=== PATIENT | female | born 1935 | race Caucasian/White ===

== ENCOUNTER 2017-12-06 14:34 | Inpatient (IN) | payer MEDICARE ==
[2017-12-06] VITALS (12 sets, daily range): BP systolic 152–198; BP diastolic 80–112; PULSE 76–117; RESP 18–28; TEMP 97.7–98.4; O2SAT 92–98
[~2017-12-06] VITALS: Ht 160 cm; Wt 66.0 kg
[2017-12-06] MEDS ORDERED: VALS1TAB70 PO (15:11)
[2017-12-06] MEDS ORDERED: METO-489 PO (15:11)
[2017-12-06] MEDS ORDERED: ESTR.3 PO (15:11)
[2017-12-06] MEDS ORDERED: WARF-18 PO (15:11)
[2017-12-06] MEDS ORDERED: OMEP20TA93 PO (15:11)
[2017-12-06] MEDS ORDERED: CART120C PO (15:11)
[2017-12-06] MEDS ORDERED: SODIUM CHLORIDE 0.9% FLUSH 10 ML FLUSH IVF PRN (15:15)
--- NOTE | 2017-12-06 15:46 | PD ---
HPI Chief Complaint: Syncope/Near-Syncope Time Seen by Provider: 15:12 Travel History International Travel<30 days: No Contact w/Intl Traveler<30days: No Traveled to known affect area: No History of Present Illness HPI 82-year-old female patient with history of hypertension, A. fib currently on Coumadin, presents to the ER today because she has had about a 3 day history of dyspnea on exertion, lightheadedness, general weakness according to her . She denies any fevers, chest pains, coughing, or any other symptoms. Modifying Factors: None Associated Signs & Symptoms: Dyspnea on exertion, lightheadedness, general weakness Risk Factors: None PFSH Past Medical History Hx Anticoagulant Therapy: Yes (warfarin) Atrial Fibrillation: Yes Hypertension: Yes Past Surgical History Hysterectomy: Yes Social History Alcohol Use: Yes (daily couple glasses ) Tobacco Use: No Substance Use: No Allergies-Medications (Allergen,Severity, Reaction): Coded Allergies: Penicillins (Verified Allergy, Severe, vomiting, 12/06/17) Sulfa (Sulfonamide Antibiotics) (Verified Allergy, Severe, vomiting, ) ciprofloxacin (Verified Allergy, Severe, vomiting, 12/06/17) Reported Meds & Prescriptions Reported Meds & Active Scripts Active Reported Warfarin 2.5 Mg Tab 2.5 Mg PO DAILY Valsartan 320 Mg Tab 320 Mg PO DAILY Premarin (Estrogens Conjugated) 0.3 Mg Tab 0.3 Mg PO DAILY Omeprazole 20 Mg Tab 20 Mg PO DAILY Metoprolol Succinate/HCTZ 100-12.5 ER 100 Mg-12.5 Mg Tab 1 Tab PO DAILY Cartia Xt (Diltiazem ER 24 HR) 120 Mg Caper 120 Mg PO DAILY Review of Systems Except as stated in HPI: all other systems reviewed are Neg Physical Exam Narrative GENERAL: Well-developed elderly female patient currently in mild distress. Awake and oriented 3. SKIN: Focused skin assessment warm/dry. HEAD: Atraumatic. Normocephalic. EYES: Pupils equal and round. No scleral icterus. No injection or drainage. ENT: No nasal bleeding or discharge. Mucous membranes pink and moist. NECK: Trachea midline. No JVD. CARDIOVASCULAR: Irregularly irregular. RESPIRATORY: No accessory muscle use. Clear to auscultation. Breath sounds equal bilaterally. GASTROINTESTINAL: Abdomen soft, non-tender, nondistended. Hepatic and splenic margins not palpable. RECTAL EXAM: No masses or tenderness, stool is brown. MUSCULOSKELETAL: No obvious deformities. No clubbing. No cyanosis. No edema. NEUROLOGICAL: Awake and alert. No obvious cranial nerve deficits. Motor grossly within normal limits. Normal speech. PSYCHIATRIC: Appropriate mood and affect; insight and judgment normal. Data Data Last Documented VS Vital Signs Date Time Temp Pulse Resp B/P (MAP) Pulse Ox O2 Delivery O2 Flow Rate FiO2 12/06/17 15:39 (126) 97 Nasal Cannula 2.00 12/06/17 15:03 101 28 12/06/17 14:49 98.2 Orders Orders Electrocardiogram (12/06/17 15:12) Complete Blood Count With Diff (12/06/17 15:12) Comprehensive Metabolic Panel (12/06/17 15:12) Magnesium (Mg) (12/06/17 15:12) Troponin I (12/06/17 15:12) Chest, Single Ap (12/06/17 15:12) Ct Brain W/O Iv Contrast(Rout) (12/06/17 15:12) Ecg Monitoring (12/06/17 15:12) Iv Access Insert/Monitor (12/06/17 15:12) Oximetry (12/06/17 15:12) Sodium Chloride 0.9% Flush (Ns Flush) (12/06/17 15:15) Prothrombin Time / Inr (Pt) (12/06/17 15:19) Act Partial Throm Time (Ptt) (12/06/17 15:19) D-Dimer (12/06/17 15:19) Type And Screen (12/06/17 16:52) Red Blood Cells (Rbc) (12/06/17 16:52) Blood Product Administration (12/06/17 16:52) Sodium Chlor 0.9% 250 Ml Inj (Ns 250 Ml (12/06/17 17:00) Sodium Chlorid 0.9% 500 Ml Inj (Ns 500 M (12/06/17 17:00) Ct Pulmonary Angiogram (12/06/17 17:02) Resp Oxygen Nasal Cannula (12/06/17 ) Electrocardiogram (12/06/17 17:05) Electrocardiogram (12/06/17 20:05) Sodium Chloride 0.9% Flush (Ns Flush) (12/06/17 17:15) Sodium Chloride 0.9% Flush (Ns Flush) (12/06/17 21:00) Nitroglycerin 2% Oint (Nitroglycerin 2% (12/06/17 18:00) Aspirin (Aspirin) (12/07/17 09:00) Labs Laboratory Tests Test 12/06/17 15:15 White Blood Count 19.1 TH/MM3 Red Blood Count 2.41 MIL/MM3 Hemoglobin 7.9 GM/DL Hematocrit 24.2 % Mean Corpuscular Volume 100.2 FL Mean Corpuscular Hemoglobin 32.7 PG Mean Corpuscular Hemoglobin Concent 32.7 % Red Cell Distribution Width 18.0 % Platelet Count 201 TH/MM3 Mean Platelet Volume 10.1 FL Neutrophils (%) (Auto) 65.1 % Lymphocytes (%) (Auto) 12.2 % Monocytes (%) (Auto) 20.0 % Eosinophils (%) (Auto) 1.1 % Basophils (%) (Auto) 1.6 % Neutrophils # (Auto) 12.5 TH/MM3 Lymphocytes # (Auto) 2.3 TH/MM3 Monocytes # (Auto) 3.8 TH/MM3 Eosinophils # (Auto) 0.2 TH/MM3 Basophils # (Auto) 0.3 TH/MM3 CBC Comment AUTO DIFF Differential Total Cells Counted 100 Neutrophils % (Manual) 59 % Band Neutrophils % 12 % Lymphocytes % 14 % Monocytes % 13 % Neutrophils # (Manual) 13.9 TH/MM3 Myelocytes 2 % Differential Comment FINAL DIFF MANUAL Toxic Granulation 1+ Platelet Estimate NORMAL Platelet Morphology Comment NORMAL Prothrombin Time 25.1 SEC Prothromb Time International Ratio 2.5 RATIO Activated Partial Thromboplast Time 36.9 SEC D-Dimer Quantitative (PE/DVT) 0.80 MG/L FEU Blood Urea Nitrogen 19 MG/DL Creatinine 0.70 MG/DL Random Glucose 165 MG/DL Total Protein 7.8 GM/DL Albumin 3.1 GM/DL Calcium Level 8.7 MG/DL Magnesium Level 1.7 MG/DL Alkaline Phosphatase 213 U/L Aspartate Amino Transf (AST/SGOT) 455 U/L Alanine Aminotransferase (ALT/SGPT) 378 U/L Total Bilirubin 2.7 MG/DL Sodium Level 137 MEQ/L Potassium Level 3.9 MEQ/L Chloride Level 105 MEQ/L Carbon Dioxide Level 21.2 MEQ/L Anion Gap 11 MEQ/L Estimat Glomerular Filtration Rate 80 ML/MIN Troponin I LESS THAN 0.02 NG/ML MDM Medical Decision Making Medical Screen Exam Complete: Yes Emergency Medical Condition: Yes Medical Record Reviewed: Yes Interpretation(s) EKG shows A. fib at a rate of 89 bpm. No signs of acute ST elevations or depressions. Laboratory Tests Test 12/06/17 15:15 White Blood Count 19.1 TH/MM3 (4.0-11.0) Red Blood Count 2.41 MIL/MM3 (4.00-5.30) Hemoglobin 7.9 GM/DL (11.6-15.3) Hematocrit 24.2 % (35.0-46.0) Mean Corpuscular Volume 100.2 FL (80.0-100.0) Red Cell Distribution Width 18.0 % (11.6-17.2) Monocytes (%) (Auto) 20.0 % (0.0-8.0) Neutrophils # (Auto) 12.5 TH/MM3 (1.8-7.7) Monocytes # (Auto) 3.8 TH/MM3 (0-0.9) Basophils # (Auto) 0.3 TH/MM3 (0-0.2) Band Neutrophils % 12 % (0-6) Monocytes % 13 % (0-8) Neutrophils # (Manual) 13.9 TH/MM3 (1.8-7.7) Myelocytes 2 % (0-0) Toxic Granulation 1+ (NORMAL) Prothrombin Time 25.1 SEC (9.8-11.6) Activated Partial Thromboplast Time 36.9 SEC (24.3-30.1) D-Dimer Quantitative (PE/DVT) 0.80 MG/L FEU (0.00-0.50) Blood Urea Nitrogen 19 MG/DL (7-18) Random Glucose 165 MG/DL (74-106) Albumin 3.1 GM/DL (3.4-5.0) Alkaline Phosphatase 213 U/L (45-117) Aspartate Amino Transf (AST/SGOT) 455 U/L (15-37) Alanine Aminotransferase (ALT/SGPT) 378 U/L (10-53) Total Bilirubin 2.7 MG/DL (0.2-1.0) Estimat Glomerular Filtration Rate 80 ML/MIN (>89) Troponin I LESS THAN 0.02 NG/ML Last [address] 12/06/17 1512 Signed Impressions: Service Date/Time: November 15:46 - CONCLUSION: 1. Mild periventricular white matter small vessel ischemic changes bilaterally. 2. Mild cerebral atrophy. 3. 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 4. No acute infarct, acute hemorrhage , midline shift or extra-axial fluid collections. Storm Garrett MD Chest X-Ray 12/06/17 1512 Signed Impressions: Service Date/Time: November 15:31 - CONCLUSION: Bibasilar patchiness consistent with atelectasis and/or infiltrates. Storm Garrett MD Differential Diagnosis Dyspnea on exertion, dizziness: Dehydration versus dysrhythmias versus CHF versus pneumonia Narrative Course Lab work shows no signs of lab work shows significant anemia. IV fluids and blood was given in the ER. Hemoccult is negative. Blood cell count is elevated as well it is uncertain whether this is a pneumonia or not. She does have elevated d-dimer and CTA was ordered for further evaluation. Her liver enzymes are fairly elevated as well and CT abdomen was also ordered for further evaluation as well. CT the brain was negative for any signs of acute intracranial processes. Patient has several issues going on at this point and will need to be evaluated further. Case is discussed with Dr. Layne for admission for further evaluation and treatment. HemaPrompt Point of Care Internal Pos. & Neg. Controls: Passed Fecal Specimen Occult Blood: Negative Diagnosis Primary Impression: Symptomatic anemia Additional Impressions: Near syncope Elevated liver enzymes Leukocytosis Admitting Information Admitting Physician Requests: Admit Dea Robbins MD Dec 06, 2017 15:46
[2017-12-06 15:55] LABS: AUTOMATED NEUTROPHIL # 12.5 TH/MM3 (1.8-7.7); BASOPHIL # 0.3 TH/MM3 (0-0.2); BASOPHIL % 1.6 % (0.0-2.0); EOSINOPHIL # 0.2 TH/MM3 (0-0.4); EOSINOPHIL % 1.1 % (0.0-4.0); HEMATOCRIT 24.2 % (35.0-46.0); HEMOGLOBIN 7.9 GM/DL (11.6-15.3); LYMPH % 12.2 % (9.0-44.0); LYMPHOCYTE # 2.3 TH/MM3 (1.0-4.8); MEAN CELL VOLUME 100.2 FL (80.0-100.0); MEAN CORPUSCULAR HEMOGLOBIN 32.7 PG (27.0-34.0); MEAN CORPUSCULAR HGB CONC 32.7 % (32.0-36.0); MEAN PLATELET VOLUME 10.1 FL (7.0-11.0); MONOCYTE # 3.8 TH/MM3 (0-0.9); NEUT % 65.1 % (16.0-70.0); PLATELET COUNT 201 TH/MM3 (150-450); RED BLOOD COUNT 2.41 MIL/MM3 (4.00-5.30); WHITE BLOOD COUNT 19.1 TH/MM3 (4.0-11.0)
--- NOTE | 2017-12-06 16:02 | RADRPT ---
EXAM DATE/TIME: 12/06/2017 15:46 [facility] COMPARISON: No previous studies available for comparison. INDICATIONS : Patient complains of dizziness. RADIATION DOSE: 33.50 CTDIvol (mGy) MEDICAL HISTORY : Hypertension. A fib SURGICAL HISTORY : Hysterectomy. ENCOUNTER: Initial ACUITY: 3 days PAIN SCALE: 0/10 LOCATION: cranial TECHNIQUE: Multiple contiguous axial images were obtained of the head. Using automated exposure control and adj ustment of the mA and/or kV according to patient size, radiation dose was kept as low as reasonably a chievable to obtain optimal diagnostic quality images. DICOM format image data is available electro nically for review and comparison. FINDINGS: CEREBRUM: Mild cerebral atrophy is noted. Scattered old tiny lacunar infarcts are noted involving the left basa l ganglia and the right cerebellar hemisphere. Mild periventricular white matter small vessel ischemi c changes are noted bilaterally. No evidence of midline shift, mass lesion, hemorrhage or acute infar ction. No extra-axial fluid collections are seen. POSTERIOR FOSSA: The cerebellum and brainstem are intact. The 4th ventricle is midline. The cerebellopontine angle i s unremarkable. EXTRACRANIAL: The visualized portion of the orbits is intact. SKULL: The calvaria is intact. No evidence of skull fracture. CONCLUSION: 1. Mild periventricular white matter small vessel ischemic changes bilaterally. 2. Mild cerebral atrophy. 3. 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 4. No acute infarct, acute hemorrhage, midline shift or extra-axial fluid collections. Storm Garrett MD on December 06, 2017 at 15:57 Board Certified Radiologist. This report was verified electronically.
--- NOTE | 2017-12-06 16:11 | RADRPT ---
EXAM DATE/TIME: 12/06/2017 15:31 [facility] COMPARISON: No previous studies available for comparison. INDICATIONS : Shortness of breath- Flu like symptoms. MEDICAL HISTORY : Hypertension. AFIB. SURGICAL HISTORY : Hysterectomy. ENCOUNTER: Initial ACUITY: 1 day PAIN SCORE: 0/10 LOCATION: Bilateral chest FINDINGS: Bibasilar patchiness is noted consistent with atelectasis and/or infiltrates. The heart is normal. Th e pulmonary vascular pattern is normal. CONCLUSION: Bibasilar patchiness consistent with atelectasis and/or infiltrates. Storm Garrett MD on December 06, 2017 at 16:09 Board Certified Radiologist. This report was verified electronically.
[2017-12-06 16:25] LABS: ALBUMIN 3.1 GM/DL (3.4-5.0); AST (GOT) 455 U/L (15-37); BICARBONATE 21.2 MEQ/L (21.0-32.0); BLOOD UREA NITROGEN 19 MG/DL (7-18); CALCIUM 8.7 MG/DL (8.5-10.1); CHLORIDE 105 MEQ/L (98-107); GLOMERULAR FILTRATION RATE 80 ML/MIN (>89); GLUCOSE,RANDOM 165 MG/DL (74-106); MAGNESIUM 1.7 MG/DL (1.5-2.5); SODIUM (NA) 137 MEQ/L (136-145)
[2017-12-06 16:26] LABS: ALT (GPT) 378 U/L (10-53)
[2017-12-06 16:28] LABS: BANDS 12 % (0-6); INTERNATIONAL NORMALIZED RATIO 2.5 RATIO; LYMPHOCYTES 14 % (9-44); MONOCYTES 13 % (0-8); MYELOCYTES 2 % (0-0); NEUTROPHIL # MANUAL DIFF 13.9 TH/MM3 (1.8-7.7); POLYS (SEG NEUTROPHILS) 59 % (16-70); PROTHROMBIN TIME - PATIENT 25.1 SEC (9.8-11.6)
[2017-12-06 16:29] LABS: D-DIMER 0.8 MG/L FEU (0.00-0.50); TOXIC GRANULATION 1+ (NORMAL)
[2017-12-06 16:30] LABS: ALKALINE PHOSPHATASE 213 U/L (45-117); TOTAL BILIRUBIN ADULT 2.7 MG/DL (0.2-1.0); TOTAL PROTEIN 7.8 GM/DL (6.4-8.2); TROPONIN I LESS THAN 0.02 NG/ML (0.02-0.05)
[2017-12-06] MEDS ORDERED: SODIUM CHLORID 0.9% 500 ML INJ 500 ML IV ONE (17:00)
[2017-12-06] MEDS ORDERED: SODIUM CHLOR 0.9% 250 ML INJ 250 ML IV ONE (17:00)
[2017-12-06] MEDS ORDERED: SODIUM CHLORIDE 0.9% FLUSH 10 ML FLUSH IV FLUSH PRN ×2 (17:15→17:30)
[2017-12-06] MEDS ORDERED: ACETAMINOPHEN 325 MG TAB PO PRN (17:30)
[2017-12-06] MEDS ORDERED: NALOXONE HCL 0.4 MG/ML AMP IV PUSH PRN (17:30)
[2017-12-06] MEDS ORDERED: MAGNESIUM HYDROXIDE SUSP 30 ML CUP PO PRN (17:30)
[2017-12-06] MEDS ORDERED: SENNOSIDES 8.6 MG TAB PO PRN (17:30)
[2017-12-06] MEDS ORDERED: LACTULOSE SYRUP 20 GM/30 ML CUP PO PRN (17:30)
--- NOTE | 2017-12-06 17:31 | HHI.HP ---
[facility] No Primary Care Physician Admission Diagnosis Symptomatic anemia/ syncope /leukocytosis Diagnoses: Chief Complaint: Exertional dyspnea Travel History International Travel<30 Days: No Contact w/Intl Traveler <30 Da: No Traveled to Known Affected Are: No History of Present Illness This is an 82-year-old female with past medical history of hypertension, atrial fibrillation, hemochromatosis, on chronic Coumadin who presented with exertional dyspnea. Patient stated that about 3 weeks ago she had a virus in which she had GI symptoms such as nausea vomiting. She stated that resolved she started feeling better but a few days ago symptoms recur. She denies any abdominal pain. Denies any urinary symptoms. Patient then stated that she felt very fatigued and with exertion she felt very short of breath. Patient stated that she never had these symptoms before. She denies any chest pain, palpitation, lightheadedness dizziness. Patient stated that symptoms were significant enough for her to come to emergency department. She denies any GI bleed. [place] Denies any fevers or chills. Denies any cough. All other review of system reviewed and negative. During my interview with patient heart rate was above 100 during the majority of the interview and went up to 150. Patient stated that she took her morning medication today. Past Family Social History Past Medical History Hypertension Hemochromatosis Atrial fibrillation On chronic Coumadin Past Surgical History 2 hip replacement Total hysterectomy secondary to fibroids Lower extremity vein stripping Reported Medications Warfarin 2.5 Mg Tab 2.5 Mg PO DAILY Valsartan 320 Mg Tab 320 Mg PO DAILY Premarin (Estrogens Conjugated) 0.3 Mg Tab 0.3 Mg PO DAILY Omeprazole 20 Mg Tab 20 Mg PO DAILY Metoprolol Succinate/HCTZ 100-12.5 ER 100 Mg-12.5 Mg Tab 1 Tab PO DAILY Cartia Xt (Diltiazem ER 24 HR) 120 Mg Caper 120 Mg PO DAILY Allergies: Coded Allergies: Penicillins (Verified Allergy, Severe, vomiting, 12/06/17) Sulfa (Sulfonamide Antibiotics) (Verified Allergy, Severe, vomiting, ) ciprofloxacin (Verified Allergy, Severe, vomiting, 12/06/17) Active Ordered Medications Current Medications Sodium Chloride (NS Flush) 2 ml UNSCH PRN IVF FLUSH AFTER USING IV ACCESS; Start 12/06/17 at 15:15 Sodium Chloride 250 ml @ 15 mls/hr ONCE ONCE IV ; Start 12/06/17 at 17:00; Stop 12/07/17 at 09:39 Sodium Chloride 500 ml @ 500 mls/hr BOLUS ONCE IV Last administered on at 17:02; Start 12/06/17 at 17:00; Stop 12/06/17 at 17:59 Sodium Chloride (NS Flush) 2 ml UNSCH PRN IV FLUSH FLUSH AFTER USING IV ACCESS ; Start 12/06/17 at 17:15; Stop 12/06/17 at 17:15; Status DC Sodium Chloride (NS Flush) 2 ml BID IV FLUSH ; Start 12/06/17 at 21:00; Stop at 21:00; Status DC Nitroglycerin (Nitroglycerin 2% Oint) 1 inch Q6HR TOP ; Start 12/06/17 at 18:00 ; Stop 12/06/17 at 18:00; Status DC Aspirin (Aspirin) 325 mg DAILY PO ; Start 12/07/17 at 09:00; Stop 12/07/17 at 09 :00; Status DC Sodium Chloride (NS Flush) 2 ml UNSCH PRN IV FLUSH FLUSH AFTER USING IV ACCESS ; Start 12/06/17 at 17:30; Status UNV Sodium Chloride (NS Flush) 2 ml BID IV FLUSH ; Start 12/06/17 at 21:00; Status UNV Acetaminophen (Tylenol) 650 mg Q4H PRN PO TEMP > 100.4; Start 12/06/17 at 17:30 ; Status UNV Naloxone HCl (Narcan Inj) 0.4 mg UNSCH PRN IV PUSH SEE LABEL COMMENTS; Start at 17:30; Status UNV Magnesium Hydroxide (Milk Of Magnesia Liq) 30 ml Q12H PRN PO Mild constipation ; Start 12/06/17 at 17:30; Status UNV Sennosides (Senokot) 17.2 mg Q12H PRN PO Moderate constipation; Start 12/06/17 at 17:30; Status UNV Lactulose (Lactulose Liq) 30 ml DAILY PRN PO SEVERE CONSITIPATION; Start at 17:30; Status UNV Family History Brother had a history of leukemia at the age of 40 Mother has a history of lymphoma Physical Exam Vital Signs Vital Signs Date Time Temp Pulse Resp B/P (MAP) Pulse Ox O2 Delivery O2 Flow Rate FiO2 12/06/17 17:09 98 18 176/100 (125) 97 Nasal Cannula 2.00 12/06/17 15:39 (126) 97 Nasal Cannula 2.00 12/06/17 15:03 101 28 198/91 (126) 94 Room Air 12/06/17 14:59 72 27 92 Room Air 12/06/17 14:49 98.2 76 22 172/89 (116) 96 Physical Exam GENERAL: This is a well-nourished, well-developed patient, in no apparent distress. SKIN: No rashes, ecchymoses or lesions. Cool and dry. HEAD: Atraumatic. Normocephalic. No temporal or scalp tenderness. EYES: Pupils equal round and reactive. Extraocular motions intact. No scleral icterus. No injection or drainage. ENT: Nose without bleeding, purulent drainage or septal hematoma. Throat without erythema, tonsillar hypertrophy or exudate. Uvula midline. Airway patent. NECK: Trachea midline. No JVD or lymphadenopathy. Supple, nontender, no meningeal signs. CARDIOVASCULAR: Regular rate and rhythm without murmurs, gallops, or rubs. RESPIRATORY: Clear to auscultation. Breath sounds equal bilaterally. No wheezes , rales, or rhonchi. GASTROINTESTINAL: Abdomen soft, non-tender, nondistended. No hepato-splenomegaly , or palpable masses. No guarding. MUSCULOSKELETAL: Extremities without clubbing, cyanosis, or edema. No joint tenderness, effusion, or edema noted. No calf tenderness. Negative Homans sign bilaterally. NEUROLOGICAL: Awake and alert. Cranial nerves II through XII intact. Motor and sensory grossly within normal limits. Five out of 5 muscle strength in all muscle groups. Normal speech. Laboratory Laboratory Tests Test 12/06/17 15:15 White Blood Count 19.1 Red Blood Count 2.41 Hemoglobin 7.9 Hematocrit 24.2 Mean Corpuscular Volume 100.2 Mean Corpuscular Hemoglobin 32.7 Mean Corpuscular Hemoglobin Concent 32.7 Red Cell Distribution Width 18.0 Platelet Count 201 Mean Platelet Volume 10.1 Neutrophils (%) (Auto) 65.1 Lymphocytes (%) (Auto) 12.2 Monocytes (%) (Auto) 20.0 Eosinophils (%) (Auto) 1.1 Basophils (%) (Auto) 1.6 Neutrophils # (Auto) 12.5 Lymphocytes # (Auto) 2.3 Monocytes # (Auto) 3.8 Eosinophils # (Auto) 0.2 Basophils # (Auto) 0.3 CBC Comment AUTO DIFF Differential Total Cells Counted 100 Neutrophils % (Manual) 59 Band Neutrophils % 12 Lymphocytes % 14 Monocytes % 13 Neutrophils # (Manual) 13.9 Myelocytes 2 Differential Comment FINAL DIFF MANUAL Toxic Granulation 1+ Platelet Estimate NORMAL Platelet Morphology Comment NORMAL Prothrombin Time 25.1 Prothromb Time International Ratio 2.5 Activated Partial Thromboplast Time 36.9 D-Dimer Quantitative (PE/DVT) 0.80 Blood Urea Nitrogen 19 Creatinine 0.70 Random Glucose 165 Total Protein 7.8 Albumin 3.1 Calcium Level 8.7 Magnesium Level 1.7 Alkaline Phosphatase 213 Aspartate Amino Transf (AST/SGOT) 455 Alanine Aminotransferase (ALT/SGPT) 378 Total Bilirubin 2.7 Sodium Level 137 Potassium Level 3.9 Chloride Level 105 Carbon Dioxide Level 21.2 Anion Gap 11 Estimat Glomerular Filtration Rate 80 Troponin I LESS THAN 0.02 Result Diagram: 12/06/17 1515 12/06/17 1515 Imaging Last Impressions Head CT 12/06/17 151 Signed Impressions: Service Date/Time: November 15:46 - CONCLUSION: 1. Mild periventricular white matter small vessel ischemic changes bilaterally. 2. Mild cerebral atrophy. 3. 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 4. No acute infarct, acute hemorrhage , midline shift or extra-axial fluid collections. Storm Garrett MD Chest X-Ray 12/06/17 151 Signed Impressions: Service Date/Time: November 15:31 - CONCLUSION: Bibasilar patchiness consistent with atelectasis and/or infiltrates. Storm Garrett MD Caprini VTE Risk Assessment Caprini VTE Risk Assessment: Mod/High Risk (score >= 2) Caprini Risk Assessment Model Point Value = 1 Point Value = 2 Point Value = 3 Point Value = 5 Age 41-60 Minor surgery BMI > 25 kg/m2 Swollen legs Varicose veins or History of unexplained or recurrent spontaneous Oral contraceptives or hormone replacement Sepsis (< 1 month) Serious lung disease, including pneumonia (< 1 month) Abnormal pulmonary function Acute myocardial infarction Congestive heart failure (< 1 month) History of inflammatory bowel disease Medical patient at bed rest Age 61-74 Arthroscopic surgery Major open surgery (> 45 min) Laparoscopic surgery (> 45 min) Malignancy Confined to bed (> 72 hours) Immobilizing plaster cast Central venous access Age >= 75 History of VTE Family history of VTE Factor V Leiden Prothrombin [id number] Lupus anticoagulant Anticardiolipin antibodies Elevated serum homocysteine Heparin-induced thrombocytopenia Other congenital or acquired thrombophilia Stroke (< 1 month) Elective arthroplasty Hip, pelvis, or leg fracture Acute spinal cord injury (< 1 month) Prophylaxis Regimen Total Risk Factor Score Risk Level Prophylaxis Regimen 0-1 Low Early ambulation 2 Moderate Order ONE of the following: *Sequential Compression Device (SCD) *Heparin 5000 units SQ BID 3-4 Higher Order ONE of the following medications: *Heparin 5000 units SQ TID *Enoxaparin/Lovenox 40 mg SQ daily (WT < 150 kg, CrCl > 30 mL/min) *Enoxaparin/Lovenox 30 mg SQ daily (WT < 150 kg, CrCl > 10-29 mL/min) *Enoxaparin/Lovenox 30 mg SQ BID (WT < 150 kg, CrCl > 30 mL/min) AND/OR *Sequential Compression Device (SCD) 5 or more Highest Order ONE of the following medications: *Heparin 5000 units SQ TID (Preferred with Epidurals) *Enoxaparin/Lovenox 40 mg SQ daily (WT < 150 kg, CrCl > 30 mL/min) *Enoxaparin/Lovenox 30 mg SQ daily (WT < 150 kg, CrCl > 10-29 mL/min) *Enoxaparin/Lovenox 30 mg SQ BID (WT < 150 kg, CrCl > 30 mL/min) AND *Sequential Compression Device (SCD) Assessment and Plan Assessment and Plan This is an 82-year-old female past medical history of atrial fibrillation who presented with exertional dyspnea Exertional dyspnea -May be secondary to atrial fibrillation with RVR since noted during her examination patient heart rate went above 100 multiple times versus symptomatic anemia versus questionable pneumonia. -Blood transfusion already order by ED provider. Will get a posttransfusion hemoglobin. Patient has no active bleeding. Will get a 2D echo and trend troponin. ? Monitor over telemetry. Symptomatic anemia -Patient does have a history of anemia but she stated last hemoglobin down was 11. -Blood transfusion ordered by ED provider. Will get a posttransfusion hemoglobin. -We will check for Hemoccult stool. Patient is on Coumadin to prevent CVA. There is no active bleeding noted. Will monitor and trend. -Continue to trend hemoglobin for stabilization. Atrial fibrillation with RVR -Patient heart rate varies from 80-150. Her heart rate in the ED mostly in the lower 100s-110s. -We will restart her home medication. May improve after blood transfusion. Will give Cardizem 30 mg as needed for heart rate greater than 100. -Continue with Coumadin. Chronic anticoagulation -INR 2.5. Continuing Coumadin. Will have pharmacy dose. Leukocytosis -WBC 19,000. Chest x-ray showed Chest x-ray shows bilateral basilar infiltrate. This may represent pneumonia versus atelectasis. Pending UA. -Questionable community acquired pneumonia -Patient did recently have a viral illness. Most likely atelectasis but patient does have a significant white count. -We will treat empirically with antibiotics until infectious etiology ruled out. We will start aztreonam since patient is allergic to penicillin, sulfa drugs, and Cipro. -Continue to trend leukocytosis. Elevated LFTs -Patient does have a history of hemochromatosis. -We will get liver ultrasound and hepatitis panel. Trend LFTs. DVT prophylaxis -Currently on Coumadin. Continue with Coumadin. Code Status full Discussed Condition With Patient and her . Physician Certification 2 Midnight Certification Type: Admission for Inpatient Services Order for Inpatient Services The services are ordered in accordance with Medicare regulations or non- Medicare payer requirements, as applicable. In the case of services not specified as inpatient-only, they are appropriately provided as inpatient services in accordance with the 2-midnight benchmark. Estimated LOS (days): 3 3 days is the estimated time the patient will need to remain in the hospital, assuming treatment plan goals are met and no additional complications. Post-Hospital Plan: Juliann Eller MD Dec 06, 2017 17:31
[2017-12-06] MEDS ORDERED: NITROGLYCERIN 2% OINT 1 GM PACKET TOP SCH (18:00)
[2017-12-06] MEDS ORDERED: DILTIAZEM HCL 30 MG TAB PO PRN (18:00)
[2017-12-06] MEDS ORDERED: IOHEXOL 350 MG/ML 10 ML VIAL (for RAD DIAG) IVCONTRAST ONE (18:26)
--- NOTE | 2017-12-06 18:34 | RADRPT ---
EXAM DATE/TIME: 12/06/2017 18:09 CORRECTION Corrected on: December 06, 2017; [facility] COMPARISON: No previous studies available for comparison. INDICATIONS : Syncope,shorness of breath. IV CONTRAST: 80 cc Omnipaque 350 (iohexol) IV ; Cumulative dose for multiple exams. RADIATION DOSE: 8.52 CTDIvol (mGy) MEDICAL HISTORY : Hypertension. A-fib SURGICAL HISTORY : Hysterectomy. ENCOUNTER: Initial ACUITY: 3 days PAIN SCALE: 0/10 LOCATION: chest TECHNIQUE: Volumetric scanning of the chest was performed using a pulmonary embolism protocol MIP images were re constructed. Using automated exposure control and adjustment of the mA and/or kV according to patien t size, radiation dose was kept as low as reasonably achievable to obtain optimal diagnostic quality images. DICOM format image data is available electronically for review and comparison. Follow-up recommendations for detected pulmonary nodules are based at a minimum on nodule size and pa tient risk factors according to Fleischner Society Guidelines. FINDINGS: No pulmonary embolus. Mild cardiac enlargement, mostly the right and left atria. Coronary artery calcification noted. Small to moderate bilateral pleural effusions are present and there is associated mild dependent/comp ressive atelectasis of the bases. There are mildly enlarged mediastinal lymph nodes for example pretracheal 17 x 22 mm and subcarinal 2 1 x 30 mm. Shotty bilateral axillary lymph nodes. CONCLUSION: 1. No pulmonary embolus. 2. Small to moderate bilateral pleural effusions. 3. Mild dependent/compressive atelectasis of both bases. 4. Mild biatrial enlargement of the heart. 5. Coronary artery calcification. 6. Nonspecific mediastinal lymphadenopathy. Evan Jimenez MD on December 06, 2017 at 18:30 Board Certified Radiologist. This report was verified electronically. Evan Jimenez MD on December 06, 2017 at 18:40 Board Certified Radiologist. This report was verified electronically.
--- NOTE | 2017-12-06 18:41 | RADRPT ---
EXAM DATE/TIME: 12/06/2017 18:09 [facility] COMPARISON: No previous studies available for comparison. INDICATIONS : Nausea,vomiting,diarrhea IV CONTRAST: 80 cc Omnipaque 350 (iohexol) IV ; Cumulative dose for multiple exams. ORAL CONTRAST: No oral contrast ingested. RADIATION DOSE: 16.50 CTDIvol (mGy) MEDICAL HISTORY : Hypertension. A-fib SURGICAL HISTORY : Hysterectomy. ENCOUNTER: Initial ACUITY: 3 weeks PAIN SCALE: 0/10 LOCATION: Abdomen TECHNIQUE: Volumetric scanning of the abdomen and pelvis was performed. Using automated exposure control and ad justment of the mA and/or kV according to patient size, radiation dose was kept as low as reasonably achievable to obtain optimal diagnostic quality images. DICOM format image data is available electro nically for review and comparison. FINDINGS: There is air in the lumen of the urinary bladder and also some air within the right wall of the urina ry bladder. Etiology of this is uncertain. There is adjacent sigmoid colon diverticulosis but no high -grade inflammatory changes are seen. No abscess or perforation. The pelvic cavity structures are con siderably obscured due to to metallic streak artifact from the patient's eye lateral hip arthroplasti es. There is small free fluid. Apparent previous hysterectomy. Mildly heterogeneous liver suggesting vascular congestion. No focal hepatic lesions seen. The spleen, pancreas and adrenal glands and kidneys are within normal limits. Shotty retroperitoneal and mesenteric lymph nodes. Nothing pathologic by size criteria. There is a minimally displaced fracture of the left inferior pubic ramus without definite healing. De generative changes are seen of the spine. CONCLUSION: 1. Air in the urinary bladder including some in the right wall of the bladder. This is nonspecific bu t the differential would include emphysematous cystitis but this is considered somewhat unlikely as I don't see significant wall thickening or high-grade inflammatory changes. A colovesical fistula woul d also be in the differential. Diverticulosis without definite diverticulitis seen of the adjacent si gmoid colon. Finally, as there is age indeterminate but potentially acute left inferior pubic ramus f racture, the air in the bladder could be posttraumatic. If so, only a small amount of urine has rad d. 2. Suspected venous congestion of the liver. Otherwise, solid organs are within normal limits. Evan Jimenez MD on December 06, 2017 at 18:35 Board Certified Radiologist. This report was verified electronically.
[2017-12-06] MEDS: AZTREONAM INJ 1,000 MG in SODIUM CHLORIDE 0.9% INJ 100 ML IV SCH (20:45)
[2017-12-06] MEDS: SODIUM CHLORIDE 0.9% FLUSH 10 ML FLUSH IV FLUSH SCH (20:47)
[2017-12-06] MEDS ORDERED: SODIUM CHLORIDE 0.9% FLUSH 10 ML FLUSH IV FLUSH SCH (21:00)
[2017-12-07] VITALS (20 sets, daily range): BP systolic 145–178; BP diastolic 82–112; PULSE 20–110; RESP 18–22; TEMP 97.8–98.5; O2SAT 94–100
[2017-12-07] MEDS ORDERED: cloNIDine HCL 0.1 MG TAB PO ONE (00:30)
[2017-12-07] MEDS: AZTREONAM INJ 1,000 MG in SODIUM CHLORIDE 0.9% INJ 100 ML IV SCH ×3 (04:25→20:00)
[2017-12-07] MEDS ORDERED: ENALAPRILAT 2.5 MG/2 ML VIAL IV PUSH ONE (05:00)
[2017-12-07 08:54] LABS: HEMATOCRIT 29.7 % (35.0-46.0); HEMOGLOBIN 10.2 GM/DL (11.6-15.3); MEAN CELL VOLUME 95.4 FL (80.0-100.0); MEAN CORPUSCULAR HEMOGLOBIN 32.7 PG (27.0-34.0); MEAN CORPUSCULAR HGB CONC 34.3 % (32.0-36.0); MEAN PLATELET VOLUME 10.4 FL (7.0-11.0); PLATELET COUNT 186 TH/MM3 (150-450); RED BLOOD COUNT 3.12 MIL/MM3 (4.00-5.30); RED CELL DISTRIBUTION WIDTH 18.2 % (11.6-17.2)
[2017-12-07] MEDS ORDERED: ASPIRIN 325 MG TAB PO SCH (09:00)
[2017-12-07] MEDS: SODIUM CHLORIDE 0.9% FLUSH 10 ML FLUSH IV FLUSH SCH ×2 (09:00→20:59)
[2017-12-07] MEDS ORDERED: ESTROGENS CONJUGATED 0.3 MG TAB PO SCH (09:00)
[2017-12-07] MEDS ORDERED: NON-FORMULARY DRUG (Metoprolol Succinate/HCTZ 100-12.5 ER 1 TAB) PO SCH (09:00)
[2017-12-07] MEDS ORDERED: NON-FORMULARY DRUG (Omeprazole 20 MG) PO SCH (09:00)
[2017-12-07] MEDS: METOPROLOL SUCCINATE 50 MG EXTENDED RELEASE TAB PO SCH (09:01)
[2017-12-07 09:02] LABS: INTERNATIONAL NORMALIZED RATIO 2.2 RATIO; PROTHROMBIN TIME - PATIENT 22.1 SEC (9.8-11.6)
[2017-12-07] MEDS: HYDROCHLOROTHIAZIDE 12.5 MG CAP PO SCH (09:02)
[2017-12-07] MEDS: DILTIAZEM-CD 120 MG CAP ER PO SCH (09:02)
[2017-12-07] MEDS: PANTOPRAZOLE SOD 20 MG DELAYED RELEASE TAB PO SCH (09:02)
[2017-12-07] MEDS: VALSARTAN 160 MG TAB PO SCH (09:03)
--- NOTE | 2017-12-07 09:21 | HHI.PR ---
Subjective Remarks This is a pleasant 82 y/o Female wit Hypertension, Atrial Fibrillation, hemochromatosis, chronic Coumadin intake, Exertional dyspnea Patient stated that about 3 weeks ago she had a virus in which she had GI symptoms such as nausea vomiting. She stated that resolved she started feeling better but a few days ago symptoms recur. She denies any abdominal pain. Denies any urinary symptoms. Patient then stated that she felt very fatigued and with exertion she felt very short of breath. She denies any chest pain, palpitation, lightheadedness or dizziness. 12/07: Stable in her bedroom no complaint, states she had dyspnea related to activity, her by her side, had echocardiogram EF 50%, normal left ventricular size, wall thickness is normal, moderate mitral valve regurgitation, moderate to severe tricuspid regurgitation, estimated systolic pulmonary pressure is 75mm Hg. severe Pulmonary hypertension, consulted senior care specialist. Objective Vital Signs Date Time Temp Pulse Resp B/P (MAP) Pulse Ox O2 Delivery O2 Flow Rate FiO2 12/07/17 06:39 98 12/07/17 05:30 98 12/07/17 04:38 84 12/07/17 03:13 83 12/07/17 03:00 98.4 98 175/92 (119) 98 12/07/17 02:51 98.3 106 147/93 100 12/07/17 02:33 98.3 89 145/82 100 12/07/17 02:00 84 12/07/17 01:00 94 12/07/17 00:00 96 12/06/17 23:00 98.4 98 175/92 (119) 98 12/06/17 23:00 114 12/06/17 22:35 98 Nasal Cannula 2.00 12/06/17 22:01 98.4 111 152/80 97 12/06/17 22:00 104 12/06/17 21:39 98.4 117 173/84 97 12/06/17 21:00 104 12/06/17 20:00 102 12/06/17 20:00 97.7 111 180/112 (134) 92 12/06/17 19:00 105 12/06/17 17:09 98 18 176/100 (125) 97 Nasal Cannula 2.00 12/06/17 15:39 (126) 97 Nasal Cannula 2.00 12/06/17 15:03 101 28 198/91 (126) 94 Room Air 12/06/17 14:59 72 27 92 Room Air 12/06/17 14:49 98.2 76 22 172/89 (116) 96 I/O 12/06/17 12/06/17 12/06/17 12/07/17 12/07/17 12/07/17 07:00 15:00 23:00 07:00 15:00 23:00 Intake Total 550 ml 1150 ml Output Total 300 ml Balance 550 ml 850 ml Intake Oral 240 ml IV Total 500 ml Packed Cells 800 ml Blood Product IV Normal Saline Flush 50 ml 110 ml Output Urine Total 300 ml Result Diagram: 12/07/17 0835 12/06/17 1515 Imaging Last Impressions Abdomen/Pelvis CT 12/06/17 1712 Signed Impressions: Service Date/Time: November 18:09 - CONCLUSION: 1. Air in the urinary bladder including some in the right wall of the bladder. This is nonspecific but the differential would include emphysematous cystitis but this is considered somewhat unlikely as I don't see significant wall thickening or high-grade inflammatory changes. A colovesical fistula would also be in the differential. Diverticulosis without definite diverticulitis seen of the adjacent sigmoid colon. Finally, as there is age indeterminate but potentially acute left inferior pubic ramus fracture, the air in the bladder could be posttraumatic. If so, only a small amount of urine has leaked. 2. Suspected venous congestion of the liver. Otherwise, solid organs are within normal limits. Evan Jimenez MD CT Angiography 12/06/17 1702 Signed Impressions: Service Date/Time: November 18:09 - CONCLUSION: 1. No pulmonary embolus. 2. Small to moderate bilateral pleural effusions. 3. Mild dependent/compressive atelectasis of both bases. 4. Mild biatrial enlargement of the heart. 5. Coronary artery calcification. 6. Nonspecific mediastinal lymphadenopathy. Evan Jimenez MD Head CT 12/06/17 1512 Signed Impressions: Service Date/Time: November 15:46 - CONCLUSION: 1. Mild periventricular white matter small vessel ischemic changes bilaterally. 2. Mild cerebral atrophy. 3. 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 4. No acute infarct, acute hemorrhage , midline shift or extra-axial fluid collections. Storm Garrett MD Chest X-Ray 12/06/17 1512 Signed Impressions: Service Date/Time: November 15:31 - CONCLUSION: Bibasilar patchiness consistent with atelectasis and/or infiltrates. Storm Garrett MD Procedures None Other Results Laboratory Tests Test 12/06/17 15:15 12/06/17 20:24 12/07/17 08:35 Neutrophils (%) (Auto) 65.1 % Lymphocytes (%) (Auto) 12.2 % Monocytes (%) (Auto) 20.0 % Eosinophils (%) (Auto) 1.1 % Basophils (%) (Auto) 1.6 % Neutrophils # (Auto) 12.5 TH/MM3 Lymphocytes # (Auto) 2.3 TH/MM3 Monocytes # (Auto) 3.8 TH/MM3 Eosinophils # (Auto) 0.2 TH/MM3 Basophils # (Auto) 0.3 TH/MM3 CBC Comment AUTO DIFF Differential Total Cells Counted 100 Neutrophils % (Manual) 59 % Band Neutrophils % 12 % Lymphocytes % 14 % Monocytes % 13 % Neutrophils # (Manual) 13.9 TH/MM3 Myelocytes 2 % Differential Comment FINAL DIFF MANUAL Toxic Granulation 1+ Platelet Estimate NORMAL Platelet Morphology Comment NORMAL Activated Partial Thromboplast Time 36.9 SEC D-Dimer Quantitative (PE/DVT) 0.80 MG/L FEU Estimat Glomerular Filtration Rate 80 ML/MIN Blood Urea Nitrogen 19 MG/DL Creatinine 0.70 MG/DL Random Glucose 165 MG/DL Total Protein 7.8 GM/DL Albumin 3.1 GM/DL Calcium Level 8.7 MG/DL Magnesium Level 1.7 MG/DL Alkaline Phosphatase 213 U/L Aspartate Amino Transf (AST/SGOT) 455 U/L Alanine Aminotransferase (ALT/SGPT) 378 U/L Total Bilirubin 2.7 MG/DL Sodium Level 137 MEQ/L Potassium Level 3.9 MEQ/L Chloride Level 105 MEQ/L Carbon Dioxide Level 21.2 MEQ/L B-Type Natriuretic Peptide 698 PG/ML Hepatitis A IgM Antibody NONREACTIVE Hepatitis B Surface Antigen NONREACTIVE Hepatitis B Core IgM Antibody NONREACTIVE Hepatitis C IgG Antibody NONREACTIVE White Blood Count 16.0 TH/MM3 Red Blood Count 3.12 MIL/MM3 Hemoglobin 10.2 GM/DL Hematocrit 29.7 % Mean Corpuscular Volume 95.4 FL Mean Corpuscular Hemoglobin 32.7 PG Mean Corpuscular Hemoglobin Concent 34.3 % Red Cell Distribution Width 18.2 % Platelet Count 186 TH/MM3 Mean Platelet Volume 10.4 FL Prothrombin Time 22.1 SEC Prothromb Time International Ratio 2.2 RATIO Objective Remarks GENERAL: This is a well-nourished, well-developed patient, in no apparent distress. SKIN: No rashes, ecchymoses or lesions. Cool and dry. HEAD: Atraumatic. Normocephalic. No temporal or scalp tenderness. EYES: Pupils equal round and reactive. Extraocular motions intact. No scleral icterus. No injection or drainage. ENT: Nose without bleeding, purulent drainage or septal hematoma. Throat without erythema, tonsillar hypertrophy or exudate. Uvula midline. Airway patent. NECK: Trachea midline. No JVD or lymphadenopathy. Supple, nontender, no meningeal signs. CARDIOVASCULAR: Regular rate and rhythm without murmurs, gallops, or rubs. RESPIRATORY: Clear to auscultation. Breath sounds equal bilaterally. No wheezes , rales, or rhonchi. GASTROINTESTINAL: Abdomen soft, non-tender, nondistended. No hepato-splenomegaly , or palpable masses. No guarding. MUSCULOSKELETAL: Extremities without clubbing, cyanosis, or edema. No joint tenderness, effusion, or edema noted. No calf tenderness. Negative Homans sign bilaterally. NEUROLOGICAL: Awake and alert. Cranial nerves II through XII intact. Motor and sensory grossly within normal limits. Five out of 5 muscle strength in all muscle groups. Normal speech. Medications and IVs Current Medications Medications (Trade) Dose Ordered Sig/Angeline Route Start Time Stop Time Status Last Admin Sodium Chloride 250 ml @ 15 mls/hr ONCE ONCE IV 12/06/17 17:00 12/07/17 09:39 12/06/17 17:00 (NS Flush) 2 ml UNSCH PRN IV FLUSH 12/06/17 17:30 (NS Flush) 2 ml BID IV FLUSH 12/06/17 21:00 12/07/17 09:00 (Tylenol) 650 mg Q4H PRN PO 12/06/17 17:30 (Narcan Inj) 0.4 mg UNSCH PRN IV PUSH 12/06/17 17:30 (Milk Of Magnesia Liq) 30 ml Q12H PRN PO 12/06/17 17:30 (Senokot) 17.2 mg Q12H PRN PO 12/06/17 17:30 (Lactulose Liq) 30 ml DAILY PRN PO 12/06/17 17:30 (Protonix) 20 mg DAILY PO 12/07/17 09:00 12/07/17 09:02 (Cardizem Cd) 120 mg DAILY PO 12/07/17 09:00 12/07/17 09:02 (Premarin) 0.3 mg DAILY PO 12/07/17 09:00 12/07/17 09:00 (Diovan) 320 mg DAILY PO 12/07/17 09:00 12/07/17 09:03 (Coumadin) 2.5 mg DAILY@1600 PO 12/07/17 16:00 Pharmacy Profile Note 0 ml @ 0 mls/hr UNSCH OTHER 12/06/17 17:45 Aztreonam 1000 mg/ Sodium Chloride 100 ml @ 200 mls/hr Q8H IV 12/06/17 20:00 12/07/17 04:25 (Cardizem) 30 mg Q6HR PRN PO 12/06/17 18:00 12/06/17 20:45 (Toprol Xl) 100 mg DAILY PO 12/07/17 09:00 12/07/17 09:01 (Microzide) 12.5 mg DAILY PO 12/07/17 09:00 12/07/17 09:02 A/P Assessment and Plan This is an 82-year-old female past medical history of atrial fibrillation who presented with exertional dyspnea 1. Exertional dyspnea multifactorial continue oxygen. 2. Atrial Fibrillation with RVR to continue Cardizem, Echocardiogram performed : EF 50%, normal left ventricular size, wall thickness is normal, moderate mitral valve regurgitation, moderate to severe tricuspid regurgitation, estimated systolic pulmonary pressure is 75mm Hg. severe Pulmonary hypertension, consulted senior care specialist. Cardiology consult laboratory complete TSH, Free T4, Lipid panel, hemoglobin A1C, Thiamine, Vitamin B 12, Folate. CHADS2-VASC score 4 Age, Hypertension, Sex Female Needs anticoagulation is on Warfarin INR therapeutic, has Mediastinal Lymphadenopathy asked for senior care specialist consult 3. Symptomatic anemia, Hemoglobin 7.9 improved to 10.2 asked for iron, TIBC, Ferritin, Hemoccult, improving dyspnea but continue 4. Leukocytosis CXR showed bilateral infiltrates, probable pneumonia, allergic to Penicillin on Aztreonam. improving to 16 from 19.1 5. elevated LFTs probable ischemic improving, hepatitis panel negative. 6. hemochromatosis by history asked for Ferritin levels. 7. electrolyte derangement Potassium 3.5, magnesium 1.8 and Phosphorus 1.7 replaced. DVT prophylaxis -Currently on Coumadin. Continue with Coumadin. INR 2.2 today Pharmacy following Warfarin dosages. Code Status full Discussed Condition With patient and her in the room. Dilip Correa MD Dec 07, 2017 09:21
[2017-12-07 09:23] LABS: ALBUMIN 2.8 GM/DL (3.4-5.0); ALT (GPT) 261 U/L (10-53); AST (GOT) 237 U/L (15-37); BLOOD UREA NITROGEN 16 MG/DL (7-18); CALCIUM 8.1 MG/DL (8.5-10.1); CHLORIDE 107 MEQ/L (98-107); CREATININE 0.53 MG/DL (0.50-1.00); GLOMERULAR FILTRATION RATE 111 ML/MIN (>89); GLUCOSE,RANDOM 108 MG/DL (74-106); SODIUM (NA) 138 MEQ/L (136-145)
[2017-12-07 09:29] LABS: ALKALINE PHOSPHATASE 188 U/L (45-117); TOTAL BILIRUBIN ADULT 3.1 MG/DL (0.2-1.0); TOTAL PROTEIN 7.1 GM/DL (6.4-8.2); TROPONIN I LESS THAN 0.02 NG/ML (0.02-0.05)
[2017-12-07] MEDS ORDERED: POTASSIUM CHLORIDE 20 MEQ CONTROLLED RELEASE TAB PO ONE (09:30)
[2017-12-07 09:47] LABS: MAGNESIUM 1.8 MG/DL (1.5-2.5); PHOSPHORUS 1.7 MG/DL (2.5-4.9)
[2017-12-07 10:01] LABS: TROPONIN I LESS THAN 0.02 NG/ML (0.02-0.05)
--- NOTE | 2017-12-07 11:13 | EKG ---
Date Performed: 12/06/2017 Time Performed: 18:30:44 PTAGE: 82 years EKG: ATRIAL FIBRILLATION WITH RAPID VENTRICULAR RESPONSE NONSPECIFIC T-WAVE ABNORMALITY ABNORMAL RHYTHM ECG PREVIOUS TRACING : 12/06/2017 15.39 Since the previous tracing, no significant change noted DOCTOR: Ajay Parra Interpretating Date/Time 12/07/2017 11:10:14
--- NOTE | 2017-12-07 11:37 | RADRPT ---
EXAM DATE/TIME: 12/07/2017 09:51 [facility] COMPARISON: No previous studies available for comparison. INDICATIONS : Increased lab values. MEDICAL HISTORY : Hypertension. A-fib SURGICAL HISTORY : Hysterectomy. ENCOUNTER: Subsequent ACUITY: 1 day PAIN SCORE: 0/10 LOCATION: Bilateral upper quadrant MEASUREMENTS: LIVER: 13.8 cm length COMMON DUCT: 4 mm RIGHT KIDNEY: 10.7 x 4.9 x 5.2 cm SPLEEN: 10.5 cm length FINDINGS: There is limited visualization of the pancreas. The liver, common bile duct, right kidney and spleen unremarkable. Multiple gallstones gallbladder sludge but no gallbladder wall thickening. Common bile duct normal caliber. Bilateral pleural effusions. Portal vein flowed normal direction. CONCLUSION: 1. Numerous gallstones with sludge but without biliary ductal dilatation or gallbladder wall thickeni ng. No free fluid. Jovanni Meeks MD on December 07, 2017 at 11:34 Board Certified Radiologist. This report was verified electronically.
[2017-12-07] MEDS ORDERED: POTASSIUM PHOSPHATE INJ 21 MMOL in SODIUM CHLORIDE 0.9% INJ 150 ML IV ONE (13:30)
--- NOTE | 2017-12-07 13:51 | EKG ---
Date Performed: 12/06/2017 Time Performed: 15:39:34 PTAGE: 82 years EKG: ATRIAL FIBRILLATION WITH ABERRANT CONDUCTION OR VENTRICULAR PREMATURE COMPLEXES NONSPECIFIC ST & T-WAVE ABNORMALITY ABNORMAL RHYTHM ECG NO PREVIOUS TRACING Cannot rule out ischemia. Clinical correlation recommended. DOCTOR: Ajay Parra Interpretating Date/Time 12/07/2017 13:50:22
[2017-12-07] MEDS: MAGNESIUM SULFATE 1 GM PREMIX 100 ML IV SCH ×2 (14:04→15:51)
--- NOTE | 2017-12-07 15:09 | ECHRPT ---
Indication: A FIB FLUTTER CONCLUSIONS Normal left ventricular size. Wall thickness is normal. The left ventricular systolic function is low normal with an estimated ejection fraction 50%. No de finite regional wall motion abnormality. The left atrial size is moderately dilated. The right atrial size is nzit-[id number] dilated. Moderate mitral annular calcification is present. Moderate mitral valve regurgitation. Trileaflet aortic valve. Mild leaflet calcification. No aortic valve stenosis or regurgitation. There is moderate to severe tricuspid regurgitation. The estimated systolic pulmonary pressure is 75 mm Hg. A small left sided pleural effusion is noted. BP: 175 / 92 HR: 98 Rhythm: MEASUREMENTS (Male / Female) Normal Values Technical Quality:Good 2D ECHO LV Diastolic Diameter PLAX 4.0 cm 4.2 - 5.9 / 3.9 - 5.3 cm LV Systolic Diameter PLAX 3.3 cm IVS Diastolic Thickness 1.6 cm 0.6 - 1.0 / 0.6 - 0.9 cm LVPW Diastolic Thickness 0.6 cm 0.6 - 1.0 / 0.6 - 0.9 cm LV Relative Wall Thickness 0.6 RV Internal Dim ED PLAX 2.2 cm LA Systolic Diameter LX 4.0 cm 3.0 - 4.0 / 2.7 - 3.8 cm M-MODE Aortic Root Diameter MM 2.9 cm AV Cusp Separation MM 1.7 cm DOPPLER Mitral E Point Velocity 114.0 cm/s TR Peak Velocity 430.0 cm/s TR Peak Gradient 74.0 mmHg Right Atrial Pressure 5.0 mmHg Pulmonary Artery Systolic Pressu 79.0 mmHg Right Ventricular Systolic Press 79.0 mmHg FINDINGS LEFT VENTRICLE Normal left ventricular size. Wall thickness is normal. The left ventricular systolic function is low normal with an estimated ejection fraction 50%. No de finite regional wall motion abnormality. RIGHT VENTRICLE Normal right ventricular size and systolic function. LEFT ATRIUM The left atrial size is moderately dilated. RIGHT ATRIUM The right atrial size is [id number] dilated. ATRIAL SEPTUM Normal atrial septal thickness without atrial level shunting by limited color doppler interrogation. AORTA The aortic root and proximal ascending aorta are normal in size on limited imaging. MITRAL VALVE Moderate mitral annular calcification is present. Moderate mitral valve regurgitation. AORTIC VALVE Trileaflet aortic valve. Mild leaflet calcification. No aortic valve stenosis or regurgitation. TRICUSPID VALVE There is moderate to severe tricuspid regurgitation. The estimated systolic pulmonary pressure is 75 mm Hg. PULMONARY VALVE No pulmonary valve regurgitation or stenosis. VESSELS The inferior vena cava is normal in size. PERICARDIUM A small left sided pleural effusion is noted. Nomi Lee MD (Electronically Signed) Final Date:07 December 2017 15:08
[2017-12-07] MEDS ORDERED: WARFARIN SOD 3 MG TAB PO ONE (16:00)
--- NOTE | 2017-12-07 19:03 | MB ---
cc: Nomi Lee MD DATE OF CONSULT: 12/07/2017 REASON FOR CONSULTATION: Atrial fibrillation, severe pulmonary hypertension. HISTORY OF PRESENT ILLNESS: The patient is an 82-year-old white female, who receives most of her medical care up in [place], with a history of chronic atrial fibrillation, and hypertension, who presented to the hospital with an approximately 4-day history of increasing shortness of breath. In the last 3-4 days, she has also felt mildly lightheaded without syncope or near syncope. She denies chest pain, palpitations, pedal edema, paroxysmal nocturnal dyspnea, orthopnea, and wheezing. She reports a mostly nonproductive cough without definite hemoptysis over the last few days. She also reports a possible viral gastroenteritis about 2 weeks ago, which has since resolved. The patient states in the last 3-4 days she has been barely able to walk 50 yards without considerable dyspnea. Here in the hospital, she was found to be anemic. The patient states she does feel better after transfusion of blood. Transthoracic echo also shows evidence for severe pulmonary hypertension with an estimated systolic pulmonary artery pressure of 70-75 mmHg, with low normal left ventricular systolic function, ejection fraction 50%. PAST MEDICAL HISTORY: 1. Hypertension. 2. Chronic atrial fibrillation. CARDIAC MEDICATIONS AT HOME: 1. Warfarin 2.5 mg daily. 2. Valsartan 320 mg daily. 3. Metoprolol succinate/HCT 100/12.5 one daily. 4. Cartia 120 mg daily. ALLERGIES: PENICILLIN, SULFA, CIPRO. FAMILY HISTORY: Noncontributory. SOCIAL HISTORY: The patient denies any history of alcohol or tobacco abuse. REVIEW OF SYSTEMS: As in the history of present illness, otherwise negative or noncontributory. She also denies headache, abdominal pain, melena, and bright red blood per rectum. PHYSICAL EXAMINATION: VITAL SIGNS: Blood pressure 167/89 with a pulse of 90, respirations 18. GENERAL: She is a well-developed, well-nourished white female, in no acute distress. NECK: Jugular venous pressure is 8 cm of water. Carotid pulses are 2+ bilaterally and without bruits. LUNGS: Examination of the chest reveals diminished breath sounds at the bases, left greater than right. HEART: On cardiac examination, she has an irregularly irregular rhythm without S3 or murmur. ABDOMEN: She has a soft, nontender abdomen, bowel sounds are present. There is no definite hepatosplenomegaly. EXTREMITIES: Reveals no clubbing, cyanosis or edema. DIAGNOSTIC STUDIES: EKG from 12/06/2017 at 3:39 p.m. shows atrial fibrillation, nonspecific ST and T-wave abnormalities. Laboratory data includes potassium 3.5, BUN 16, creatinine 0.53, AST 237, ALT 261. CK 20. Troponin less than 0.02. Brain natriuretic peptide level 698. INR 2.2. WBC 16.0, hemoglobin 10.2 (7.9 on admission), platelets 186. Chest x-ray shows bibasilar infiltrates and/or atelectasis. IMPRESSION: An 82-year-old white female with a history of chronic atrial fibrillation, hypertension, admitted with increasing shortness of breath and lightheadedness. The etiology of her symptoms is probably multifactorial including anemia, probable severe pulmonary hypertension, possibly congestive heart failure. She has felt symptomatically improved with blood transfusion. Her echocardiogram has been reviewed. The tricuspid regurgitation signal is good, so the measurement of her systolic pulmonary artery pressure of 70-75 mmHg is probably accurate. The etiology of her pulmonary hypertension does not appear to be cardiac in origin. Her left ventricular function is within normal limits, although at the lower end of normal. Her mitral regurgitation does not appear to be severe. CT angiogram of the chest reportedly shows no evidence for pulmonary embolus. There are small to moderate bilateral pleural effusions noted and her brain natriuretic peptide level is elevated, suggesting congestive heart failure. Her congestive heart failure may have been precipitated by anemia. There is no evidence for acute coronary syndrome. Cardiac enzymes are negative for a myocardial infarction. EKG shows nonspecific ST and T-wave abnormalities. RECOMMENDATIONS: 1. Mild diuresis. 2. Await pulmonary consultation. Consider changing her diltiazem to Procardia and/or using sildenafil for her pulmonary hypertension. 3. Continue oral anticoagulation therapy for her chronic atrial fibrillation and severe pulmonary hypertension. 4. Continued workup for her anemia. 5. Will follow up periodically. MD RANDALL Gomez/FARHAT , 06:36 PM , 07:01 PM VINAYAK
[2017-12-07 19:46] LABS: CHOLESTEROL 97 MG/DL (120-200); IRON (FE) 232 MCG/DL (50-170); TRIGLYCERIDES 109 MG/DL (42-150)
[2017-12-07 20:11] LABS: CHOLESTEROL/ HDL RATIO 4.66 RATIO; FERRITIN 977 NG/ML (8-252); FOLATE 4.3 NG/ML (3.1-17.5); FREE T4 1.18 NG/DL (0.76-1.46); HDL CHOLESTEROL 20.8 MG/DL (40.0-60.0); LDL CHOLESTEROL 54 MG/DL (0-99); TOTAL IRON BINDING CAPACITY 230 MCG/DL (250-450)
[2017-12-07] MEDS: FUROSEMIDE 20 MG/2 ML VIAL IV PUSH SCH (20:59)
[2017-12-07 21:18] LABS: % SATURATION IRON PROFILE GREATER THAN 50.0 % (20-50)
[2017-12-08] VITALS (9 sets, daily range): BP systolic 102–175; BP diastolic 53–162; PULSE 81–114; RESP 20–24; TEMP 92–98.3; O2SAT 94–98
[2017-12-08] MEDS: AZTREONAM INJ 1,000 MG in SODIUM CHLORIDE 0.9% INJ 100 ML IV SCH ×3 (03:16→21:42)
[2017-12-08 06:47] LABS: INTERNATIONAL NORMALIZED RATIO 2.5 RATIO; PROTHROMBIN TIME - PATIENT 25.6 SEC (9.8-11.6)
[2017-12-08] MEDS: DILTIAZEM-CD 120 MG CAP ER PO SCH (09:12)
[2017-12-08] MEDS: FUROSEMIDE 20 MG/2 ML VIAL IV PUSH SCH ×2 (09:12→21:42)
[2017-12-08] MEDS: PANTOPRAZOLE SOD 20 MG DELAYED RELEASE TAB PO SCH (09:12)
[2017-12-08] MEDS: METOPROLOL SUCCINATE 50 MG EXTENDED RELEASE TAB PO SCH (09:12)
[2017-12-08] MEDS: SODIUM CHLORIDE 0.9% FLUSH 10 ML FLUSH IV FLUSH SCH ×2 (09:12→21:43)
[2017-12-08] MEDS: VALSARTAN 160 MG TAB PO SCH (09:12)
[2017-12-08] MEDS: HYDROCHLOROTHIAZIDE 12.5 MG CAP PO SCH (09:12)
--- NOTE | 2017-12-08 11:01 | HHI.PR ---
Subjective Remarks The patient states that her respiratory status is improving. Patient still feels shortness of breath upon exertion however these has improved greatly after the point that she was able to get out of the bed without assistance and go to the bathroom. The patient denies fevers or chills. The patient states she still coughing. Patient is afebrile. Objective Vitals Vital Signs Date Time Temp Pulse Resp B/P (MAP) Pulse Ox O2 Delivery O2 Flow Rate FiO2 12/08/17 08:00 92.0 110 22 175/86 (115) 94 12/08/17 04:00 97.7 91 20 /162 98 12/08/17 04:00 110 12/08/17 00:00 98.1 81 24 174/86 (115) 95 12/08/17 00:00 95 12/08/17 00:00 Nasal Cannula 2.00 12/07/17 20:00 110 12/07/17 20:00 98.3 99 20 160/85 (110) 96 12/07/17 20:00 Nasal Cannula 2.00 12/07/17 16:00 97.9 20 18 167/89 (115) 96 12/07/17 15:00 96 12/07/17 15:00 94 Nasal Cannula 2.50 12/07/17 13:00 100 12/07/17 12:00 108 12/07/17 11:00 94 Nasal Cannula 2.50 12/07/17 11:00 98.5 108 22 152/92 (112) 94 12/07/17 11:00 97 12/07/17 10:45 94 Nasal Cannula 2.00 I/O 12/07/17 12/07/17 12/07/17 12/08/17 12/08/17 12/08/17 07:00 15:00 23:00 07:00 15:00 23:00 Intake Total 1150 ml 410 ml 707 ml Output Total 300 ml Balance 850 ml 410 ml 707 ml Intake Oral 240 ml 310 ml 550 ml IV Total 100 ml 157 ml Packed Cells 800 ml Blood Product IV Normal Saline Flush 110 ml Output Urine Total 300 ml # Voids 1 1 # Bowel Movements 0 1 Result Diagram: 12/07/17 0835 12/07/17 0835 Imaging Last Impressions Liver Ultrasound 12/07/17 0000 Signed Impressions: Service Date/Time: Thursday, December 07, 2017 09:51 - CONCLUSION: 1. Numerous gallstones with sludge but without biliary ductal dilatation or gallbladder wall thickening. No free fluid. Jovanni Meeks MD Abdomen/Pelvis CT 12/06/171711 Signed Impressions: Service Date/Time: November 18:09 - CONCLUSION: 1. Air in the urinary bladder including some in the right wall of the bladder. This is nonspecific but the differential would include emphysematous cystitis but this is considered somewhat unlikely as I don't see significant wall thickening or high-grade inflammatory changes. A colovesical fistula would also be in the differential. Diverticulosis without definite diverticulitis seen of the adjacent sigmoid colon. Finally, as there is age indeterminate but potentially acute left inferior pubic ramus fracture, the air in the bladder could be posttraumatic. If so, only a small amount of urine has leaked. 2. Suspected venous congestion of the liver. Otherwise, solid organs are within normal limits. Evan Jimenez MD CT Angiography 12/06/171701 Signed Impressions: Service Date/Time: November 18:09 - CONCLUSION: 1. No pulmonary embolus. 2. Small to moderate bilateral pleural effusions. 3. Mild dependent/compressive atelectasis of both bases. 4. Mild biatrial enlargement of the heart. 5. Coronary artery calcification. 6. Nonspecific mediastinal lymphadenopathy. Evan Jimenez MD Head CT 12/06/172 Signed Impressions: Service Date/Time: November 15:46 - CONCLUSION: 1. Mild periventricular white matter small vessel ischemic changes bilaterally. 2. Mild cerebral atrophy. 3. 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 4. No acute infarct, acute hemorrhage , midline shift or extra-axial fluid collections. Storm Garrett MD Chest X-Ray 12/06/17 1512 Signed Impressions: Service Date/Time: November 15:31 - CONCLUSION: Bibasilar patchiness consistent with atelectasis and/or infiltrates. Storm Garrett MD Objective Remarks Awake and alert and oriented 3. Acute distress. Breathing is nonlabored. S1-S2 Irregular rate or rythm Abdomen is soft, nt, nd no edema in lower extremities Medications and IVs Current Medications Medications (Trade) Dose Ordered Sig/Angeline Route Start Time Stop Time Status Last Admin (NS Flush) 2 ml UNSCH PRN IV FLUSH 12/06/17 17:30 (NS Flush) 2 ml BID IV FLUSH 12/06/17 21:00 12/08/17 09:12 (Tylenol) 650 mg Q4H PRN PO 12/06/17 17:30 (Narcan Inj) 0.4 mg UNSCH PRN IV PUSH 12/06/17 17:30 (Milk Of Magnesia Liq) 30 ml Q12H PRN PO 12/06/17 17:30 (Senokot) 17.2 mg Q12H PRN PO 12/06/17 17:30 (Lactulose Liq) 30 ml DAILY PRN PO 12/06/17 17:30 (Protonix) 20 mg DAILY PO 12/07/17 09:00 12/08/17 09:12 (Cardizem Cd) 120 mg DAILY PO 12/07/17 09:00 12/08/17 09:12 (Premarin) 0.3 mg DAILY PO 12/07/17 09:00 Future Hold 12/07/17 09:00 (Diovan) 320 mg DAILY PO 12/07/17 09:00 12/08/17 09:12 (Coumadin) 2.5 mg DAILY@1600 PO 12/08/17 16:00 Pharmacy Profile Note 0 ml @ 0 mls/hr UNSCH OTHER 12/06/17 17:45 Aztreonam 1000 mg/ Sodium Chloride 100 ml @ 200 mls/hr Q8H IV 12/06/17 20:00 12/08/17 03:16 (Cardizem) 30 mg Q6HR PRN PO 12/06/17 18:00 12/06/17 20:45 (Toprol Xl) 100 mg DAILY PO 12/07/17 09:00 12/08/17 09:12 (Microzide) 12.5 mg DAILY PO 12/07/17 09:00 12/08/17 09:12 (Lasix Inj) 20 mg BID IV PUSH 12/07/17 21:00 12/08/17 09:12 Urinary Catheter: No Vascular Central Line Catheter: No A/P Problem List: (1) Exertional dyspnea ICD Code: R06.09 - Other forms of dyspnea Plan: CTA negative for PE. Small to moderate bilateral pleural effusions. Mild dependent/compressive atelectasis at both bases. Mild biatrial enlargement of the heart. Likely multifactorial etiology from atrial fibrillation with RVR, symptomatic anemia and acute diastolic heart failure. Echocardiogram shows EF of 50%, no definite regional wall motion abnormality, left atrial size is moderately dilated, right atrial size is mild to moderately dilated, moderate mitral annular calcification present, moderate mitral valve regurgitation, trileaflet aortic valve but no stenosis or regurgitation. Moderate to severe tricuspid regurgitation. Pulmonary hypertension. Continue supplemental oxygen to keep oxygen saturation more than 92%. (2) Atrial fibrillation with RVR ICD Code: I48.91 - Unspecified atrial fibrillation Plan: Patient presented with heart rate between 80 and 150 bpm. Continue home medications. On Coumadin with therapeutic INR. (3) Symptomatic anemia ICD Code: D64.9 - Anemia, unspecified Status: Acute Plan: Patient has history of chronic anemia however as per patient report last hemoglobin was 11. Status post transfusion of 2 units of packed red blood cells with appropriate hemoglobin response from 7.9-10.2. Iron studies consistent with hemochromatosis with increased iron, low TIBC, increased percent saturation of iron, elevated ferritin. Check stool for Hemoccult blood. (4) Chronic anticoagulation ICD Code: Z79.01 - intermediate (current) use of anticoagulants Plan: INR therapeutic. Continue to monitor PT and INR daily. Continue Coumadin. (5) Transaminitis ICD Code: R74.0 - Nonspecific elevation of levels of transaminase and lactic acid dehydrogenase [LDH] Plan: Liver ultrasound shows numerous gallstones with sludge but without biliary ductal dilatation or gallbladder wall thickening. (6) Hypertension ICD Code: I10 - Essential (primary) hypertension Plan: Continue valsartan, metoprolol succinate, hydrochlorothiazide. Blood pressure elevated this am - as per Rn last reading with an sbp of 102 Will continue same dose of antihypertensive medications. (7) Leukocytosis ICD Code: D72.829 - Elevated white blood cell count, unspecified Status: Acute Plan: with bands of 12%. Check urinalysis. WBCs trending down, continue to monitor. Currently on IV Aztreonam - unclear what infections is being treated. (8) Abnormal CT scan, bladder ICD Code: R93.41 - Abnormal radiologic findings on diagnostic imaging of renal pelvis, ureter, or bladder Plan: CT of the abdomen and pelvis describes air in the urinary bladder. Differential diagnosis includes for similar cystitis or colovesicular fistula. Consult urology. (9) Pulmonary hypertension ICD Code: I27.20 - Pulmonary hypertension, unspecified Plan: As seen on echocardiogram described above. Etiology consulted. Continue diuresis. Await pulmonary consultation. (10) Acute diastolic heart failure ICD Code: I50.31 - Acute diastolic (congestive) heart failure Status: Acute Plan: BL pleural effusions on CTA Pulm htn echo w ef 50 % Continur furosemide Assessment and Plan DVT prophylaxis: on coumadin Discharge Planning pending urology consult and clinical improvement. Problem Qualifiers (1) Hypertension: Qualified Codes: I10 - Essential (primary) hypertension (2) Leukocytosis: Qualified Codes: D72.825 - Bandemia Darryl Gil MD Dec 08, 2017 11:01
[2017-12-08] MEDS ORDERED: cloNIDine HCL 0.1 MG TAB PO PRN (11:30)
--- NOTE | 2017-12-08 12:51 | PD.CONS ---
HPI Service Urology Consult Requested By Dr. Moi Dale Reason for Consult Air within urinary bladder Primary Care Physician No Primary Care Physician Diagnosis: (1) Exertional dyspnea ICD Code: R06.09 - Other forms of dyspnea (2) Atrial fibrillation with RVR ICD Code: I48.91 - Unspecified atrial fibrillation (3) Symptomatic anemia ICD Code: D64.9 - Anemia, unspecified (4) Chronic anticoagulation ICD Code: Z79.01 - terminal gauger (current) use of anticoagulants (5) Transaminitis ICD Code: R74.0 - Nonspecific elevation of levels of transaminase and lactic acid dehydrogenase [LDH] (6) Hypertension ICD Code: I10 - Essential (primary) hypertension (7) Leukocytosis ICD Code: D72.829 - Elevated white blood cell count, unspecified (8) Abnormal CT scan, bladder ICD Code: R93.41 - Abnormal radiologic findings on diagnostic imaging of renal pelvis, ureter, or bladder (9) Pulmonary hypertension ICD Code: I27.20 - Pulmonary hypertension, unspecified History of Present Illness 82-year-old female with history atrial fibrillation on anticoagulation therapy who was admitted for further workup and management of dyspnea. During the course of her present hospitalization a CT scan of the abdomen and pelvis was performed. Urologic findings included air within the urinary bladder as well as a small amount of air within the right bladder wall of indeterminate etiology. There was adjacent sigmoid diverticulosis noted. No inflammatory changes were appreciated. There was no pelvic lymphadenopathy. Upon further questioning, the patient denies any problems urinating. She denies dysuria or hematuria. She denies a history of recurrent urinary tract infections. She denies being recently catheterized. Review of Systems Constitutional: DENIES: Fever, Chills Respiratory: COMPLAINS OF: Shortness of breath Cardiovascular: DENIES: Chest pain Gastrointestinal: DENIES: Abdominal pain Genitourinary: DENIES: Urgency, Hematuria, Dysuria Except as stated in HPI: all other systems reviewed are Neg Past Family Social History Past Medical History Atrial fibrillation on chronic anticoagulation therapy Hypertension Hemochromatosis Past Surgical History Status post hip replacement surgery Status post hysterectomy secondary to fibroids Status post lower extremity vein stripping Reported Medications Refer to EMR Allergies: Coded Allergies: Penicillins (Verified Allergy, Severe, vomiting, 12/06/17) Sulfa (Sulfonamide Antibiotics) (Verified Allergy, Severe, vomiting, ) ciprofloxacin (Verified Allergy, Severe, vomiting, 12/06/17) Active Ordered Medications Refer to EMR Family History Brother with history leukemia Mother with history lymphoma Social History Consumes 2 alcoholic beverages daily Denies history of tobacco or intravenous drug abuse Physical Exam Vital Signs Date Time Temp Pulse Resp B/P (MAP) Pulse Ox O2 Delivery O2 Flow Rate FiO2 12/08/17 08:00 89 12/08/17 08:00 Nasal Cannula 2.00 12/08/17 08:00 92.0 110 22 175/86 (115) 94 12/08/17 04:00 97.7 91 20 /162 98 12/08/17 04:00 110 12/08/17 00:00 98.1 81 24 174/86 (115) 95 12/08/17 00:00 95 12/08/17 00:00 Nasal Cannula 2.00 12/07/17 20:00 110 12/07/17 20:00 98.3 99 20 160/85 (110) 96 12/07/17 20:00 Nasal Cannula 2.00 12/07/17 16:00 97.9 20 18 167/89 (115) 96 12/07/17 15:00 96 12/07/17 15:00 94 Nasal Cannula 2.50 12/07/17 13:00 100 Physical Exam GENERAL: This is a well-nourished, well-developed patient, in no apparent distress. SKIN: No rashes, ecchymoses or lesions. Cool and dry. HEAD: Atraumatic. Normocephalic. No temporal or scalp tenderness. EYES: Pupils equal round and reactive. Extraocular motions intact. No scleral icterus. No injection or drainage. ENT: Nose without bleeding, purulent drainage or septal hematoma. Throat without erythema, tonsillar hypertrophy or exudate. Uvula midline. Airway patent. NECK: Trachea midline. No JVD or lymphadenopathy. Supple, nontender, no meningeal signs. GASTROINTESTINAL: Abdomen soft, non-tender, nondistended. No hepato-splenomegaly , or palpable masses. No guarding. GENITOURINARY: Bladder not distended MUSCULOSKELETAL: Extremities without clubbing, cyanosis, or edema. No joint tenderness, effusion, or edema noted. No calf tenderness. Negative Homans sign bilaterally. NEUROLOGICAL: Awake and alert. Cranial nerves II through XII intact. Motor and sensory grossly within normal limits. Normal speech. Lab results reviewed: Yes Laboratory Tests Test 12/08/17 06:07 Prothrombin Time 25.6 Prothromb Time International Ratio 2.5 Result Diagram: 12/07/17 0835 12/07/17 0835 Personally reviewed images: Yes Imaging Last Impressions Liver Ultrasound 12/07/17 0000 Signed Impressions: Service Date/Time: Thursday, December 07, 2017 09:51 - CONCLUSION: 1. Numerous gallstones with sludge but without biliary ductal dilatation or gallbladder wall thickening. No free fluid. Jovanni Meeks MD Abdomen/Pelvis CT 12/06/17 1712 Signed Impressions: Service Date/Time: November 18:09 - CONCLUSION: 1. Air in the urinary bladder including some in the right wall of the bladder. This is nonspecific but the differential would include emphysematous cystitis but this is considered somewhat unlikely as I don't see significant wall thickening or high-grade inflammatory changes. A colovesical fistula would also be in the differential. Diverticulosis without definite diverticulitis seen of the adjacent sigmoid colon. Finally, as there is age indeterminate but potentially acute left inferior pubic ramus fracture, the air in the bladder could be posttraumatic. If so, only a small amount of urine has leaked. 2. Suspected venous congestion of the liver. Otherwise, solid organs are within normal limits. Evan Jimenez MD CT Angiography 12/06/17 1702 Signed Impressions: Service Date/Time: November 18:09 - CONCLUSION: 1. No pulmonary embolus. 2. Small to moderate bilateral pleural effusions. 3. Mild dependent/compressive atelectasis of both bases. 4. Mild biatrial enlargement of the heart. 5. Coronary artery calcification. 6. Nonspecific mediastinal lymphadenopathy. Evan Jimenez MD Head CT 12/06/17 1512 Signed Impressions: Service Date/Time: November 15:46 - CONCLUSION: 1. Mild periventricular white matter small vessel ischemic changes bilaterally. 2. Mild cerebral atrophy. 3. 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 4. No acute infarct, acute hemorrhage , midline shift or extra-axial fluid collections. Storm Garrett MD Chest X-Ray 12/06/17 1512 Signed Impressions: Service Date/Time: November 15:31 - CONCLUSION: Bibasilar patchiness consistent with atelectasis and/or infiltrates. Storm Garrett MD Assessment and Plan Assessment and Plan Urologic impression: Incidental finding of air within the urinary bladder of indeterminate etiology. May possibly be related to colovesical fistula formation. Recommendations: 1. Check a urinalysis 2. We will further workup as outpatient once overall medical condition stabilized 3. Patient advised to contact my office after hospital discharge to arrange follow-up Problem Qualifiers (1) Hypertension: Qualified Codes: I10 - Essential (primary) hypertension (2) Leukocytosis: Qualified Codes: D72.825 - Bandemia Luis Felipe Montemayor MD Dec 08, 2017 12:51
[2017-12-08] MEDS ORDERED: cloNIDine HCL 0.1 MG TAB PO ONE (13:00)
[2017-12-08 15:31] LABS: BILIRUBIN, URINE NEG (NEG); BLOOD, URINE NEG (NEG); GLUCOSE,URINE NEG (NEG); KETONE, URINE NEG (NEG); MUCUS URINE FEW /lpf (OCC); NITRITE,URINE NEG (NEG); SQUAMOUS EPITHELIAL CELL URINE <1 /hpf (0-5); URINE COLOR YELLOW (YELLW/STRAW); URINE LEUKOCYTE ESTERASE NEG (NEG)
[2017-12-08] MEDS: WARFARIN SOD 2.5 MG TAB PO SCH (17:37)
[2017-12-09] VITALS (9 sets, daily range): BP systolic 91–162; BP diastolic 50–94; PULSE 77–100; RESP 18–20; TEMP 97.8–99.1; O2SAT 93–98
[2017-12-09] MEDS: AZTREONAM INJ 1,000 MG in SODIUM CHLORIDE 0.9% INJ 100 ML IV SCH ×3 (04:37→21:03)
[2017-12-09] MEDS: FUROSEMIDE 20 MG/2 ML VIAL IV PUSH SCH (08:39)
[2017-12-09] MEDS: PANTOPRAZOLE SOD 20 MG DELAYED RELEASE TAB PO SCH (08:39)
[2017-12-09] MEDS: METOPROLOL SUCCINATE 50 MG EXTENDED RELEASE TAB PO SCH (08:39)
[2017-12-09] MEDS: VALSARTAN 160 MG TAB PO SCH (08:39)
[2017-12-09] MEDS: HYDROCHLOROTHIAZIDE 12.5 MG CAP PO SCH (08:40)
[2017-12-09] MEDS: SODIUM CHLORIDE 0.9% FLUSH 10 ML FLUSH IV FLUSH SCH ×2 (08:40→21:00)
[2017-12-09] MEDS ORDERED: DILTIAZEM-CD 180 MG CAP ER PO SCH (09:00)
[2017-12-09 10:42] LABS: HEMATOCRIT 30.4 % (35.0-46.0); HEMOGLOBIN 10.3 GM/DL (11.6-15.3); INTERNATIONAL NORMALIZED RATIO 2.1 RATIO; MEAN CELL VOLUME 95.1 FL (80.0-100.0); MEAN CORPUSCULAR HEMOGLOBIN 32.2 PG (27.0-34.0); MEAN CORPUSCULAR HGB CONC 33.9 % (32.0-36.0); MEAN PLATELET VOLUME 10.1 FL (7.0-11.0); PLATELET COUNT 150 TH/MM3 (150-450); PROTHROMBIN TIME - PATIENT 21.5 SEC (9.8-11.6); RED CELL DISTRIBUTION WIDTH 17.8 % (11.6-17.2); WHITE BLOOD COUNT 21.1 TH/MM3 (4.0-11.0)
[2017-12-09 11:14] LABS: ALBUMIN 2.7 GM/DL (3.4-5.0); ALKALINE PHOSPHATASE 172 U/L (45-117); ALT (GPT) 125 U/L (10-53); AST (GOT) 53 U/L (15-37); BICARBONATE 25.6 MEQ/L (21.0-32.0); BLOOD UREA NITROGEN 11 MG/DL (7-18); CALCIUM 8.1 MG/DL (8.5-10.1); CHLORIDE 101 MEQ/L (98-107); CREATININE 0.59 MG/DL (0.50-1.00); GLOMERULAR FILTRATION RATE 98 ML/MIN (>89); GLUCOSE,RANDOM 80 MG/DL (74-106); MAGNESIUM 1.6 MG/DL (1.5-2.5); PHOSPHORUS 1.7 MG/DL (2.5-4.9); SODIUM (NA) 137 MEQ/L (136-145); TOTAL PROTEIN 6.9 GM/DL (6.4-8.2)
--- NOTE | 2017-12-09 11:32 | PD.CARD.PN ---
Subjective Subjective Remarks Dyspnea much better. No dizziness, CP, palpitations, PND. Nonproductive cough also much better. Objective Medications Item Value Date Time Diltiazem HCl 180 mg 12/09/17 0900 (Cardizem Cd) DAILY/PO 12/09/17 0839 Warfarin Sodium 2.5 mg 12/08/17 1600 (Coumadin) DAILY@1600/PO 12/08/17 1737 Furosemide 20 mg 12/07/17 2100 (Lasix Inj) BID/IV PUSH 12/09/17 0839 Valsartan 320 mg 12/07/17 0900 (Diovan) DAILY/PO 12/09/17 0839 Metoprolol 100 mg 12/07/17 0900 Succinate DAILY/PO 12/09/17 0839 (Toprol Xl) Hydrochlorothiazide 12.5 mg 12/07/17 0900 (Microzide) DAILY/PO 12/09/17 0840 Current Medications Medications (Trade) Dose Ordered Sig/Angeline Route Start Time Stop Time Status Last Admin (NS Flush) 2 ml UNSCH PRN IV FLUSH 12/06/17 17:30 (NS Flush) 2 ml BID IV FLUSH 12/06/17 21:00 12/09/17 08:40 (Tylenol) 650 mg Q4H PRN PO 12/06/17 17:30 (Narcan Inj) 0.4 mg UNSCH PRN IV PUSH 12/06/17 17:30 (Milk Of Magnesia Liq) 30 ml Q12H PRN PO 12/06/17 17:30 (Senokot) 17.2 mg Q12H PRN PO 12/06/17 17:30 (Lactulose Liq) 30 ml DAILY PRN PO 12/06/17 17:30 (Protonix) 20 mg DAILY PO 12/07/17 09:00 12/09/17 08:39 (Premarin) 0.3 mg DAILY PO 12/07/17 09:00 Future Hold 12/07/17 09:00 (Diovan) 320 mg DAILY PO 12/07/17 09:00 12/09/17 08:39 (Coumadin) 2.5 mg DAILY@1600 PO 12/08/17 16:00 12/08/17 17:37 Pharmacy Profile Note 0 ml @ 0 mls/hr UNSCH OTHER 12/06/17 17:45 Aztreonam 1000 mg/ Sodium Chloride 100 ml @ 200 mls/hr Q8H IV 12/06/17 20:00 12/09/17 04:37 (Cardizem) 30 mg Q6HR PRN PO 12/06/17 18:00 12/06/17 20:45 (Toprol Xl) 100 mg DAILY PO 12/07/17 09:00 12/09/17 08:39 (Microzide) 12.5 mg DAILY PO 12/07/17 09:00 12/09/17 08:40 (Lasix Inj) 20 mg BID IV PUSH 12/07/17 21:00 12/09/17 08:39 (Cardizem Cd) 180 mg DAILY PO 12/09/17 09:00 12/09/17 08:39 (Catapres) 0.1 mg Q6H PRN PO 12/08/17 11:30 Vital Signs / I&O Vital Signs Date Time Temp Pulse Resp B/P (MAP) Pulse Ox O2 Delivery O2 Flow Rate FiO2 12/09/17 08:00 Nasal Cannula 2.00 12/09/17 08:00 100 12/09/17 08:00 98.6 77 20 91/50 (64) 98 12/09/17 04:00 97.8 94 19 152/85 (107) 98 12/09/17 03:56 99 12/09/17 00:12 98.9 92 18 162/94 (116) 93 12/08/17 23:52 98 12/08/17 21:50 Nasal Cannula 2.00 12/08/17 20:00 98.1 106 20 165/99 (121) 96 12/08/17 19:59 103 12/08/17 16:31 85 12/08/17 16:00 98.3 110 20 162/54 (90) 97 12/08/17 12:00 98.2 114 20 102/53 (69) 96 12/08/17 12:00 107 I/O 12/08/17 12/08/17 12/08/17 12/09/17 12/09/17 12/09/17 07:00 15:00 23:00 07:00 15:00 23:00 Intake Total 707 ml 480 ml 100 ml 700 ml Balance 707 ml 480 ml 100 ml 700 ml Intake Oral 550 ml 480 ml 600 ml IV Total 157 ml 100 ml 100 ml # Voids 1 4 2 5 # Bowel Movements 1 2 Physical Exam GENERAL: Well developed, well nourished. No acute distress. HEENT: Jugular venous pressure is 8 cm water. CHEST: Minimal right basilar crackles. CARDIAC: Irregular rate and rhythm without S3, S4. I-II/ systolic murmur lower left sternal border. ABDOMEN: Soft, nontender, no hepatosplenomegaly. Bowel sounds present. EXTREMITIES: No clubbing, cyanosis, or edema. Laboratory Laboratory Tests Test 12/08/17 14:55 12/09/17 07:36 Urine Color YELLOW Urine Turbidity CLEAR Urine pH 5.0 Urine Specific [place] 1.007 Urine Protein NEG mg/dL Urine Glucose (UA) NEG mg/dL Urine Ketones NEG mg/dL Urine Occult Blood NEG Urine Nitrite NEG Urine Bilirubin NEG Urine Urobilinogen LESS THAN 2.0 MG/DL Urine Leukocyte Esterase NEG Urine RBC 1 /hpf Urine WBC LESS THAN 1 /hpf Urine Squamous Epithelial Cells <1 /hpf Urine Mucus FEW /lpf Microscopic Urinalysis Comment CULT NOT INDICATED White Blood Count 21.1 TH/MM3 Red Blood Count 3.20 MIL/MM3 Hemoglobin 10.3 GM/DL Hematocrit 30.4 % Mean Corpuscular Volume 95.1 FL Mean Corpuscular Hemoglobin 32.2 PG Mean Corpuscular Hemoglobin Concent 33.9 % Red Cell Distribution Width 17.8 % Platelet Count 150 TH/MM3 Mean Platelet Volume 10.1 FL CBC Comment AUTO DIFF Prothrombin Time 21.5 SEC Prothromb Time International Ratio 2.1 RATIO Assessment and Plan Problem List: (1) Congestive heart failure (CHF) ICD Codes: I50.9 - Heart failure, unspecified Status: Acute Plan: Symptomatically much better though doesn't appear to have diuresed much. Weight unchanged. EF 50% by echo. CHF possibly in part precipitated by anemia. Rec continue beta cee, ARB, IV Lasix diuresis. Will f/u as needed. (2) Chronic atrial fibrillation ICD Codes: I48.2 - Chronic atrial fibrillation Status: Chronic Plan: Chronic stable atrial fibrillation. INR therapeutic. No HR control issues. (3) Pulmonary hypertension ICD Codes: I27.20 - Pulmonary hypertension, unspecified Status: Chronic Plan: Severely elevated systolic pulmonary pressure measurements on good quality echo. Rec pulmonary consultation, consider sildenafil. Code Status full code Discussed Condition With patient Problem Qualifiers (1) Congestive heart failure (CHF): Qualified Codes: I50.9 - Heart failure, unspecified Nomi Lee MD Dec 09, 2017 11:32
[2017-12-09 11:53] LABS: BANDS 6 % (0-6); LYMPHOCYTES 11 % (9-44); METAMYELOCYTES 3 % (0-1); MONOCYTES 19 % (0-8); MYELOCYTES 2 % (0-0); NEUTROPHIL # MANUAL DIFF 14.8 TH/MM3 (1.8-7.7); POLYS (SEG NEUTROPHILS) 59 % (16-70)
--- NOTE | 2017-12-09 12:40 | HHI.PR ---
Subjective Remarks Denies cp/sob Afebrile BP fluctuating low today in the 90's systolic. Objective Vitals Vital Signs Date Time Temp Pulse Resp B/P (MAP) Pulse Ox O2 Delivery O2 Flow Rate FiO2 12/09/17 08:00 Nasal Cannula 2.00 12/09/17 08:00 100 12/09/17 08:00 98.6 77 20 91/50 (64) 98 12/09/17 04:00 97.8 94 19 152/85 (107) 98 12/09/17 03:56 99 12/09/17 00:12 98.9 92 18 162/94 (116) 93 12/08/17 23:52 98 12/08/17 21:50 Nasal Cannula 2.00 12/08/17 20:00 98.1 106 20 165/99 (121) 96 12/08/17 19:59 103 12/08/17 16:31 85 12/08/17 16:00 98.3 110 20 162/54 (90) 97 I/O 12/08/17 12/08/17 12/08/17 12/09/17 12/09/17 12/09/17 06:59 14:59 22:59 06:59 14:59 22:59 Intake Total 707 ml 480 ml 100 ml 700 ml Balance 707 ml 480 ml 100 ml 700 ml Intake Oral 550 ml 480 ml 600 ml IV Total 157 ml 100 ml 100 ml # Voids 1 4 2 5 # Bowel Movements 1 2 Result Diagram: 12/09/17 0736 12/09/17 0736 Imaging Last Impressions Liver Ultrasound 12/07/17 0000 Signed Impressions: Service Date/Time: Thursday, December 07, 2017 09:51 - CONCLUSION: 1. Numerous gallstones with sludge but without biliary ductal dilatation or gallbladder wall thickening. No free fluid. Jovanni Meeks MD Abdomen/Pelvis CT 12/06/17 1712 Signed Impressions: Service Date/Time: November 18:09 - CONCLUSION: 1. Air in the urinary bladder including some in the right wall of the bladder. This is nonspecific but the differential would include emphysematous cystitis but this is considered somewhat unlikely as I don't see significant wall thickening or high-grade inflammatory changes. A colovesical fistula would also be in the differential. Diverticulosis without definite diverticulitis seen of the adjacent sigmoid colon. Finally, as there is age indeterminate but potentially acute left inferior pubic ramus fracture, the air in the bladder could be posttraumatic. If so, only a small amount of urine has leaked. 2. Suspected venous congestion of the liver. Otherwise, solid organs are within normal limits. Evan Jimenez MD CT Angiography 12/06/17 1702 Signed Impressions: Service Date/Time: November 18:09 - CONCLUSION: 1. No pulmonary embolus. 2. Small to moderate bilateral pleural effusions. 3. Mild dependent/compressive atelectasis of both bases. 4. Mild biatrial enlargement of the heart. 5. Coronary artery calcification. 6. Nonspecific mediastinal lymphadenopathy. Evan Jimenez MD Head CT 12/06/17 1512 Signed Impressions: Service Date/Time: November 15:46 - CONCLUSION: 1. Mild periventricular white matter small vessel ischemic changes bilaterally. 2. Mild cerebral atrophy. 3. 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 4. No acute infarct, acute hemorrhage , midline shift or extra-axial fluid collections. Storm Garrett MD Chest X-Ray 12/06/172 Signed Impressions: Service Date/Time: November 15:31 - CONCLUSION: Bibasilar patchiness consistent with atelectasis and/or infiltrates. Storm Garrett MD Objective Remarks Awake and alert and oriented 3. Acute distress. Breathing is nonlabored. S1-S2 Irregular rate or rythm Abdomen is soft, nt, nd no edema in lower extremities Procedures None Medications and IVs Current Medications Medications (Trade) Dose Ordered Sig/Angeline Route Start Time Stop Time Status Last Admin (NS Flush) 2 ml UNSCH PRN IV FLUSH 12/06/17 17:30 (NS Flush) 2 ml BID IV FLUSH 12/06/17 21:00 12/09/17 08:40 (Tylenol) 650 mg Q4H PRN PO 12/06/17 17:30 (Narcan Inj) 0.4 mg UNSCH PRN IV PUSH 12/06/17 17:30 (Milk Of Magnesia Liq) 30 ml Q12H PRN PO 12/06/17 17:30 (Senokot) 17.2 mg Q12H PRN PO 12/06/17 17:30 (Lactulose Liq) 30 ml DAILY PRN PO 12/06/17 17:30 (Protonix) 20 mg DAILY PO 12/07/17 09:00 12/09/17 08:39 (Premarin) 0.3 mg DAILY PO 12/07/17 09:00 Future Hold 12/07/17 09:00 (Diovan) 320 mg DAILY PO 12/07/17 09:00 12/09/17 08:39 (Coumadin) 2.5 mg DAILY@1600 PO 12/08/17 16:00 12/08/17 17:37 Pharmacy Profile Note 0 ml @ 0 mls/hr UNSCH OTHER 12/06/17 17:45 Aztreonam 1000 mg/ Sodium Chloride 100 ml @ 200 mls/hr Q8H IV 12/06/17 20:00 12/09/17 12:11 (Cardizem) 30 mg Q6HR PRN PO 12/06/17 18:00 12/06/17 20:45 (Toprol Xl) 100 mg DAILY PO 12/07/17 09:00 12/09/17 08:39 (Microzide) 12.5 mg DAILY PO 12/07/17 09:00 12/09/17 08:40 (Cardizem Cd) 180 mg DAILY PO 12/09/17 09:00 12/09/17 08:39 (Catapres) 0.1 mg Q6H PRN PO 12/08/17 11:30 (Lasix Inj) 40 mg BID@0900,1800 IV PUSH 12/09/17 18:00 A/P Problem List: (1) Exertional dyspnea ICD Code: R06.09 - Other forms of dyspnea Plan: CTA negative for PE. Small to moderate bilateral pleural effusions. Mild dependent/compressive atelectasis at both bases. Mild biatrial enlargement of the heart. Likely multifactorial etiology from atrial fibrillation with RVR, symptomatic anemia and acute diastolic heart failure. Echocardiogram shows EF of 50%, no definite regional wall motion abnormality, left atrial size is moderately dilated, right atrial size is mild to moderately dilated, moderate mitral annular calcification present, moderate mitral valve regurgitation, trileaflet aortic valve but no stenosis or regurgitation. Moderate to severe tricuspid regurgitation. Pulmonary hypertension. Continue supplemental oxygen to keep oxygen saturation more than 92%. (2) Atrial fibrillation with RVR ICD Code: I48.91 - Unspecified atrial fibrillation Plan: Patient presented with heart rate between 80 and 150 bpm. Continue home medications. On Coumadin with therapeutic INR. 3/18 Heart rate controlled. (3) Symptomatic anemia ICD Code: D64.9 - Anemia, unspecified Status: Acute Plan: Patient has history of chronic anemia however as per patient report last hemoglobin was 11. Status post transfusion of 2 units of packed red blood cells with appropriate hemoglobin response from 7.9-10.2. Iron studies consistent with hemochromatosis with increased iron, low TIBC, increased percent saturation of iron, elevated ferritin. Check stool for Hemoccult blood --> ordered and pending. 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 Continue to monitor PT and INR daily. Continue Coumadin. Dose as per Pharmacy recommendations (5) Transaminitis ICD Code: R74.0 - Nonspecific elevation of levels of transaminase and lactic acid dehydrogenase [LDH] Plan: Liver ultrasound shows numerous gallstones with sludge but without biliary ductal dilatation or gallbladder wall thickening. 3 AST and ALT are trending down. ALT on admission was 378, down to 125. AST is also trending down from 455 down to 53. Continue to monitor liver function tests. (6) Hypertension ICD Code: I10 - Essential (primary) hypertension Plan: Currently on Valsartan, HCTZ, Metoprolol Succinate and Diltiazem. 12/09 BP low today at 91/50, cut Valsartan dose to 160 mg po daily, DC HCTZ. Monitor vital signs. (7) Leukocytosis ICD Code: D72.829 - Elevated white blood cell count, unspecified Status: Acute Plan: with bands of 12%. Check urinalysis. WBCs trending down, continue to monitor. Currently on IV Aztreonam - unclear what infections is being treated. 3/ UA negative. WBC trended up to 21K. However, patient is a febrile and denies diarrhea or other signs of infection. Continue to monitor CBC with differential. (8) Abnormal CT scan, bladder ICD Code: R93.41 - Abnormal radiologic findings on diagnostic imaging of renal pelvis, ureter, or bladder Plan: CT of the abdomen and pelvis describes air in the urinary bladder. Differential diagnosis includes for similar cystitis or colovesicular fistula. 12/09 appreciate urology recommendations. Urinalysis negative. UTI ruled out. Continue to monitor CBC with differential. (9) Pulmonary hypertension ICD Code: I27.20 - Pulmonary hypertension, unspecified Status: Chronic Plan: As seen on echocardiogram described above. Cardiology consulted. Continue diuresis. Await pulmonary recommendations. Pulmonology consult ordered on 12/07. (10) Acute diastolic heart failure ICD Code: I50.31 - Acute diastolic (congestive) heart failure Status: Acute Plan: BL pleural effusions on CTA Pulm htn echo w ef 50 % Continur furosemide - Dose increased as oer cardiology to 40 mg IV BID (11) Hypokalemia ICD Code: E87.6 - Hypokalemia Status: Acute Plan: Likely due to potassium excretion with furosemide use. We will replace IV and orally, continue to monitor BMP and replace as needed. Assessment and Plan DVT prophylaxis: on coumadin Discharge Planning pending urology consult and clinical improvement. Problem Qualifiers (1) Hypertension: Qualified Codes: I10 - Essential (primary) hypertension (2) Leukocytosis: Qualified Codes: D72.825 - Bandemia Darryl Gil MD Dec 09, 2017 12:40
[2017-12-09] MEDS ORDERED: POTASSIUM CHLORIDE 10 MEQ CONTROLLED RELEASE TAB PO ONE (12:45)
[2017-12-09] MEDS: MAGNESIUM SULFATE 1 GM PREMIX 100 ML IV SCH ×2 (13:24→14:25)
[2017-12-09] MEDS: POTASSIUM PHOSPHATE/SODIUM PHOSPHATE 250 MG TAB PO SCH ×2 (14:24→21:03)
--- NOTE | 2017-12-09 15:01 | MB ---
cc: German Frye MD DATE OF CONSULT: REASON FOR CONSULTATION: Pulmonary hypertension. HISTORY OF PRESENT ILLNESS: The patient is an 82-year-old female who is known to have history of hypertension, atrial fibrillation, hemochromatosis on chronic anticoagulation, came with shortness of breath mainly with exertion. She was evaluated by cardiology and was found to have atrial fibrillation with RVR. The patient does have evidence of congestive heart failure. Her pulmonary pressure was 75. The patient reported she is not having any chest pain. She does not have lower extremity edema. She is not having any hemoptysis. PAST MEDICAL HISTORY: Reviewed in detail. Positive as mentioned in the HPI. PAST SURGICAL HISTORY: Reviewed. MEDICATIONS: Reviewed in detail. Of note, she is on warfarin and Premarin. She is also on metoprolol and Cartia. REVIEW OF SYSTEMS: Negative except for as mentioned in the HPI. PHYSICAL EXAMINATION: VITAL SIGNS: Shows temperature 98.5, pulse 92, respiration rate 20, blood pressure 156/82. She is sating 95% on 2 liters nasal cannula. HEENT: Head: Atraumatic, normocephalic. NECK: Trachea midline. LUNGS: Clear. HEART: S1, S2. ABDOMEN: Soft, nondistended. EXTREMITIES: No significant edema. NEUROLOGIC: Alert and oriented x 3, no focal deficits. DATA: I reviewed her echocardiogram that did show the pulmonary pressures of 75. Her is 50%. I reviewed her CT angiogram that did not show any pulmonary embolism. ASSESSMENT AND PLAN: 1. Pulmonary hypertension. At this point, I think it is mainly World Health Organization Class II secondary to cardiac disease; however, I cannot rule out any other contributory causes. I would recommend right heart catheterization to check her wedge pressure and depending on the results of the right heart catheterization we can decide on the next step. I would like her to be optimized from a cardiac perspective. Of note, all this workup can be done as an outpatient and it is an outpatient workup. If she does indeed have pulmonary hypertension whether it is WHO Class I or III or IV we may need to refer her to a pulmonary hypertension clinic. However, at this point she is okay to go home from my perspective. I would like to assess her oxygen requirements with exertion to see whether she needs oxygen or not. I will followup with her in the office. I discussed this case with the hospitalist, Dr. Londono. I will sign off at this point. MD VICKY Rao/JAKI , 01:49 PM , 03:00 PM
[2017-12-09] MEDS: POTASSIUM CHLOR 20 MEQ PREMIX 100 ML IV SCH ×2 (15:20→19:39)
[2017-12-09] MEDS: FUROSEMIDE 40 MG/4 ML VIAL IV PUSH SCH ×2 (16:51→16:53)
[2017-12-09] MEDS: WARFARIN SOD 2.5 MG TAB PO SCH (16:51)
[2017-12-10] VITALS (14 sets, daily range): BP systolic 124–156; BP diastolic 68–89; PULSE 75–112; RESP 18; TEMP 98.1–99.6; O2SAT 93–99
[2017-12-10] MEDS: AZTREONAM INJ 1,000 MG in SODIUM CHLORIDE 0.9% INJ 100 ML IV SCH ×3 (04:13→21:05)
[2017-12-10] MEDS: POTASSIUM PHOSPHATE/SODIUM PHOSPHATE 250 MG TAB PO SCH ×3 (06:19→21:06)
[2017-12-10] MEDS: SODIUM CHLORIDE 0.9% FLUSH 10 ML FLUSH IV FLUSH SCH ×2 (08:44→21:05)
[2017-12-10] MEDS: PANTOPRAZOLE SOD 20 MG DELAYED RELEASE TAB PO SCH (08:44)
[2017-12-10] MEDS: DILTIAZEM-CD 120 MG CAP ER PO SCH (08:45)
[2017-12-10] MEDS: VALSARTAN 160 MG TAB PO SCH (08:45)
[2017-12-10] MEDS: FUROSEMIDE 40 MG/4 ML VIAL IV PUSH SCH ×2 (08:46→17:47)
[2017-12-10] MEDS: METOPROLOL SUCCINATE 50 MG EXTENDED RELEASE TAB PO SCH (08:46)
[2017-12-10 10:35] LABS: AUTOMATED NEUTROPHIL # 17.8 TH/MM3 (1.8-7.7); BASOPHIL # 0.2 TH/MM3 (0-0.2); BASOPHIL % 0.6 % (0.0-2.0); EOSINOPHIL # 0.5 TH/MM3 (0-0.4); EOSINOPHIL % 1.7 % (0.0-4.0); HEMATOCRIT 31.4 % (35.0-46.0); HEMOGLOBIN 10.5 GM/DL (11.6-15.3); LYMPH % 8.7 % (9.0-44.0); LYMPHOCYTE # 2.3 TH/MM3 (1.0-4.8); MEAN CELL VOLUME 95.5 FL (80.0-100.0); MEAN CORPUSCULAR HGB CONC 33.5 % (32.0-36.0); MEAN PLATELET VOLUME 10.6 FL (7.0-11.0); MONO % 22.2 % (0.0-8.0); MONOCYTE # 5.9 TH/MM3 (0-0.9); NEUT % 66.8 % (16.0-70.0); PLATELET COUNT 153 TH/MM3 (150-450); RED BLOOD COUNT 3.28 MIL/MM3 (4.00-5.30); RED CELL DISTRIBUTION WIDTH 18.2 % (11.6-17.2); WHITE BLOOD COUNT 26.7 TH/MM3 (4.0-11.0)
[2017-12-10 10:46] LABS: ALBUMIN 2.6 GM/DL (3.4-5.0); ALT (GPT) 96 U/L (10-53); AST (GOT) 35 U/L (15-37); BICARBONATE 27.8 MEQ/L (21.0-32.0); BLOOD UREA NITROGEN 15 MG/DL (7-18); CALCIUM 7.9 MG/DL (8.5-10.1); CHLORIDE 100 MEQ/L (98-107); CREATININE 0.69 MG/DL (0.50-1.00); GLOMERULAR FILTRATION RATE 82 ML/MIN (>89); GLUCOSE,RANDOM 150 MG/DL (74-106); SODIUM (NA) 135 MEQ/L (136-145)
[2017-12-10 10:48] LABS: ALKALINE PHOSPHATASE 181 U/L (45-117); TOTAL PROTEIN 7.2 GM/DL (6.4-8.2)
[2017-12-10 10:54] LABS: BANDS 6 % (0-6); LYMPHOCYTES 13 % (9-44); METAMYELOCYTES 1 % (0-1); MONOCYTES 18 % (0-8); MYELOCYTES 3 % (0-0); NEUTROPHIL # MANUAL DIFF 18.4 TH/MM3 (1.8-7.7); POLYS (SEG NEUTROPHILS) 59 % (16-70)
--- NOTE | 2017-12-10 11:11 | HHI.FF ---
Face to Face Verification Diagnosis: (1) Congestive heart failure (CHF) (2) Chronic atrial fibrillation (3) Pulmonary hypertension (4) Acute diastolic heart failure (5) Abnormal CT scan, bladder (6) Atrial fibrillation with RVR Physical Therapy Order: Improve ambulation Home Health Nursing Order: Medication education-adverse effect Nursing assessment with vital signs I have seen patient Dayana Ralph on 12/10/17. My clinical findings support the need for the requested home health care services because: Patient has SOB High risk of falls I certify that my clinical findings support that this patient is homebound because: Unsteady gait/balance Need for psychosocial assistance Darryl Gil MD Dec 10, 2017 11:11
[2017-12-10 12:46] LABS: INTERNATIONAL NORMALIZED RATIO 1.8 RATIO; PROTHROMBIN TIME - PATIENT 18.4 SEC (9.8-11.6)
--- NOTE | 2017-12-10 13:31 | HHI.PR ---
Subjective Remarks Patient states feels better. Denies cp/sob Denies cough Denies diarrhea Denies abdominal pain, nausea or vomiting. Afebrile Objective Vitals Vital Signs Date Time Temp Pulse Resp B/P (MAP) Pulse Ox O2 Delivery O2 Flow Rate FiO2 12/10/17 08:04 98.3 94 18 141/89 (106) 98 12/10/17 04:16 98.1 102 18 136/74 (94) 98 12/10/17 04:04 83 12/10/17 04:00 Nasal Cannula 2.00 12/10/17 00:33 81 12/10/17 00:00 Nasal Cannula 2.00 12/10/17 00:00 99.3 75 18 124/68 (86) 95 12/09/17 21:05 Nasal Cannula 2.00 12/09/17 20:27 81 12/09/17 20:00 99.1 90 18 142/80 (100) 96 12/09/17 18:32 Nasal Cannula 2.00 12/09/17 17:55 90 12/09/17 16:00 98.6 78 20 144/67 (92) 98 I/O 12/09/17 12/09/17 12/09/17 12/10/17 12/10/17 12/10/17 07:00 15:00 23:00 07:00 15:00 23:00 Intake Total 700 ml 480 ml 200 ml 580 ml Output Total 1000 ml Balance 700 ml 480 ml 200 ml -420 ml Intake Oral 600 ml 480 ml 480 ml IV Total 100 ml 200 ml 100 ml Output Urine Total 1000 ml # Voids 5 3 # Bowel Movements 1 Result Diagram: 12/10/17 1015 12/10/17 1015 Imaging Last Impressions Liver Ultrasound 12/07/17 0000 Signed Impressions: Service Date/Time: Thursday, December 07, 2017 09:51 - CONCLUSION: 1. Numerous gallstones with sludge but without biliary ductal dilatation or gallbladder wall thickening. No free fluid. Jovanni Meeks MD Abdomen/Pelvis CT 12/06/17 1712 Signed Impressions: Service Date/Time: November 18:09 - CONCLUSION: 1. Air in the urinary bladder including some in the right wall of the bladder. This is nonspecific but the differential would include emphysematous cystitis but this is considered somewhat unlikely as I don't see significant wall thickening or high-grade inflammatory changes. A colovesical fistula would also be in the differential. Diverticulosis without definite diverticulitis seen of the adjacent sigmoid colon. Finally, as there is age indeterminate but potentially acute left inferior pubic ramus fracture, the air in the bladder could be posttraumatic. If so, only a small amount of urine has leaked. 2. Suspected venous congestion of the liver. Otherwise, solid organs are within normal limits. Evan Jimenez MD CT Angiography 12/06/17 1702 Signed Impressions: Service Date/Time: November 18:09 - CONCLUSION: 1. No pulmonary embolus. 2. Small to moderate bilateral pleural effusions. 3. Mild dependent/compressive atelectasis of both bases. 4. Mild biatrial enlargement of the heart. 5. Coronary artery calcification. 6. Nonspecific mediastinal lymphadenopathy. Evan Jimenez MD Head CT 12/06/17 1512 Signed Impressions: Service Date/Time: November 15:46 - CONCLUSION: 1. Mild periventricular white matter small vessel ischemic changes bilaterally. 2. Mild cerebral atrophy. 3. 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 4. No acute infarct, acute hemorrhage , midline shift or extra-axial fluid collections. Storm Garrett MD Chest X-Ray 12/06/17 1512 Signed Impressions: Service Date/Time: November 15:31 - CONCLUSION: Bibasilar patchiness consistent with atelectasis and/or infiltrates. Storm Garrett MD Objective Remarks Awake and alert and oriented 3. Acute distress. Breathing is nonlabored. S1-S2 Irregular rate or rythm Abdomen is soft, nt, nd no edema in lower extremities Procedures None Medications and IVs Current Medications Medications (Trade) Dose Ordered Sig/Angeline Route Start Time Stop Time Status Last Admin (NS Flush) 2 ml UNSCH PRN IV FLUSH 12/06/17 17:30 (NS Flush) 2 ml BID IV FLUSH 12/06/17 21:00 12/10/17 08:44 (Tylenol) 650 mg Q4H PRN PO 12/06/17 17:30 (Narcan Inj) 0.4 mg UNSCH PRN IV PUSH 12/06/17 17:30 (Milk Of Magnesia Liq) 30 ml Q12H PRN PO 12/06/17 17:30 (Senokot) 17.2 mg Q12H PRN PO 12/06/17 17:30 (Lactulose Liq) 30 ml DAILY PRN PO 12/06/17 17:30 (Protonix) 20 mg DAILY PO 12/07/17 09:00 12/10/17 08:44 (Premarin) 0.3 mg DAILY PO 12/07/17 09:00 Future Hold 12/07/17 09:00 (Coumadin) 2.5 mg DAILY@1600 PO 12/08/17 16:00 12/09/17 16:51 Pharmacy Profile Note 0 ml @ 0 mls/hr UNSCH OTHER 12/06/17 17:45 Aztreonam 1000 mg/ Sodium Chloride 100 ml @ 200 mls/hr Q8H IV 12/06/17 20:00 12/10/17 12:33 (Cardizem) 30 mg Q6HR PRN PO 12/06/17 18:00 12/06/17 20:45 (Toprol Xl) 100 mg DAILY PO 12/07/17 09:00 12/10/17 08:46 (Catapres) 0.1 mg Q6H PRN PO 12/08/17 11:30 (Lasix Inj) 40 mg BID@0900,1800 IV PUSH 12/09/17 18:00 (Cardizem Cd) 120 mg DAILY PO 12/10/17 09:00 12/10/17 08:45 (Diovan) 160 mg DAILY PO 12/10/17 09:00 12/10/17 08:45 (K-Phos Neutral) 250 mg Q8HR PO 12/09/17 14:00 12/10/17 06:19 A/P Problem List: (1) Exertional dyspnea ICD Code: R06.09 - Other forms of dyspnea Plan: CTA negative for PE. Small to moderate bilateral pleural effusions. Mild dependent/compressive atelectasis at both bases. Mild biatrial enlargement of the heart. Likely multifactorial etiology from atrial fibrillation with RVR, symptomatic anemia and acute diastolic heart failure. Echocardiogram shows EF of 50%, no definite regional wall motion abnormality, left atrial size is moderately dilated, right atrial size is mild to moderately dilated, moderate mitral annular calcification present, moderate mitral valve regurgitation, trileaflet aortic valve but no stenosis or regurgitation. Moderate to severe tricuspid regurgitation. Pulmonary hypertension. Continue supplemental oxygen to keep oxygen saturation more than 92%. (2) Atrial fibrillation with RVR ICD Code: I48.91 - Unspecified atrial fibrillation Plan: Patient presented with heart rate between 80 and 150 bpm. Continue home medications. On Coumadin with therapeutic INR. 12/09 Heart rate controlled. (3) Symptomatic anemia ICD Code: D64.9 - Anemia, unspecified Status: Acute Plan: Patient has history of chronic anemia however as per patient report last hemoglobin was 11. Status post transfusion of 2 units of packed red blood cells with appropriate hemoglobin response from 7.9-10.2. Iron studies consistent with hemochromatosis with increased iron, low TIBC, increased percent saturation of iron, elevated ferritin. Check stool for Hemoccult blood --> ordered and pending. 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 Continue to monitor PT and INR daily. Continue Coumadin. Dose as per Pharmacy recommendations (5) Transaminitis ICD Code: R74.0 - Nonspecific elevation of levels of transaminase and lactic acid dehydrogenase [LDH] Plan: Liver ultrasound shows numerous gallstones with sludge but without biliary ductal dilatation or gallbladder wall thickening. 12/09 AST and ALT are trending down. ALT on admission was 378, down to 125. AST is also trending down from 455 down to 53. Continue to monitor liver function tests. 12/10 Transaminases continue to improve. Hepatitis profile negative. (6) Hypertension ICD Code: I10 - Essential (primary) hypertension Plan: Currently on Valsartan, HCTZ, Metoprolol Succinate and Diltiazem. 12/09 BP low today at 91/50, cut Valsartan dose to 160 mg po daily, DC HCTZ. Monitor vital signs. 12/10 BP improved. Monitor BP. (7) Leukocytosis ICD Code: D72.829 - Elevated white blood cell count, unspecified Status: Acute Plan: with bands of 12%. Check urinalysis. WBCs trending down, continue to monitor. Currently on IV Aztreonam - unclear what infections is being treated. 12/09 UA negative. WBC trended up to 21K. However, patient is a febrile and denies diarrhea or other signs of infection. Continue to monitor CBC with differential. 12/10 WBC continues to trend up now 20 6K. However there are no signs of infection is still. The patient denies diarrhea, UA negative. Leukocytosis with predominance of monocytes and some teardrop cells observed on the smear. I will consult hematology for further recommendations. (8) Abnormal CT scan, bladder ICD Code: R93.41 - Abnormal radiologic findings on diagnostic imaging of renal pelvis, ureter, or bladder Plan: CT of the abdomen and pelvis describes air in the urinary bladder. Differential diagnosis includes for similar cystitis or colovesicular fistula. 12/09 appreciate urology recommendations. Urinalysis negative. UTI ruled out. Continue to monitor CBC with differential. (9) Pulmonary hypertension ICD Code: I27.20 - Pulmonary hypertension, unspecified Status: Chronic Plan: As seen on echocardiogram described above. Cardiology consulted. Continue diuresis. 12/10 appreciate pulmonary assistance. Discussed the case with Dr. Frye. He recommends a right heart catheterization to check the patient's wedge pressure and depending on the results the next step could be decided. (10) Acute diastolic heart failure ICD Code: I50.31 - Acute diastolic (congestive) heart failure Status: Acute Plan: BL pleural effusions on CTA Pulm htn echo w ef 50 % Continur furosemide - Dose increased as per cardiology to 40 mg IV BID (11) Hypokalemia ICD Code: E87.6 - Hypokalemia Status: Acute Plan: Likely due to potassium excretion with furosemide use. We will replace IV and orally, continue to monitor BMP and replace as needed. 12/10 hypokalemia resolved. Monitor BMP and replace as needed. Assessment and Plan DVT prophylaxis: on coumadin Discharge Planning pending urology consult and clinical improvement. Problem Qualifiers (1) Hypertension: Qualified Codes: I10 - Essential (primary) hypertension (2) Leukocytosis: Qualified Codes: D72.825 - Bandemia Darryl Gil MD Dec 10, 2017 13:31
[2017-12-10] MEDS ORDERED: WARFARIN SOD 1 MG TAB PO ONE (16:00)
[2017-12-10] MEDS: WARFARIN SOD 2.5 MG TAB PO SCH (17:04)
[2017-12-11] VITALS (9 sets, daily range): BP systolic 121–158; BP diastolic 70–79; PULSE 88–109; RESP 18–20; TEMP 98.8–99.8; O2SAT 95–98
[2017-12-11] MEDS: AZTREONAM INJ 1,000 MG in SODIUM CHLORIDE 0.9% INJ 100 ML IV SCH ×3 (03:17→20:46)
[2017-12-11] MEDS: POTASSIUM PHOSPHATE/SODIUM PHOSPHATE 250 MG TAB PO SCH ×3 (05:29→20:46)
--- NOTE | 2017-12-11 08:03 | MB ---
cc: Tai Dixon MD DATE OF CONSULT: 12/10/2017 REASON FOR CONSULTATION: Consult requested by Hospitalist for evaluation of leukocytosis and anemia. HISTORY OF PRESENT ILLNESS: This is an 82-year-old, very pleasant white female. She stated when she was in [place] last September, 2 months ago, she saw a telecommunications manager for hemochromatosis. She recalled that she was told that her white cells were high. She was advised to have further workup, but she deferred this. She stated that she was coming to [place] and she would have that done here. REVIEW OF SYSTEMS: The patient came into the emergency room for extreme weakness, tiredness and fatigue. She was lightheaded. In the ER, the patient was evaluated. She was found to have severe anemia and she was admitted to the hospital. She has received blood transfusion. The rest of the review of systems is negative. PAST MEDICAL HISTORY: Hypertension, hemochromatosis, atrial fibrillation. PAST SURGICAL HISTORY: Hip replacement, total hysterectomy, left lower leg vein stripping. MEDICATIONS: 1. Warfarin. 2. Valsartan. 3. Premarin. 4. Omeprazole. 5. Metoprolol. 6. Cartia. ALLERGIES: PENICILLIN. SULFA. CIPRO. FAMILY HISTORY: Noncontributory. SOCIAL HISTORY: The patient does not smoke cigarettes, does not drink alcohol. PHYSICAL EXAMINATION: GENERAL: A well-developed, well-nourished white female. VITAL SIGNS: Temperature 99.6, heart rate 99, blood pressure 156/84, O2 saturation 93 percent. HEAD, EYES, EARS, NOSE, AND THROAT: Pupils equal, round, reactive to light and accommodation, extraocular movements intact. Anicteric. No oral lesions noted. No thrush noted. NECK: Supple. No JVD. No masses noted. LUNGS: Decreased breath sounds on both sides. HEART: Regular rate and rhythm. No murmur heard. ABDOMEN: Soft and nontender. No hepatosplenomegaly. No abnormal bowel sounds. No guarding or rigidity noted. EXTREMITIES: No pedal edema. No cyanosis, no clubbing. NEUROLOGIC: Awake, alert, oriented x 3. Sensory and motor seem to be intact. SKIN: No bruises or petechiae noted. LYMPH NODES: No cervical, supraclavicular, or axillary lymphadenopathy noted. BACK: There is no spinal tenderness noted. ASSESSMENT: 1. Leukocytosis with a left shift. This is probably due to myeloproliferative disorder or reactive process. 2. Elevated serum ferritin level either due to hemochromatosis or due to liver injury. PLAN: I have reviewed her available records and I have discussed with the patient regarding the persistent leukocytosis. She said that she was told 2 months ago when she was in [place] that her white count has been running high. She did not have any workup done in the past. When she came into the hospital on 12/06/2017, white count was 19.1, hemoglobin 7.9, MCV 100.2, platelet count was 201. She had received 2 units of blood transfusion and her hemoglobin has improved to 10.5. Her white count has gone up from 19.1 to 26.7. The differential count shows neutrophilia, monocytosis, basophilia. She also has myelocytes and metamyelocytes. I suspect that she has myeloproliferative disorder. However, reactive leukocytosis cannot be ruled out at this time. My recommendation is to check the BCR-ABL by FISH, JAK2 mutation, sedimentation rate and C-reactive protein. We will also get hemochromatosis gene analysis for hemochromatosis. Further recommendations once we have the results of the above test. Thank you for asking my opinion. MD DONYA Morales/SHAE , 10:20 PM , 08:01 AM VINAYAK
[2017-12-11] MEDS: SODIUM CHLORIDE 0.9% FLUSH 10 ML FLUSH IV FLUSH SCH ×2 (08:37→20:47)
[2017-12-11] MEDS: METOPROLOL SUCCINATE 50 MG EXTENDED RELEASE TAB PO SCH (08:37)
[2017-12-11] MEDS: FUROSEMIDE 40 MG/4 ML VIAL IV PUSH SCH ×2 (08:38→18:00)
[2017-12-11] MEDS: PANTOPRAZOLE SOD 20 MG DELAYED RELEASE TAB PO SCH (08:38)
[2017-12-11] MEDS: DILTIAZEM-CD 120 MG CAP ER PO SCH (08:38)
[2017-12-11] MEDS: VALSARTAN 160 MG TAB PO SCH (08:38)
[2017-12-11 10:03] LABS: INTERNATIONAL NORMALIZED RATIO 1.7 RATIO; PROTHROMBIN TIME - PATIENT 17.5 SEC (9.8-11.6)
[2017-12-11] MEDS ORDERED: OXYGENDME NAS.CANULA (11:08)
--- NOTE | 2017-12-11 12:47 | PD.ONC.PN ---
Subjective Subjective Remarks Tmax 99.8 overnight. Patient resting in bed. No complaints. Objective Data Date Time Temp Pulse Resp B/P (MAP) Pulse Ox O2 Delivery O2 Flow Rate FiO2 12/11/17 12:00 99.7 97 20 158/77 (104) 95 12/11/17 08:00 98 12/11/17 08:00 99.8 97 20 126/79 (95) 95 12/11/17 07:33 Nasal Cannula 2.00 12/11/17 03:41 91 12/11/17 03:15 Nasal Cannula 2.00 12/11/17 03:15 99.4 107 20 148/70 (96) 95 12/11/17 00:00 99.2 108 18 130/76 (94) 98 12/10/17 23:40 109 12/10/17 21:03 Nasal Cannula 2.00 12/10/17 20:00 99.6 99 18 156/84 (108) 93 12/10/17 19:55 Nasal Cannula 2.00 12/10/17 19:42 112 12/10/17 16:04 98.1 91 18 124/69 (87) 99 12/10/17 16:00 89 12/10/17 16:00 Nasal Cannula 2.00 12/10/17 13:23 96 Nasal Cannula 2.00 12/10/17 13:23 2.00 12/11/17 12/11/17 12/11/17 07:00 15:00 23:00 Intake Total 120 ml Output Total 200 ml Balance -80 ml Result Diagram: 12/10/17 1015 12/10/17 1015 Laboratory Results Laboratory Tests Test 12/11/17 06:02 12/11/17 09:06 Erythrocyte Sedimentation Rate 21 mm/hr C-Reactive Protein 4.40 MG/DL Prothrombin Time 17.5 SEC Prothromb Time International Ratio 1.7 RATIO Administered Medications Medications (Trade) Dose Ordered Sig/Angeline Route PRN Reason Start Time Stop Time Status Last Admin Dose Admin Sodium Chloride (NS Flush) 2 ml BID IV FLUSH 12/06/17 21:00 12/11/17 08:37 Pantoprazole Sodium (Protonix) 20 mg DAILY PO 12/07/17 09:00 12/11/17 08:38 Estrogens Conjugated (Premarin) 0.3 mg DAILY PO 12/07/17 09:00 Future Hold 12/07/17 09:00 Warfarin Sodium (Coumadin) 2.5 mg DAILY@1600 PO 12/08/17 16:00 12/10/17 17:04 Aztreonam 1000 mg/ Sodium Chloride 100 ml @ 200 mls/hr Q8H IV 12/06/17 20:00 12/11/17 12:32 Diltiazem HCl (Cardizem) 30 mg Q6HR PRN PO HR>100 12/06/17 18:00 12/06/17 20:45 Metoprolol Succinate (Toprol Xl) 100 mg DAILY PO 12/07/17 09:00 12/11/17 08:37 Diltiazem HCl (Cardizem Cd) 120 mg DAILY PO 12/10/17 09:00 12/11/17 08:38 Valsartan (Diovan) 160 mg DAILY PO 12/10/17 09:00 12/11/17 08:38 Potassium Phos/ Sodium Phos (K-Phos Neutral) 250 mg Q8HR PO 12/09/17 14:00 12/11/17 05:29 Objective Remarks GENERAL: Elderly female, sitting up in bed in [facility]. SKIN: Warm and dry. HEAD: Normocephalic. EYES: No injection or drainage. NECK: Supple, trachea midline. CARDIOVASCULAR: Regular rate and rhythm RESPIRATORY: Breath sounds equal bilaterally. No accessory muscle use. GASTROINTESTINAL: Abdomen soft, non-tender, nondistended. EXTREMITIES: No cyanosis NEUROLOGICAL: awake and alert. normal speech. moving all extremities. Assessment/Plan Problem List: (1) Leukocytosis ICD Codes: D72.829 - Elevated white blood cell count, unspecified Status: Acute Plan: 12/11: ESR within normal limits, however CRP elevated, consistent with inflammation; will await BCR-ABL/JAK2 mutation. face sheet faxed to new patient referrals for follow up upon discharge. --Leukocytosis with a left shift. --differential includes myeloproliferative disorder vs reactive process. (2) Symptomatic anemia ICD Codes: D64.9 - Anemia, unspecified Status: Acute Plan: --s/p 2 units pRBC (3) elevated serum ferritin Plan: --due to hemochromatosis or due to liver injury. Assessment 82y/o female admitted with weakness, fatigue. Hematology consulted for evaluation of leukocytosis and anemia. h/o Hypertension, hemochromatosis, atrial fibrillation. Attending Statement The exam, history, and the medical decision-making described in the above note were completed with the assistance of the mid-level provider. I reviewed and agree with the findings presented. I attest that I had a [id number] encounter with the patient on the same day, and personally performed and documented my assessment and findings in the medical record. No new c/o feels better. BRANDON-2 and BCR are pending HFE is pending. D/W admitting doctor. OK to d/c . FU as outpt. Problem Qualifiers (1) Leukocytosis: Qualified Codes: D72.825 - Bandemia Sarai Bowles Dec 11, 2017 12:47 Arben Dixon MD Dec 11, 2017 16:11
[2017-12-11 13:30] LABS: HEMOGLOBIN 9.9 GM/DL (11.6-15.3); MEAN CELL VOLUME 95.5 FL (80.0-100.0); MEAN CORPUSCULAR HEMOGLOBIN 31.5 PG (27.0-34.0); MEAN PLATELET VOLUME 10.4 FL (7.0-11.0); PLATELET COUNT 167 TH/MM3 (150-450); RED BLOOD COUNT 3.14 MIL/MM3 (4.00-5.30); RED CELL DISTRIBUTION WIDTH 17.8 % (11.6-17.2)
[2017-12-11 14:08] LABS: BANDS 6 % (0-6); LYMPHOCYTES 15 % (9-44); MONOCYTES 14 % (0-8); MYELOCYTES 3 % (0-0); POLYS (SEG NEUTROPHILS) 61 % (16-70)
--- NOTE | 2017-12-11 15:26 | HHI.DS ---
Discharge Summary Admission Date Dec 06, 2017 at 17:07 Discharge Date: Dec 11, 2017 Admitting Diagnosis Symptomatic anemia/ syncope /leukocytosis (1) Exertional dyspnea ICD Code: R06.09 - Other forms of dyspnea Diagnosis: Principal (2) Atrial fibrillation with RVR ICD Code: I48.91 - Unspecified atrial fibrillation (3) Symptomatic anemia ICD Code: D64.9 - Anemia, unspecified Status: Acute (4) Chronic anticoagulation ICD Code: Z79.01 - senior care (current) use of anticoagulants (5) Transaminitis ICD Code: R74.0 - Nonspecific elevation of levels of transaminase and lactic acid dehydrogenase [LDH] (6) Hypertension ICD Code: I10 - Essential (primary) hypertension (7) Leukocytosis ICD Code: D72.829 - Elevated white blood cell count, unspecified Status: Acute (8) Abnormal CT scan, bladder ICD Code: R93.41 - Abnormal radiologic findings on diagnostic imaging of renal pelvis, ureter, or bladder (9) Pulmonary hypertension ICD Code: I27.20 - Pulmonary hypertension, unspecified Status: Chronic (10) Acute diastolic heart failure ICD Code: I50.31 - Acute diastolic (congestive) heart failure Status: Acute (11) Hypokalemia ICD Code: E87.6 - Hypokalemia Status: Acute Procedures None Brief History - From Admission This is an 82-year-old female with past medical history of hypertension, atrial fibrillation, hemochromatosis, on chronic Coumadin who presented with exertional dyspnea. Patient stated that about 3 weeks ago she had a virus in which she had GI symptoms such as nausea vomiting. She stated that resolved she started feeling better but a few days ago symptoms recur. She denies any abdominal pain. Denies any urinary symptoms. Patient then stated that she felt very fatigued and with exertion she felt very short of breath. Patient stated that she never had these symptoms before. She denies any chest pain, palpitation, lightheadedness dizziness. Patient stated that symptoms were significant enough for her to come to emergency department. She denies any GI bleed. 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 Denies any fevers or chills. Denies any cough. All other review of system reviewed and negative. During my interview with patient heart rate was above 100 during the majority of the interview and went up to 150. Patient stated that she took her morning medication today. CBC/BMP: 12/11/17 1210 12/10/17 1015 Significant Findings Laboratory Tests Test 12/09/17 07:36 12/10/17 10:15 12/10/17 12:13 12/11/17 06:02 White Blood Count 21.1 TH/MM3 (4.0-11.0) 26.7 TH/MM3 (4.0-11.0) Red Blood Count 3.20 MIL/MM3 (4.00-5.30) 3.28 MIL/MM3 (4.00-5.30) Hemoglobin 10.3 GM/DL (11.6-15.3) 10.5 GM/DL (11.6-15.3) Hematocrit 30.4 % (35.0-46.0) 31.4 % (35.0-46.0) Red Cell Distribution Width 17.8 % (11.6-17.2) 18.2 % (11.6-17.2) Monocytes % 19 % (0-8) 18 % (0-8) Neutrophils # (Manual) 14.8 TH/MM3 (1.8-7.7) 18.4 TH/MM3 (1.8-7.7) Metamyelocytes 3 % (0-1) Myelocytes 2 % (0-0) 3 % (0-0) Platelet Morphology Comment ENLARGED (NORMAL) ENLARGED (NORMAL) Prothrombin Time 21.5 SEC (9.8-11.6) 18.4 SEC (9.8-11.6) Albumin 2.7 GM/DL (3.4-5.0) 2.6 GM/DL (3.4-5.0) Calcium Level 8.1 MG/DL (8.5-10.1) 7.9 MG/DL (8.5-10.1) Phosphorus Level 1.7 MG/DL (2.5-4.9) Alkaline Phosphatase 172 U/L (45-117) 181 U/L (45-117) Aspartate Amino Transf (AST/SGOT) 53 U/L (15-37) Alanine Aminotransferase (ALT/SGPT) 125 U/L (10-53) 96 U/L (10-53) Total Bilirubin 3.0 MG/DL (0.2-1.0) 2.0 MG/DL (0.2-1.0) Potassium Level 2.9 MEQ/L (3.5-5.1) Lymphocytes (%) (Auto) 8.7 % (9.0-44.0) Monocytes (%) (Auto) 22.2 % (0.0-8.0) Neutrophils # (Auto) 17.8 TH/MM3 (1.8-7.7) Monocytes # (Auto) 5.9 TH/MM3 (0-0.9) Eosinophils # (Auto) 0.5 TH/MM3 (0-0.4) Platelet Estimate LOW (NORMAL) Random Glucose 150 MG/DL (74-106) Sodium Level 135 MEQ/L (136-145) Estimat Glomerular Filtration Rate 82 ML/MIN (>89) C-Reactive Protein 4.40 MG/DL (0.00-0.30) Test 12/11/17 09:06 12/11/17 12:10 Prothrombin Time 17.5 SEC (9.8-11.6) White Blood Count 30.0 TH/MM3 (4.0-11.0) Red Blood Count 3.14 MIL/MM3 (4.00-5.30) Hemoglobin 9.9 GM/DL (11.6-15.3) Hematocrit 30.0 % (35.0-46.0) Red Cell Distribution Width 17.8 % (11.6-17.2) Monocytes % 14 % (0-8) Neutrophils # (Manual) 21.0 TH/MM3 (1.8-7.7) Myelocytes 3 % (0-0) Platelet Morphology Comment ENLARGED (NORMAL) Imaging Last Impressions Liver Ultrasound 12/07/17 0000 Signed Impressions: Service Date/Time: Thursday, December 07, 2017 09:51 - CONCLUSION: 1. Numerous gallstones with sludge but without biliary ductal dilatation or gallbladder wall thickening. No free fluid. Jovanni Meeks MD Abdomen/Pelvis CT 12/06/17 1712 Signed Impressions: Service Date/Time: November 18:09 - CONCLUSION: 1. Air in the urinary bladder including some in the right wall of the bladder. This is nonspecific but the differential would include emphysematous cystitis but this is considered somewhat unlikely as I don't see significant wall thickening or high-grade inflammatory changes. A colovesical fistula would also be in the differential. Diverticulosis without definite diverticulitis seen of the adjacent sigmoid colon. Finally, as there is age indeterminate but potentially acute left inferior pubic ramus fracture, the air in the bladder could be posttraumatic. If so, only a small amount of urine has leaked. 2. Suspected venous congestion of the liver. Otherwise, solid organs are within normal limits. Evan Jimenez MD CT Angiography 12/06/17 1702 Signed Impressions: Service Date/Time: November 18:09 - CONCLUSION: 1. No pulmonary embolus. 2. Small to moderate bilateral pleural effusions. 3. Mild dependent/compressive atelectasis of both bases. 4. Mild biatrial enlargement of the heart. 5. Coronary artery calcification. 6. Nonspecific mediastinal lymphadenopathy. Evan Jimenez MD Head CT 12/06/17 1512 Signed Impressions: Service Date/Time: November 15:46 - CONCLUSION: 1. Mild periventricular white matter small vessel ischemic changes bilaterally. 2. Mild cerebral atrophy. 3. 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 4. No acute infarct, acute hemorrhage , midline shift or extra-axial fluid collections. Storm Garrett MD Chest X-Ray 12/06/17 1512 Signed Impressions: Service Date/Time: November 15:31 - CONCLUSION: Bibasilar patchiness consistent with atelectasis and/or infiltrates. Storm Garrett MD PE at Discharge Awake and alert and oriented 3. Acute distress. Breathing is nonlabored. S1-S2 Irregular rate or rythm Abdomen is soft, nt, nd no edema in lower extremities Pt update on day of discharge The patient denies chest pain or shortness of breath. Denies fevers or chills. No dysuria, denies diarrhea, cough. WBC seems to be trending up. Pt Condition on Discharge: Stable Discharge Disposition: Disch w/ Home Health Serv Discharge Time: > 30 minutes Discharge Instructions DIET: Follow Instructions for: As Tolerated, No Restrictions Activities you can perform: Regular-No Restrictions Activities to Avoid: Strenuous Activity Follow up Referrals: Cardiology - 2 Weeks with Nomi Lee MD Oncology/Hematology - 2 Weeks with Arben Dixon MD PCP Follow-up - 2 Weeks Pulmonology - 2 Weeks New Medications: Oxygen (O2) (Oxygen (O2)) Device LITER FRANCI.CANULA CONTINUOUS for Prevent Hypoxemia, #2 Oxygen Concentrator Portable Gaseous 2 L/min via Nasal Canula Continuous For 99 months Continued Medications: Diltiazem ER 24 HR (Cartia Xt) 120 Mg Caper 120 MG PO DAILY, #30 CAP 0 Refills Estrogens, Conjugated (Premarin) 0.3 Mg Tab 0.3 MG PO DAILY for Estrogen Supplements, #30 TAB 0 Refills Metoprolol Succinate/HCTZ 100-12.5 ER (Metoprolol Succinate/HCTZ 100-12.5 ER) 100 Mg-12.5 Mg Tab 1 TAB PO DAILY, #30 TAB 0 Refills Omeprazole (Omeprazole) 20 Mg Tab 20 MG PO DAILY, #30 TAB 0 Refills Valsartan (Valsartan) 320 Mg Tab 320 MG PO DAILY, #30 TAB 0 Refills Warfarin (Warfarin) 2.5 Mg Tab 2.5 MG PO DAILY for Blood Clot Prevention, #30 TAB 0 Refills Darryl Gil MD Dec 11, 2017 15:26
[2017-12-11] MEDS ORDERED: WARFARIN SOD 1 MG TAB PO ONE (16:00)
[2017-12-11] MEDS: WARFARIN SOD 2.5 MG TAB PO SCH (16:23)
[2017-12-12] VITALS: BP 134/65; PULSE 96; RESP 20; TEMP 99; O2SAT 93
[2017-12-12 03:48] VITALS: PULSE 112
[2017-12-12 04:03] VITALS: BP 155/98; PULSE 103; RESP 20; TEMP 98.4; O2SAT 97
[2017-12-12] MEDS: AZTREONAM INJ 1,000 MG in SODIUM CHLORIDE 0.9% INJ 100 ML IV SCH ×2 (04:05→12:53)
[2017-12-12] MEDS: POTASSIUM PHOSPHATE/SODIUM PHOSPHATE 250 MG TAB PO SCH ×2 (04:53→12:53)
[2017-12-12 07:04] LABS: INTERNATIONAL NORMALIZED RATIO 1.7 RATIO; PROTHROMBIN TIME - PATIENT 17.6 SEC (9.8-11.6)
[2017-12-12 08:03] VITALS: BP 155/76; PULSE 96; RESP 19; TEMP 99.1; O2SAT 99
[2017-12-12] MEDS: FUROSEMIDE 40 MG/4 ML VIAL IV PUSH SCH (09:00)
[2017-12-12] MEDS: METOPROLOL SUCCINATE 50 MG EXTENDED RELEASE TAB PO SCH (09:20)
[2017-12-12] MEDS: VALSARTAN 160 MG TAB PO SCH (09:20)
[2017-12-12] MEDS: PANTOPRAZOLE SOD 20 MG DELAYED RELEASE TAB PO SCH (09:20)
[2017-12-12] MEDS: DILTIAZEM-CD 120 MG CAP ER PO SCH (09:21)
[2017-12-12] MEDS: SODIUM CHLORIDE 0.9% FLUSH 10 ML FLUSH IV FLUSH SCH (09:21)
[2017-12-12 12:03] VITALS: BP 130/73; PULSE 102; RESP 19; TEMP 99; O2SAT 97
--- NOTE | 2017-12-12 12:56 | PD.ONC.PN ---
Subjective Subjective Remarks Afebrile overnight. patient resting in room with at bedside. she has no complaints. she wants to know when she is going home. denies pain at present. Objective Data Date Time Temp Pulse Resp B/P (MAP) Pulse Ox O2 Delivery O2 Flow Rate FiO2 12/12/17 09:15 Nasal Cannula 2.00 12/12/17 08:03 99.1 96 19 155/76 (102) 99 12/12/17 04:03 98.4 103 20 155/98 (117) 97 12/12/17 04:03 Nasal Cannula 2.00 12/12/17 03:48 112 12/12/17 00:00 Nasal Cannula 2.00 12/12/17 00:00 99.0 96 20 134/65 (88) 93 12/11/17 23:56 103 12/11/17 20:00 99.3 109 20 121/75 (90) 95 12/11/17 20:00 Nasal Cannula 2.00 12/11/17 19:42 103 12/11/17 16:04 Nasal Cannula 2.00 12/11/17 16:00 103 12/11/17 16:00 98.8 88 20 138/79 (98) 95 Result Diagram: 12/11/17 1210 12/10/17 1015 Laboratory Results Laboratory Tests Test 12/12/17 06:03 Prothrombin Time 17.6 SEC Prothromb Time International Ratio 1.7 RATIO Administered Medications Medications (Trade) Dose Ordered Sig/Angeline Route PRN Reason Start Time Stop Time Status Last Admin Dose Admin Sodium Chloride (NS Flush) 2 ml BID IV FLUSH 12/06/17 21:00 12/12/17 09:21 Pantoprazole Sodium (Protonix) 20 mg DAILY PO 12/07/17 09:00 12/12/17 09:20 Estrogens Conjugated (Premarin) 0.3 mg DAILY PO 12/07/17 09:00 Future Hold 12/07/17 09:00 Warfarin Sodium (Coumadin) 2.5 mg DAILY@1600 PO 12/08/17 16:00 12/11/17 16:23 Aztreonam 1000 mg/ Sodium Chloride 100 ml @ 200 mls/hr Q8H IV 12/06/17 20:00 12/12/17 04:05 Diltiazem HCl (Cardizem) 30 mg Q6HR PRN PO HR>100 3/15/18 18:00 12/06/17 20:45 Metoprolol Succinate (Toprol Xl) 100 mg DAILY PO 12/07/17 09:00 12/12/17 09:20 Diltiazem HCl (Cardizem Cd) 120 mg DAILY PO 12/10/17 09:00 12/12/17 09:21 Valsartan (Diovan) 160 mg DAILY PO 12/10/17 09:00 12/12/17 09:20 Potassium Phos/ Sodium Phos (K-Phos Neutral) 250 mg Q8HR PO 12/09/17 14:00 12/12/17 04:53 Objective Remarks GENERAL: This is a pleasant elderly female, sitting up in bed with at bedside. she appears relaxed and comfortable. SKIN: Warm and dry. HEAD: Normocephalic. EYES: No injection or drainage. NECK: Supple, trachea midline. CARDIOVASCULAR: Regular rate and rhythm RESPIRATORY: Breath sounds equal bilaterally. No accessory muscle use. GASTROINTESTINAL: Abdomen soft, non-tender, nondistended. EXTREMITIES: No cyanosis NEUROLOGICAL: awake, alert. normal speech. Assessment/Plan Problem List: (1) Leukocytosis ICD Codes: D72.829 - Elevated white blood cell count, unspecified Status: Acute Plan: 12/12: WBC remains elevated, discussed with patient and waiting on lab results. patient clear for discharge from oncology perspective. she will need to come to clinic to review the results. fs has been faxed to new patient referrals. oncology will sign off. --Leukocytosis with a left shift. --differential includes myeloproliferative disorder vs reactive process. (2) Symptomatic anemia ICD Codes: D64.9 - Anemia, unspecified Status: Acute Plan: --s/p 2 units pRBC (3) elevated serum ferritin Plan: --due to hemochromatosis or due to liver injury. Assessment 82y/o female admitted with weakness, fatigue. Hematology consulted for evaluation of leukocytosis and anemia. h/o Hypertension, hemochromatosis, atrial fibrillation. Attending Statement The exam, history, and the medical decision-making described in the above note were completed with the assistance of the mid-level provider. I reviewed and agree with the findings presented. I attest that I had a [id number] encounter with the patient on the same day, and personally performed and documented my assessment and findings in the medical record. NO new c/o feels better. Tj- 2/ BCR-Abl / HFE are still pending Ok to d/c FU as outpt. sign off Problem Qualifiers (1) Leukocytosis: Qualified Codes: D72.825 - Bandemia Sarai Bowles Dec 12, 2017 12:56 Arben Dixon MD Dec 12, 2017 16:06
[2017-12-12] MEDS ORDERED: WARFARIN SOD 1 MG TAB PO ONE (16:00)
[2017-12-12 16:03] VITALS: BP 140/72; PULSE 98; RESP 19; TEMP 98.9; O2SAT 98
[2017-12-12] MEDS ORDERED: FURO40TA PO (16:46)
--- NOTE | 2017-12-12 16:46 | HHI.PR ---
Subjective Remarks The patient denies chest pain or shortness of breath. Denies fevers or chills. Objective Vitals Vital Signs Date Time Temp Pulse Resp B/P (MAP) Pulse Ox O2 Delivery O2 Flow Rate FiO2 12/12/17 12:03 99.0 102 19 130/73 (92) 97 12/12/17 09:15 Nasal Cannula 2.00 12/12/17 08:03 99.1 96 19 155/76 (102) 99 12/12/17 04:03 98.4 103 20 155/98 (117) 97 12/12/17 04:03 Nasal Cannula 2.00 12/12/17 03:48 112 12/12/17 00:00 Nasal Cannula 2.00 12/12/17 00:00 99.0 96 20 134/65 (88) 93 12/11/17 23:56 103 12/11/17 20:00 99.3 109 20 121/75 (90) 95 12/11/17 20:00 Nasal Cannula 2.00 12/11/17 19:42 103 I/O 12/11/17 12/11/17 12/11/17 12/12/17 12/12/17 12/12/17 07:00 15:00 23:00 07:00 15:00 23:00 Intake Total 120 ml 580 ml Output Total 200 ml Balance -80 ml 580 ml Intake Oral 120 ml 480 ml IV Total 100 ml Output Urine Total 200 ml # Voids 6 3 # Bowel Movements 0 3 Result Diagram: 12/11/17 1210 12/10/17 1015 Objective Remarks Awake and alert and oriented 3. Acute distress. Breathing is nonlabored. S1-S2 Irregular rate or rythm Abdomen is soft, nt, nd no edema in lower extremities Procedures None A/P Problem List: (1) Exertional dyspnea ICD Code: R06.09 - Other forms of dyspnea Plan: CTA negative for PE. Small to moderate bilateral pleural effusions. Mild dependent/compressive atelectasis at both bases. Mild biatrial enlargement of the heart. Likely multifactorial etiology from atrial fibrillation with RVR, symptomatic anemia and acute diastolic heart failure. Echocardiogram shows EF of 50%, no definite regional wall motion abnormality, left atrial size is moderately dilated, right atrial size is mild to moderately dilated, moderate mitral annular calcification present, moderate mitral valve regurgitation, trileaflet aortic valve but no stenosis or regurgitation. Moderate to severe tricuspid regurgitation. Pulmonary hypertension. Continue supplemental oxygen to keep oxygen saturation more than 92%. (2) Atrial fibrillation with RVR ICD Code: I48.91 - Unspecified atrial fibrillation Plan: Patient presented with heart rate between 80 and 150 bpm. Continue home medications. On Coumadin with therapeutic INR. 12/09 Heart rate controlled. (3) Symptomatic anemia ICD Code: D64.9 - Anemia, unspecified Status: Acute Plan: Patient has history of chronic anemia however as per patient report last hemoglobin was 11. Status post transfusion of 2 units of packed red blood cells with appropriate hemoglobin response from 7.9-10.2. Iron studies consistent with hemochromatosis with increased iron, low TIBC, increased percent saturation of iron, elevated ferritin. Check stool for Hemoccult blood --> ordered and pending. (4) Chronic anticoagulation ICD Code: Z79.01 - intermediate accountant (current) use of anticoagulants Plan: INR therapeutic. Continue to monitor PT and INR daily. Continue Coumadin. Dose as per Pharmacy recommendations (5) Transaminitis ICD Code: R74.0 - Nonspecific elevation of levels of transaminase and lactic acid dehydrogenase [LDH] Plan: Liver ultrasound shows numerous gallstones with sludge but without biliary ductal dilatation or gallbladder wall thickening. 12/09 AST and ALT are trending down. ALT on admission was 378, down to 125. AST is also trending down from 455 down to 53. Continue to monitor liver function tests. 12/10 Transaminases continue to improve. Hepatitis profile negative. (6) Hypertension ICD Code: I10 - Essential (primary) hypertension Plan: Currently on Valsartan, HCTZ, Metoprolol Succinate and Diltiazem. 12/09 BP low today at 91/50, cut Valsartan dose to 160 mg po daily, DC HCTZ. Monitor vital signs. 12/10 BP improved. Monitor BP. (7) Leukocytosis ICD Code: D72.829 - Elevated white blood cell count, unspecified Status: Acute Plan: with bands of 12%. Check urinalysis. WBCs trending down, continue to monitor. Currently on IV Aztreonam - unclear what infections is being treated. 12/09 UA negative. WBC trended up to 21K. However, patient is a febrile and denies diarrhea or other signs of infection. Continue to monitor CBC with differential. 12/10 WBC continues to trend up now 20 6K. However there are no signs of infection is still. The patient denies diarrhea, UA negative. Leukocytosis with predominance of monocytes and some teardrop cells observed on the smear. I will consult hematology for further recommendations. 12/12` WBC trending up at 30 K on 12/11. Discussed the case with Dr. Dixon for hematology. The patient possibly has a myeloproliferative disorder. Follow -up as outpatient with hematology. The case was discussed with Dr. Varma. (8) Abnormal CT scan, bladder ICD Code: R93.41 - Abnormal radiologic findings on diagnostic imaging of renal pelvis, ureter, or bladder Plan: CT of the abdomen and pelvis describes air in the urinary bladder. Differential diagnosis includes for similar cystitis or colovesicular fistula. 12/09 appreciate urology recommendations. Urinalysis negative. UTI ruled out. Continue to monitor CBC with differential. (9) Pulmonary hypertension ICD Code: I27.20 - Pulmonary hypertension, unspecified Status: Chronic Plan: As seen on echocardiogram described above. Cardiology consulted. Continue diuresis. 12/10 appreciate pulmonary assistance. Discussed the case with Dr. Frye. He recommends a right heart catheterization to check the patient's wedge pressure and depending on the results the next step could be decided. Follow-up with pulmonology and cardiology as an outpatient. (10) Acute diastolic heart failure ICD Code: I50.31 - Acute diastolic (congestive) heart failure Status: Acute Plan: BL pleural effusions on CTA Pulm htn echo w ef 50 % Continur furosemide - Dose increased as per cardiology to 40 mg IV BID DC IV furosemide, start oral furosemide. (11) Hypokalemia ICD Code: E87.6 - Hypokalemia Status: Acute Plan: Likely due to potassium excretion with furosemide use. We will replace IV and orally, continue to monitor BMP and replace as needed. 12/10 hypokalemia resolved. Monitor BMP and replace as needed. Assessment and Plan DVT prophylaxis: on coumadin Discharge Planning Discharge home with home O2 when arrangements made. Problem Qualifiers (1) Hypertension: Qualified Codes: I10 - Essential (primary) hypertension (2) Leukocytosis: Qualified Codes: D72.825 - Bandemia Darryl Gil MD Dec 12, 2017 16:46
[2017-12-12] MEDS: WARFARIN SOD 2.5 MG TAB PO SCH (16:57)
[2017-12-12] MEDS ORDERED: FUROSEMIDE 40 MG TAB PO SCH (18:00)
[2017-12-20 07:20] LABS: HEREDITARY HEMOCHROM SPECIMEN WB Whole Blood
== END 2017-12-12 17:30 | disposition home health service (06) | DRG 840 ==
LOC: NEPE 14:34 → NEDA 17:07 → HCIS 19:18 → N04A 12-07 15:30
PROVIDERS: ADMIT Hospitalist; ATTEND Hospitalist
PROC: 30233N1 Transfusion of Nonautologous Red Blood Cells into Peripheral Vein, Percutaneous Approach (ICD-10-PCS; principal; 2017-12-06)
DX: C94.6 Myelodysplastic disease, not elsewhere classified (principal); I50.31 Acute diastolic (congestive) heart failure; I27.20 Pulmonary hypertension, unspecified; I48.2 Chronic atrial fibrillation; I08.1 Rheumatic disorders of both mitral and tricuspid valves; J98.11 Atelectasis; D64.9 Anemia, unspecified; E83.119 Hemochromatosis, unspecified; I11.0 Hypertensive heart disease with heart failure; R74.8 Abnormal levels of other serum enzymes; K57.30 Diverticulosis of large intestine without perforation or abscess without bleeding; K80.20 Calculus of gallbladder without cholecystitis without obstruction; E87.6 Hypokalemia; Z79.01 Long term (current) use of anticoagulants; Z80.6 Family history of leukemia; Z80.7 Family history of other malignant neoplasms of lymphoid, hematopoietic and related tissues; Z88.0 Allergy status to penicillin; Z88.1 Allergy status to other antibiotic agents; Z88.2 Allergy status to sulfonamides; Z96.649 Presence of unspecified artificial hip joint
CPT/HCPCS: 36430; 70450; 71045; 71275; 74177; 76705; 80053; 80061; 80074; 81001; 81256; 82550; 82607; 82728; 82746; 83036; 83540; 83550; 83735; 83880; 84100; 84425; 84439; 84443; 84484; 85007; 85027; 85379; 85610; 85652; 85730; 86140; 86850; 86900; 86901; 86920; 88377; 93005; 93306; 94618; J1940; J3475; J3480; J7040; J7050; P9016; Q9967

== ENCOUNTER 2017-12-31 03:27 | Inpatient (IN) | payer MEDICARE ==
[~2017-12-31] VITALS: Ht 160 cm; Wt 65.0 kg
[2017-12-31] VITALS (14 sets, daily range): BP systolic 121–175; BP diastolic 60–95; PULSE 69–115; RESP 12–22; TEMP 97.1–98.7; O2SAT 94–100
[~2017-12-31 03:27] MED LIST: CART120C PO; ESTR.3 PO; FURO40TA PO; METO-489 PO; OMEP20TA93 PO; OXYGENDME NAS.CANULA; VALS1TAB70 PO; WARF-18 PO
[2017-12-31] MEDS ORDERED: WARF4TAB52 PO (03:41)
[2017-12-31] MEDS ORDERED: ONDANSETRON HCL 4 MG/2 ML VIAL IV PUSH ONE (03:45)
[2017-12-31] MEDS ORDERED: SODIUM CHLORIDE 0.9% FLUSH 10 ML FLUSH IVF PRN (03:45)
[2017-12-31 04:05] LABS: AUTOMATED NEUTROPHIL # 14.4 TH/MM3 (1.8-7.7); BASOPHIL # 0.5 TH/MM3 (0-0.2); EOSINOPHIL # 0.3 TH/MM3 (0-0.4); EOSINOPHIL % 1.5 % (0.0-4.0); LYMPH % 10.1 % (9.0-44.0); LYMPHOCYTE # 2.3 TH/MM3 (1.0-4.8); MEAN CELL VOLUME 98.5 FL (80.0-100.0); MEAN CORPUSCULAR HEMOGLOBIN 32.4 PG (27.0-34.0); MEAN CORPUSCULAR HGB CONC 32.9 % (32.0-36.0); MEAN PLATELET VOLUME 10.9 FL (7.0-11.0); MONO % 22.6 % (0.0-8.0); MONOCYTE # 5.1 TH/MM3 (0-0.9); NEUT % 63.8 % (16.0-70.0); PLATELET COUNT 149 TH/MM3 (150-450); RED BLOOD COUNT 1.91 MIL/MM3 (4.00-5.30); RED CELL DISTRIBUTION WIDTH 20.1 % (11.6-17.2); WHITE BLOOD COUNT 22.6 TH/MM3 (4.0-11.0)
[2017-12-31 04:09] LABS: HEMOGLOBIN 6.2 GM/DL (11.6-15.3)
[2017-12-31 04:12] LABS: HEMATOCRIT 18.9 % (35.0-46.0)
[2017-12-31 04:24] LABS: ALBUMIN 2.8 GM/DL (3.4-5.0); ALT (GPT) 116 U/L (10-53); AST (GOT) 184 U/L (15-37); BICARBONATE 19.8 MEQ/L (21.0-32.0); BLOOD UREA NITROGEN 18 MG/DL (7-18); CALCIUM 7.9 MG/DL (8.5-10.1); CHLORIDE 103 MEQ/L (98-107); DIRECT BILIRUBIN ADULT 3.9 MG/DL (0.0-0.2); GLOMERULAR FILTRATION RATE 69 ML/MIN (>89); GLUCOSE,RANDOM 139 MG/DL (74-106); SODIUM (NA) 138 MEQ/L (136-145)
--- NOTE | 2017-12-31 04:25 | RADRPT ---
EXAM DATE/TIME: 12/31/2017 03:58 [facility] COMPARISON: CHEST SINGLE AP, December 06, 2017, 15:31. INDICATIONS : Short of breath. MEDICAL HISTORY : None. SURGICAL HISTORY : None. ENCOUNTER: Initial ACUITY: 1 day PAIN SCORE: 0/10 LOCATION: Bilateral chest FINDINGS: A single view of the chest demonstrates bibasilar airspace disease. Heart normal in size. The cardio mediastinal contours are unremarkable. Osseous structures are intact. CONCLUSION: Bibasilar opacities. Maycol Daniel MD on December 31, 2017 at 4:23 Board Certified Radiologist. This report was verified electronically.
[2017-12-31 04:26] LABS: INTERNATIONAL NORMALIZED RATIO 3.2 RATIO; PROTHROMBIN TIME - PATIENT 32.2 SEC (9.8-11.6)
[2017-12-31 04:28] LABS: ALKALINE PHOSPHATASE 295 U/L (45-117); INDIRECT BILIRUBIN 1.9 MG/DL (0.0-0.8); TOTAL BILIRUBIN ADULT 5.8 MG/DL (0.2-1.0); TOTAL PROTEIN 7.4 GM/DL (6.4-8.2); TROPONIN I LESS THAN 0.02 NG/ML (0.02-0.05)
[2017-12-31] MEDS ORDERED: AZITHROMYCIN INJ 500 MG in SODIUM CHLOR 0.9% 250 ML INJ 250 ML IV ONE (04:45)
[2017-12-31] MEDS ORDERED: CEFEPIME INJ 1,000 MG in SODIUM CHLORIDE 0.9% INJ 100 ML IV ONE (04:45)
[2017-12-31] MEDS ORDERED: SODIUM CHLOR 0.9% 250 ML INJ 250 ML IV ONE (04:45)
--- NOTE | 2017-12-31 04:57 | PD ---
HPI Chief Complaint: Respiratory Symptoms Time Seen by Provider: 03:37 Travel History International Travel<30 days: No Contact w/Intl Traveler<30days: No Traveled to known affect area: No History of Present Illness HPI Patient is an 82-year-old female who comes in complaining of shortness of breath. She was admitted to the hospital for similar symptoms about 3 weeks ago. She says she has never really felt better. She denies any chest pain. She says that exertion makes the difficulty breathing worse. She denies any leg swelling, nausea or vomiting. She denies fever or chills. Severity is mild to moderate. PFSH Past Medical History Hx Anticoagulant Therapy: Yes (warfarin) Arthritis: Yes Atrial Fibrillation: Yes Anxiety: No Depression: No Cancer: No Cardiovascular Problems: Yes (CHF) Endocrine: No Genitourinary: No Hypertension: Yes Immune Disorder: No Neurologic: No Psychiatric: No Reproductive: No Respiratory: Yes (sob) Tetanus Vaccination: Unknown Influenza Vaccination: No ?: Not Menopausal: Yes Past Surgical History Hysterectomy: Yes Other Surgery: Yes (VARICOSE VEIN SX) Social History Alcohol Use: Yes (WINE OCCASIONALLY) Tobacco Use: No Substance Use: No Allergies-Medications (Allergen,Severity, Reaction): Coded Allergies: Penicillins (Verified Allergy, Severe, vomiting, 12/06/17) Sulfa (Sulfonamide Antibiotics) (Verified Allergy, Severe, vomiting, ) ciprofloxacin (Verified Allergy, Severe, vomiting, 12/06/17) Reported Meds & Prescriptions Reported Meds & Active Scripts Active Oxygen (O2) Device Liter FRANCI.CANULA CONTINUOUS Oxygen Concentrator Portable Gaseous 2 L/min via Nasal Canula Continuous For 99 months Reported Warfarin 1 Mg Tab 1.25 Mg PO SUNDAY Warfarin 2.5 Mg Tab 2.5 Mg PO DAILY Valsartan 320 Mg Tab 320 Mg PO DAILY Premarin (Estrogens Conjugated) 0.3 Mg Tab 0.3 Mg PO DAILY Omeprazole 20 Mg Tab 20 Mg PO DAILY Metoprolol Succinate/HCTZ 100-12.5 ER 100 Mg-12.5 Mg Tab 1 Tab PO DAILY Cartia Xt (Diltiazem ER 24 HR) 120 Mg Caper 120 Mg PO DAILY Review of Systems Except as stated in HPI: all other systems reviewed are Neg General / Constitutional: No: Fever, Chills HENT: No: Headaches, Lightheadedness Cardiovascular: No: Chest Pain or Discomfort Respiratory: Positive: Shortness of Breath Gastrointestinal: No: Nausea, Vomiting Neurologic: Positive: Weakness Physical Exam Narrative GENERAL: Awake and alert, in no acute distress. SKIN: Jaundice of the face. HEAD: Atraumatic. Normocephalic. EYES: Pupils equal and round. Scleral icterus present. No injection or drainage. ENT: Mucous membranes pink and moist. NECK: Trachea midline. No JVD. CARDIOVASCULAR: Regular rate and rhythm. No murmur appreciated. RESPIRATORY: No accessory muscle use. Clear to auscultation. Breath sounds equal bilaterally. GASTROINTESTINAL: Abdomen soft, non-tender, nondistended. MUSCULOSKELETAL: No obvious deformities. No clubbing. No cyanosis. No edema. NEUROLOGICAL: Awake and alert. No obvious cranial nerve deficits. Motor grossly within normal limits. Normal speech. PSYCHIATRIC: Appropriate mood and affect; insight and judgment normal. Data Data Last Documented VS Vital Signs Date Time Temp Pulse Resp B/P (MAP) Pulse Ox O2 Delivery O2 Flow Rate FiO2 12/31/17 03:35 96 Nasal Cannula 2.00 12/31/17 03:31 97.9 85 16 153/72 (99) Orders Orders Complete Blood Count With Diff (12/31/17 03:41) Basic Metabolic Panel (Bmp) (12/31/17 03:41) B-Type Natriuretic Peptide (12/31/17 03:41) Act Partial Throm Time (Ptt) (12/31/17 03:41) Prothrombin Time / Inr (Pt) (12/31/17 03:41) Troponin I (12/31/17 03:41) Urinalysis - C+S If Indicated (12/31/17 03:41) Iv Access Insert/Monitor (12/31/17 03:41) Ecg Monitoring (12/31/17 03:41) Oximetry (12/31/17 03:41) Oxygen Administration (12/31/17 03:41) Chest, Single Ap (12/31/17 03:41) Sodium Chloride 0.9% Flush (Ns Flush) (12/31/17 03:45) Hepatic Functional Panel (12/31/17 03:41) Lipase (12/31/17 03:41) Ondansetron Inj (Zofran Inj) (12/31/17 03:45) Cefepime Inj (Maxipime Inj) (12/31/17 04:45) Azithromycin Inj (Zithromax Inj) (12/31/17 04:45) Red Blood Cells (Rbc) (12/31/17 04:35) Blood Product Administration (12/31/17 04:35) Sodium Chlor 0.9% 250 Ml Inj (Ns 250 Ml (12/31/17 04:45) Type And Screen (12/31/17 04:35) Admit Order (Ed Use Only) (12/31/17 ) Labs Laboratory Tests Test 12/31/17 03:45 White Blood Count 22.6 TH/MM3 Red Blood Count 1.91 MIL/MM3 Hemoglobin 6.2 GM/DL Hematocrit 18.9 % Mean Corpuscular Volume 98.5 FL Mean Corpuscular Hemoglobin 32.4 PG Mean Corpuscular Hemoglobin Concent 32.9 % Red Cell Distribution Width 20.1 % Platelet Count 149 TH/MM3 Mean Platelet Volume 10.9 FL Neutrophils (%) (Auto) 63.8 % Lymphocytes (%) (Auto) 10.1 % Monocytes (%) (Auto) 22.6 % Eosinophils (%) (Auto) 1.5 % Basophils (%) (Auto) 2.0 % Neutrophils # (Auto) 14.4 TH/MM3 Lymphocytes # (Auto) 2.3 TH/MM3 Monocytes # (Auto) 5.1 TH/MM3 Eosinophils # (Auto) 0.3 TH/MM3 Basophils # (Auto) 0.5 TH/MM3 CBC Comment AUTO DIFF Differential Total Cells Counted 100 Neutrophils % (Manual) 53 % Band Neutrophils % 14 % Lymphocytes % 13 % Monocytes % 16 % Eosinophils % 2 % Neutrophils # (Manual) 15.6 TH/MM3 Metamyelocytes 1 % Myelocytes 1 % Differential Comment FINAL DIFF MANUAL Platelet Estimate NORMAL Platelet Morphology Comment ENLARGED Keratocytes OCC Prothrombin Time 32.2 SEC Prothromb Time International Ratio 3.2 RATIO Activated Partial Thromboplast Time 34.5 SEC Blood Urea Nitrogen 18 MG/DL Creatinine 0.80 MG/DL Random Glucose 139 MG/DL Total Protein 7.4 GM/DL Albumin 2.8 GM/DL Calcium Level 7.9 MG/DL Alkaline Phosphatase 295 U/L Aspartate Amino Transf (AST/SGOT) 184 U/L Alanine Aminotransferase (ALT/SGPT) 116 U/L Total Bilirubin 5.8 MG/DL Direct Bilirubin 3.9 MG/DL Sodium Level 138 MEQ/L Potassium Level 3.7 MEQ/L Chloride Level 103 MEQ/L Carbon Dioxide Level 19.8 MEQ/L Anion Gap 15 MEQ/L Estimat Glomerular Filtration Rate 69 ML/MIN Indirect Bilirubin 1.9 MG/DL Troponin I LESS THAN 0.02 NG/ML B-Type Natriuretic Peptide 907 PG/ML Lipase 186 U/L MDM Medical Decision Making Medical Screen Exam Complete: Yes Emergency Medical Condition: Yes Medical Record Reviewed: Yes Interpretation(s) ECG shows atrial fibrillation at a rate of 94 Differential Diagnosis Anemia versus liver failure versus CHF versus ACS Narrative Course Patient is an 82-year-old female who comes in complaining of shortness of breath. She is jaundice on arrival, no other acute abnormality seen on exam. IV established, labs sent. Labs show worsening elevation in her bilirubin level. She has a white blood cell count of 22. Hemoglobin is 6.2. Chest x-ray shows bilateral lower lobe opacities. Last 24 hours Impressions Chest X-Ray 12/31/17 0341 Signed Impressions: Service Date/Time: Sunday, December 31, 2017 03:58 - CONCLUSION: Bibasilar opacities. Maycol Daniel MD Patient did have an ultrasound of her liver during her previous admission. All that was found was nonobstructing gallstones, no evidence of cholecystitis. Patient given 2 units of PRBCs. Given antibiotics. She will be admitted for further management. Diagnosis Primary Impression: Transaminitis Additional Impressions: Leukocytosis Qualified Codes: D72.829 - Elevated white blood cell count, unspecified Anemia Qualified Codes: D50.9 - Iron deficiency anemia, unspecified Hyperbilirubinemia Admitting Information Admitting Physician Requests: Admit Kelly Lujna MD Dec 31, 2017 04:57
[2017-12-31] MEDS ORDERED: RESP: ALBUTEROL 2.5 MG/IPRATROPIUM 0.5 MG NEB (PRN) NEB (05:00)
[2017-12-31] MEDS ORDERED: SODIUM CHLORIDE 0.9% FLUSH 10 ML FLUSH IV FLUSH PRN (05:00)
[2017-12-31] MEDS ORDERED: SENNOSIDES 8.6 MG TAB PO PRN (05:00)
[2017-12-31] MEDS ORDERED: MORPHINE SULFATE 2 MG/ML SYRINGE IV PUSH PRN (05:00)
[2017-12-31] MEDS ORDERED: BISACODYL 10 MG SUPP RECTAL PRN (05:00)
[2017-12-31] MEDS ORDERED: MAGNESIUM HYDROXIDE SUSP 30 ML CUP PO PRN (05:00)
[2017-12-31] MEDS ORDERED: LACTULOSE SYRUP 20 GM/30 ML CUP PO PRN (05:00)
[2017-12-31 05:21] LABS: BANDS 14 % (0-6); LYMPHOCYTES 13 % (9-44); METAMYELOCYTES 1 % (0-1); MONOCYTES 16 % (0-8); MYELOCYTES 1 % (0-0); NEUTROPHIL # MANUAL DIFF 15.6 TH/MM3 (1.8-7.7); POLYS (SEG NEUTROPHILS) 53 % (16-70)
[2017-12-31 05:22] LABS: KERATOCYTES OCC (NORMAL)
[2017-12-31] MEDS: ONDANSETRON HCL 4 MG/2 ML VIAL IVP PRN (07:24)
[2017-12-31] MEDS: SODIUM CHLORIDE 0.9% FLUSH 10 ML FLUSH IV FLUSH SCH ×2 (08:46→20:19)
--- NOTE | 2017-12-31 08:58 | HHI.HP ---
[facility] Service [facility] Primary Care Physician Batsheva Elise MD Admission Diagnosis SOB, anemia, jaundice Diagnoses: (1) Anemia Diagnosis: Principal Chief Complaint: shortness of breath Travel History International Travel<30 Days: No Contact w/Intl Traveler <30 Da: No Traveled to Known Affected Are: No History of Present Illness patient is a 82 y/o female with history of hemochromatosis,atrial fibrillation and hypertension who presented to ER with worsening anemia. she was admitted to this hospital about a month ago for the same reason. she was transfused with PRBC, evaluated by hematology and then discharged home. she says that initially she was feeling fine but gradually her sob got worse which made her to come back to ER. she denies any dizziness, chest pain, rectal bleed, black stools, cough or sputum production. she denies any abdominal pain, nausea or vomiting. Review of Systems Constitutional: DENIES: Fever, Weight loss, Chills, Night Sweats Eyes: DENIES: Blurred vision, Diplopia, Vision loss, Double Vision Ears, nose, mouth, throat: DENIES: Tinnitus, Vertigo, Throat pain, Epistaxis Respiratory: COMPLAINS OF: Shortness of breath, DENIES: Apneas, Cough, Snoring , Wheezing, Hemoptysis, Sputum production Cardiovascular: DENIES: Chest pain, Palpitations, Syncope, Dyspnea on Exertion , PND, Lower Extremity Edema, Orthopnea, Claudication Gastrointestinal: DENIES: Abdominal pain, Black stools, Bloody stools, Constipation, Diarrhea, Nausea, Vomiting, Difficulty Swallowing, Anorexia Genitourinary: DENIES: Urinary frequency, Urgency, Hematuria, Dysuria Musculoskeletal: DENIES: Joint pain, Muscle aches, Stiffness, Joint Swelling Integumentary: DENIES: Rash Neurologic: DENIES: Abnormal gait, Headache, Localized weakness, Paresthesias, Seizures, Speech Problems, Tremor, Poor Balance Psychiatric: DENIES: Anxiety, Confusion, Mood changes, Depression, Hallucinations, Agitation, Suicidal Ideation, Homicidal Ideation, Delusions Past Family Social History Past Medical History hemochromatosis/atrial fibrillation/ hypertension. Past Surgical History hysterectomy/hip replacement. Reported Medications Warfarin 1 Mg Tab 1.25 Mg PO SUNDAY Warfarin 2.5 Mg Tab 2.5 Mg PO DAILY Valsartan 320 Mg Tab 320 Mg PO DAILY Premarin (Estrogens Conjugated) 0.3 Mg Tab 0.3 Mg PO DAILY Omeprazole 20 Mg Tab 20 Mg PO DAILY Metoprolol Succinate/HCTZ 100-12.5 ER 100 Mg-12.5 Mg Tab 1 Tab PO DAILY Cartia Xt (Diltiazem ER 24 HR) 120 Mg Caper 120 Mg PO DAILY Allergies: Coded Allergies: Penicillins (Verified Allergy, Severe, vomiting, 12/06/17) Sulfa (Sulfonamide Antibiotics) (Verified Allergy, Severe, vomiting, ) ciprofloxacin (Verified Allergy, Severe, vomiting, 12/06/17) Active Ordered Medications Inpatient Medications Albuterol/ Ipratropium (Duoneb Neb) 1 ampule Q4HR NEB PRN NEB SOB/WHEEZING; Start 12/31/17 at 05:00 Azithromycin 500 mg/Sodium Chloride 250 ml @ 250 mls/hr Q24H IV ; Start at 06:00 Bisacodyl (Dulcolax Supp) 10 mg DAILY PRN RECTAL SEVERE CONSITIPATION; Start at 05:00 Cefepime HCl 1000 mg/Sodium Chloride 100 ml @ 200 mls/hr ONCE ONCE IV Last administered on 12/31/17at 04:47; Start 12/31/17 at 04:45; Stop 12/31/17 at 05:15; Status DC Ceftriaxone Sodium 1000 mg/ Sodium Chloride 100 ml @ 200 mls/hr Q24H IV ; Start 01/01/18 at 06:00 Diltiazem HCl (Cardizem Cd) 120 mg DAILY PO ; Start 12/31/17 at 09:00 Lactulose (Lactulose Liq) 30 ml DAILY PRN PO SEVERE CONSITIPATION; Start at 05:00 Magnesium Hydroxide (Milk Of Magnesia Liq) 30 ml Q12H PRN PO Mild constipation ; Start 12/31/17 at 05:00 Morphine Sulfate (Morphine Inj) 2 mg Q3H PRN IV PUSH Pain 6-10; Start 12/31/17 at 05:00 Ondansetron HCl (Zofran Inj) 4 mg Q6H PRN IVP NAUSEA OR VOMITING Last administered on 12/31/17at 07:24; Start 12/31/17 at 05:00 Oxycodone HCl (Roxicodone) 5 mg Q4H PRN PO PAIN SCALE 3 TO 5; Start 12/31/17 at 05:00 Senna/Docusate Sodium (Anita-Colace) 1 tab BID PO ; Start 12/31/17 at 09:00 Sennosides (Senokot) 17.2 mg Q12H PRN PO Moderate constipation; Start 12/31/17 at 05:00 Sodium Chloride (NS Flush) 2 ml BID IV FLUSH ; Start 12/31/17 at 09:00 Family History leukemia in brother. Social History doesn't smoke. drinks occasionally. Physical Exam Vital Signs Vital Signs Date Time Temp Pulse Resp B/P (MAP) Pulse Ox O2 Delivery O2 Flow Rate FiO2 12/31/17 08:35 97.1 81 20 121/72 97 12/31/17 08:31 97.1 81 20 121/72 97 12/31/17 07:58 97.6 70 18 134/62 99 12/31/17 07:25 75 18 121/60 (80) 100 Nasal Cannula 2.00 12/31/17 07:15 97.6 78 18 123/90 96 12/31/17 06:53 69 12 130/65 (86) 98 Nasal Cannula 2.00 12/31/17 05:27 100 Nasal Cannula 2.00 12/31/17 04:53 100 Nasal Cannula 2.00 12/31/17 03:35 96 Nasal Cannula 2.00 12/31/17 03:31 97.9 85 16 153/72 (99) 94 Physical Exam GENERAL: This is a well-nourished, well-developed patient, in no apparent distress. SKIN: No rashes, ecchymoses or lesions. Cool and dry. HEAD: Atraumatic. Normocephalic. No temporal or scalp tenderness. EYES: Pupils equal round and reactive. Extraocular motions intact. No scleral icterus. No injection or drainage. ENT: Nose without bleeding, purulent drainage or septal hematoma. Throat without erythema, tonsillar hypertrophy or exudate. Uvula midline. Airway patent. NECK: Trachea midline. No JVD or lymphadenopathy. Supple, nontender, no meningeal signs. CARDIOVASCULAR: Regular rate and rhythm without murmurs, gallops, or rubs. RESPIRATORY: Clear to auscultation. Breath sounds equal bilaterally. No wheezes , rales, or rhonchi. GASTROINTESTINAL: Abdomen soft, non-tender, nondistended. No hepato-splenomegaly , or palpable masses. No guarding. MUSCULOSKELETAL: Extremities without clubbing, cyanosis, or edema. No joint tenderness, effusion, or edema noted. No calf tenderness. Negative Homans sign bilaterally. NEUROLOGICAL: Awake and alert. Cranial nerves II through XII intact. Motor and sensory grossly within normal limits. Five out of 5 muscle strength in all muscle groups. Normal speech. Laboratory Laboratory Tests Test 12/31/17 03:45 White Blood Count 22.6 Red Blood Count 1.91 Hemoglobin 6.2 Hematocrit 18.9 Mean Corpuscular Volume 98.5 Mean Corpuscular Hemoglobin 32.4 Mean Corpuscular Hemoglobin Concent 32.9 Red Cell Distribution Width 20.1 Platelet Count 149 Mean Platelet Volume 10.9 Neutrophils (%) (Auto) 63.8 Lymphocytes (%) (Auto) 10.1 Monocytes (%) (Auto) 22.6 Eosinophils (%) (Auto) 1.5 Basophils (%) (Auto) 2.0 Neutrophils # (Auto) 14.4 Lymphocytes # (Auto) 2.3 Monocytes # (Auto) 5.1 Eosinophils # (Auto) 0.3 Basophils # (Auto) 0.5 CBC Comment AUTO DIFF Differential Total Cells Counted 100 Neutrophils % (Manual) 53 Band Neutrophils % 14 Lymphocytes % 13 Monocytes % 16 Eosinophils % 2 Neutrophils # (Manual) 15.6 Metamyelocytes 1 Myelocytes 1 Differential Comment FINAL DIFF MANUAL Platelet Estimate NORMAL Platelet Morphology Comment ENLARGED Keratocytes OCC Prothrombin Time 32.2 Prothromb Time International Ratio 3.2 Activated Partial Thromboplast Time 34.5 Blood Urea Nitrogen 18 Creatinine 0.80 Random Glucose 139 Total Protein 7.4 Albumin 2.8 Calcium Level 7.9 Alkaline Phosphatase 295 Aspartate Amino Transf (AST/SGOT) 184 Alanine Aminotransferase (ALT/SGPT) 116 Total Bilirubin 5.8 Direct Bilirubin 3.9 Sodium Level 138 Potassium Level 3.7 Chloride Level 103 Carbon Dioxide Level 19.8 Anion Gap 15 Estimat Glomerular Filtration Rate 69 Indirect Bilirubin 1.9 Troponin I LESS THAN 0.02 B-Type Natriuretic Peptide 907 Lipase 186 Result Diagram: 12/31/1734412/31/17 0345 Imaging Last Impressions Chest X-Ray 12/31/17 7724 Signed Impressions: Service Date/Time: Sunday, December 31, 2017 03:58 - CONCLUSION: Bibasilar opacities. MD Leeroy Baldwin VTE Risk Assessment Leeroy VTE Risk Assessment: Mod/High Risk (score >= 2) Reeserinjuvencio Risk Assessment Model Point Value = 1 Point Value = 2 Point Value = 3 Point Value = 5 Age 41-60 Minor surgery BMI > 25 kg/m2 Swollen legs Varicose veins or History of unexplained or recurrent spontaneous Oral contraceptives or hormone replacement Sepsis (< 1 month) Serious lung disease, including pneumonia (< 1 month) Abnormal pulmonary function Acute myocardial infarction Congestive heart failure (< 1 month) History of inflammatory bowel disease Medical patient at bed rest Age 61-74 Arthroscopic surgery Major open surgery (> 45 min) Laparoscopic surgery (> 45 min) Malignancy Confined to bed (> 72 hours) Immobilizing plaster cast Central venous access Age >= 75 History of VTE Family history of VTE Factor V Leiden Prothrombin [id number] Lupus anticoagulant Anticardiolipin antibodies Elevated serum homocysteine Heparin-induced thrombocytopenia Other congenital or acquired thrombophilia Stroke (< 1 month) Elective arthroplasty Hip, pelvis, or leg fracture Acute spinal cord injury (< 1 month) Prophylaxis Regimen Total Risk Factor Score Risk Level Prophylaxis Regimen 0-1 Low Early ambulation 2 Moderate Order ONE of the following: *Sequential Compression Device (SCD) *Heparin 5000 units SQ BID 3-4 Higher Order ONE of the following medications: *Heparin 5000 units SQ TID *Enoxaparin/Lovenox 40 mg SQ daily (WT < 150 kg, CrCl > 30 mL/min) *Enoxaparin/Lovenox 30 mg SQ daily (WT < 150 kg, CrCl > 10-29 mL/min) *Enoxaparin/Lovenox 30 mg SQ BID (WT < 150 kg, CrCl > 30 mL/min) AND/OR *Sequential Compression Device (SCD) 5 or more Highest Order ONE of the following medications: *Heparin 5000 units SQ TID (Preferred with Epidurals) *Enoxaparin/Lovenox 40 mg SQ daily (WT < 150 kg, CrCl > 30 mL/min) *Enoxaparin/Lovenox 30 mg SQ daily (WT < 150 kg, CrCl > 10-29 mL/min) *Enoxaparin/Lovenox 30 mg SQ BID (WT < 150 kg, CrCl > 30 mL/min) AND *Sequential Compression Device (SCD) Assessment and Plan Assessment and Plan A/P - acute on chronic anemia with history of hemochromatosis PRBC transfusion in process- will continue to monitor H/H- hematology and GI consulted. -questionable pneumonia with leukocytosis and bibasilar opacities on CXR- started on antibiotics- -atrial fibrillation - on coumadin with supratherpeutic INR; HR controlled- continue Cardizem- hold Metoprolol for now-coumadin on hold. -hypertension; resumed Cardizem- hold other home meds- will monitor and adjust the regimen as needed. -elevated LFT's- recent hepatitis panel negative and liver US with gallstones with no biliary duct dilatation. GI consulted as noted above. -DVT prophylaxis; resume Coumadin- pending GI and Hematology evaluation. Discussed Condition With the patient. Physician Certification 2 Midnight Certification Type: Admission for Inpatient Services Order for Inpatient Services The services are ordered in accordance with Medicare regulations or non- Medicare payer requirements, as applicable. In the case of services not specified as inpatient-only, they are appropriately provided as inpatient services in accordance with the 2-midnight benchmark. Estimated LOS (days): 2 days is the estimated time the patient will need to remain in the hospital, assuming treatment plan goals are met and no additional complications. Post-Hospital Plan: Home French Barragan MD Dec 31, 2017 08:58
[2017-12-31] MEDS: DOCUSATE SODIUM 50 MG/SENNA 8.6 MG TAB PO SCH ×2 (09:00→20:19)
[2017-12-31] MEDS: DILTIAZEM-CD 120 MG CAP ER PO SCH (09:05)
--- NOTE | 2017-12-31 10:29 | PD.CONS ---
HPI History of Present Illness This is a 82 year old female with hx hemochromatosis who presented with anemia and SOB. She has been feeling fatigued and SOB for the last 3 weeks. GI is consulted for elevated LFTs. SHe does endorse some nausea she associates with SOB but no vomiting. No obvious bleeding, she denies blood in stool or black tarry stool. Denies abd pain. Denies prior liver problems. She sees Dr Dixon and does have phlebotomy for hemochromatosis. 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 US 12/07/17 showed gallstones, no dilatation. CT 12/06/17 showed suspected venous congestion liver. At that time she had a negative hepatitis panel. No significat etoh consumption. 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 She had an EGD 2-3 y ago that was normal. ([facility] [place]) PFSH Past Medical History hemochromatosis/atrial fibrillation/ hypertension. Past Surgical History hysterectomy/hip replacement. ([place] [place]) Coded Allergies: Penicillins (Verified Allergy, Severe, vomiting, 12/06/17) Sulfa (Sulfonamide Antibiotics) (Verified Allergy, Severe, vomiting, ) ciprofloxacin (Verified Allergy, Severe, vomiting, 12/06/17) Family History leukemia in brother. Social History doesn't smoke. drinks occasionally. ([place]) Review of Systems Constitutional: COMPLAINS OF: Fatigue, DENIES: Fever Endocrine: DENIES: Polydipsia Eyes: DENIES: Blurred vision Ears, nose, mouth, throat: DENIES: Hearing loss Respiratory: DENIES: Cough Cardiovascular: DENIES: Chest pain Gastrointestinal: COMPLAINS OF: Nausea, DENIES: Abdominal pain, Black stools, Bloody stools, Vomiting, Hematemesis Genitourinary: DENIES: Hematuria Musculoskeletal: DENIES: Joint Swelling Integumentary: DENIES: Rash Hematologic/lymphatic: DENIES: Bruising Immunologic/allergic: DENIES: Eczema Neurologic: DENIES: Abnormal gait Psychiatric: DENIES: Confusion ([facility] [place]) GI Exam Vitals I&O Vital Signs Date Time Temp Pulse Resp B/P (MAP) Pulse Ox O2 Delivery O2 Flow Rate FiO2 12/31/17 08:35 97.1 81 20 121/72 97 12/31/17 08:31 97.1 81 20 121/72 97 12/31/17 07:58 97.6 70 18 134/62 99 12/31/17 07:25 75 18 121/60 (80) 100 Nasal Cannula 2.00 12/31/17 07:15 97.6 78 18 123/90 96 12/31/17 06:53 69 12 130/65 (86) 98 Nasal Cannula 2.00 12/31/17 05:27 100 Nasal Cannula 2.00 12/31/17 04:53 100 Nasal Cannula 2.00 12/31/17 03:35 96 Nasal Cannula 2.00 12/31/17 03:31 97.9 85 16 153/72 (99) 94 I/O 12/30/17 12/30/17 12/30/17 12/31/17 12/31/17 12/31/17 07:00 15:00 23:00 07:00 15:00 23:00 Intake Total 350 ml 20 ml Balance 350 ml 20 ml Intake IV Total 350 ml Blood Product IV Normal Saline Flush 20 ml Imaging Last Impressions Chest X-Ray 12/31/17 0341 Signed Impressions: Service Date/Time: Sunday, December 31, 2017 03:58 - CONCLUSION: Bibasilar opacities. Maycol Daniel MD Laboratory Test 12/31/17 03:45 White Blood Count 22.6 TH/MM3 Red Blood Count 1.91 MIL/MM3 Hemoglobin 6.2 GM/DL Hematocrit 18.9 % Mean Corpuscular Volume 98.5 FL Mean Corpuscular Hemoglobin 32.4 PG Mean Corpuscular Hemoglobin Concent 32.9 % Red Cell Distribution Width 20.1 % Platelet Count 149 TH/MM3 Mean Platelet Volume 10.9 FL Neutrophils (%) (Auto) 63.8 % Lymphocytes (%) (Auto) 10.1 % Monocytes (%) (Auto) 22.6 % Eosinophils (%) (Auto) 1.5 % Basophils (%) (Auto) 2.0 % Neutrophils # (Auto) 14.4 TH/MM3 Lymphocytes # (Auto) 2.3 TH/MM3 Monocytes # (Auto) 5.1 TH/MM3 Eosinophils # (Auto) 0.3 TH/MM3 Basophils # (Auto) 0.5 TH/MM3 CBC Comment AUTO DIFF Differential Total Cells Counted 100 Neutrophils % (Manual) 53 % Band Neutrophils % 14 % Lymphocytes % 13 % Monocytes % 16 % Eosinophils % 2 % Neutrophils # (Manual) 15.6 TH/MM3 Metamyelocytes 1 % Myelocytes 1 % Differential Comment FINAL DIFF MANUAL Platelet Estimate NORMAL Platelet Morphology Comment ENLARGED Keratocytes OCC Prothrombin Time 32.2 SEC Prothromb Time International Ratio 3.2 RATIO Activated Partial Thromboplast Time 34.5 SEC Blood Urea Nitrogen 18 MG/DL Creatinine 0.80 MG/DL Random Glucose 139 MG/DL Total Protein 7.4 GM/DL Albumin 2.8 GM/DL Calcium Level 7.9 MG/DL Alkaline Phosphatase 295 U/L Aspartate Amino Transf (AST/SGOT) 184 U/L Alanine Aminotransferase (ALT/SGPT) 116 U/L Total Bilirubin 5.8 MG/DL Direct Bilirubin 3.9 MG/DL Sodium Level 138 MEQ/L Potassium Level 3.7 MEQ/L Chloride Level 103 MEQ/L Carbon Dioxide Level 19.8 MEQ/L Anion Gap 15 MEQ/L Estimat Glomerular Filtration Rate 69 ML/MIN Indirect Bilirubin 1.9 MG/DL Troponin I LESS THAN 0.02 NG/ML B-Type Natriuretic Peptide 907 PG/ML Lipase 186 U/L Physical Examination HEENT: PERRL; normocephalic; atraumatic; subtle icterus. CHEST: CTA CARDIAC: RRR ABDOMEN: Soft, nondistended, nontender; no hepatosplenomegaly; bowel sounds are present in all four quadrants. EXTREMITIES: No clubbing, cyanosis, or edema. SKIN: Normal; no rash; no jaundice. CASH CONTROL SPECIALIST: No focal deficits; alert and oriented times three. ([facility]) Assessment and Plan Plan ASSESSMENT - elevated LFTs - could be r/t hemochromatosis but will get MRCP and liver w/u to r/o other cause elevated liver chem, obstruction. denies heavy etoh. US 12/07/17 showed gallstones, no duct dilatation, CT 12/07 showed suspected venous congestion liver. hep panel at that time was negative. - anemia hgb 6.2 on admission - no obvious bleeding. sees hematology for hemochromatosis, gets phlebotomy. on coumadin for AF. last colonoscopy years ago in [place], normal. EGD 2-3 y ago normal. - thrombocytopenia - PLT 149 PLAN - MRCP - liver w/u - await iron studies - monitor HH - transfuse as needed - notify GI of active bleeding - further recs to follow pt seen by myself and Dr Oden and this note is on his behalf ([facility] [place]) Plan None examined, agree with above-noted, patient has iron overload most likely causing her elevated liver function test, patient also has anemia questionable etiology we will monitor for GI bleed and transfuse as needed if anemia persists patient may need repeat colon EGD and possible hematology consult (Mitzy Odne MD) [facility] [place] Dec 31, 2017 10:29 Mitzy Oden MD Dec 31, 2017 18:42
--- NOTE | 2017-12-31 10:49 | RADRPT ---
EXAM DATE/TIME: 12/31/2017 00:00 [facility] COMPARISON: No previous studies available for comparison. INDICATIONS : Bone marrow biopsy CONSULTATION: Patient has an elevated INR 3.2 and is receiving blood for hemorrhage. Please reconsult for bone mar row biopsy the patient clinically stable. Joaquim Hernandez MD FACR on December 31, 2017 at 10:45 Board Certified Radiologist. This report was verified electronically.
--- NOTE | 2017-12-31 15:28 | EKG ---
Date Performed: 12/31/2017 Time Performed: 03:34:40 PTAGE: 82 years EKG: ATRIAL FIBRILLATION WITH ABERRANT CONDUCTION OR VENTRICULAR PREMATURE COMPLEXES NONSPECIFIC T-WAVE ABNORMALITY Since the previous tracing, no significant change noted ABNORMAL ECG PREVIOUS TRACING : 12/06/2017 18.30 DOCTOR: Swati Toth Interpretating Date/Time 12/31/2017 15:20:26
[2017-12-31 15:29] LABS: RHEUMATOID FACTOR SCREEN NEGATIVE (NEGATIVE)
[2017-12-31 15:32] LABS: HAPTOGLOBIN LESS THAN 10 MG/DL (30-200)
[2017-12-31 18:20] LABS: RETIC # 23.7 MIL/L (20.0-150.0); RETIC % 0.9 % (0.4-3.0)
[2017-12-31 18:46] LABS: % SATURATION IRON PROFILE 99.1 % (20-50); IRON (FE) 233 MCG/DL (50-170); TOTAL IRON BINDING CAPACITY 235 MCG/DL (250-450)
[2017-12-31 19:02] LABS: FERRITIN 3311 NG/ML (8-252)
--- NOTE | 2017-12-31 19:44 | RADRPT ---
EXAM DATE/TIME: 12/31/2017 18:50 [facility] COMPARISON: No previous studies available for comparison. INDICATIONS : Obstruction. MEDICAL HISTORY : Hypertension. SURGICAL HISTORY : Bilateral hip replacement. ENCOUNTER: Initial ACUITY: 3 day PAIN SCORE: 6/10 LOCATION: Bilateral upper quadrant TECHNIQUE: Multiplanar, multisequence magnetic resonance imaging of the abdomen was performed. High-resolution 3D dataset was utilized to reconstruct maximum-intensity projection (MIP) images. FINDINGS: Small to moderate bilateral complex pleural effusions. There is mild periportal edema in the liver. Multiple gallstones present within the gallbladder. The gallbladder wall is thickened and there is pericholecystic fluid. There is a small amount of ascites as well. Mild to moderate anasarca. No significant biliary ductal pancreatic ductal dilatation. No acute findings in the spleen, adrenals , kidneys or pancreas. CONCLUSION: Small to moderate bilateral complex pleural effusions. Mild periportal edema in the liver with minimal ascites and anasarca. No biliary ductal or pancreatic ductal dilatation. Numerous gallstones. Jovanni Meeks MD on December 31, 2017 at 19:35 Board Certified Radiologist. This report was verified electronically.
--- NOTE | 2017-12-31 19:45 | MB ---
cc: Tai Dixon MD DATE: 12/31/2017 REASON FOR CONSULTATION: Consult requested by hospitalist for evaluation of severe anemia and leukocytosis. HISTORY OF PRESENT ILLNESS: Dayana is a pleasant 82-year-old female. She was admitted to this hospital about 3 weeks ago. I was asked to see her during that admission for the same complaint, about leukocytosis and anemia. I had ordered the workup for that. She was in [place] last year and she saw a research geneticist. 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 The patient was getting phlebotomies. The last phlebotomy was in August. During that time, her white count was elevated. Her research geneticist has ordered a workup and has recommended a bone marrow biopsy. However, patient was coming down to [place] and deferred the workup. She was admitted here last month for severe anemia and had received blood transfusion, and she was discharged to home. I saw her last week, Sunday, in our office with her significant other. We had discussed obtaining the records from [place] regarding the workup for the leukocytosis, anemia and hemochromatosis. We had discussed that if the workup is inconclusive, then we will do a bone marrow aspirate and biopsy to evaluate for possible leukemia. The patient over the weekend was not feeling well. She had the same problems with extreme weakness, tiredness and fatigue. She was unable to walk. She was getting dizzy and had some blurring of vision. She decided to come to the emergency room yesterday. The admission CBC showed a white count of 22.6, hemoglobin 6.2, MCV and MCH both are normal. Platelet count is 149. The differential count is significant for neutrophilia with absolute neutrophil count of 15.6. She has metamyelocytes and myelocytes. She is now admitted to the hospital and has received 2 units of blood transfusion. Her liver enzymes are elevated. GI has been consulted. The patient is getting MRCP now. The rest of the review of systems is negative. PAST MEDICAL HISTORY: Atrial fibrillation, hemochromatosis, hypertension, anemia and leukocytosis. PAST SURGICAL HISTORY: Hip replacement, total hysterectomy, left lower leg vein stripping. ALLERGIES: PENICILLIN, SULFA, CIPRO. MEDICATIONS: Prior to coming to the hospital: Valsartan, Premarin, omeprazole, metoprolol, Cartia and warfarin. FAMILY HISTORY: None for malignancy. SOCIAL HISTORY: She does not smoke cigarettes and does not drink alcohol. PHYSICAL EXAMINATION: GENERAL: Reveals a well-developed, well-nourished, ill-appearing white female in no apparent distress. VITAL SIGNS: Temperature 97.8, heart rate is 92, blood pressure 175/95, O2 saturation 98%. HEENT: Sclerae are deeply icteric. No oral lesions noted. NECK: No lymphadenopathy. LUNGS: Clear. No wheezing, rhonchi or rales. HEART: Regular rate and rhythm. ABDOMEN: Soft. Tenderness noted in the right upper quadrant. EXTREMITIES: No pedal edema. NEUROLOGIC: Awake, alert, oriented x 3. SKIN: No significant lesions noted. ASSESSMENT: 1. Leukocytosis with severe anemia, most likely due to leukemia until proven otherwise. 2. Elevated liver enzymes. The etiology of that is unknown. 3. History of hemochromatosis and has been treated with phlebotomy in the past. The last phlebotomy was in August of last year. PLAN: I have reviewed her available records, and I have discussed with the patient regarding the leukocytosis and severe anemia. The MCV and MCH both are normal. On 12/06, when she was admitted to this hospital, the CBC showed hemoglobin of 7.9 and she had received 2 units of blood transfusion. On that CBC, her MCV was high at 100.2, white count was 19.1 and platelet count was 201. The differential count was significant for neutrophilia, metamyelocytes, myelocytes. Subsequently, her white count went up to 30,000. I had ordered the JAK2 mutation and BCR-ABL. Both came back negative. Also, the hemochromatosis gene analysis came back positive for 2 copies of C282Y mutation. At this time, my recommendation is to repeat iron studies, serum haptoglobin, reticulocyte count, LDH, serum protein electrophoresis, SAM, rheumatoid factor, sed rate and C-reactive protein. I will also consult interventional radiology for CT-guided core needle biopsy and aspirate to evaluate for leukemia. The patient does not have any bleeding. Her stools are heme negative. GI has been consulted. Most likely cause of severe anemia and leukocytosis is leukemia until proven otherwise. This was discussed with the patient. She stated that when she saw research geneticist in [place], he was also thinking of getting a bone marrow biopsy to evaluate for possible leukemia. The patient's INR is elevated at 3.2 which is due to coumadin. coumadin is now on hold. She will benefit from FFP prior to the bone marrow biopsy. Further recommendations based on her hospital stay. Thank you for asking my opinion. MD DONYA Morales/SHAE , 07:15 PM , 07:44 PM VINAYAK
[2017-12-31 20:19] LABS: WESTERGREN SEDIMENTATION RATE 45 mm/hr (0-30)
[2018-01-01 00:30] VITALS: BP 156/80; PULSE 102; RESP 18; TEMP 98.5; O2SAT 96
[2018-01-01 04:45] VITALS: BP 174/93; PULSE 103; RESP 17; TEMP 98.1; O2SAT 96
[2018-01-01] MEDS: cefTRIAXone INJ 1,000 MG in SODIUM CHLORIDE 0.9% INJ 100 ML IV SCH (05:11)
[2018-01-01 06:03] LABS: HEMATOCRIT 24.9 % (35.0-46.0); HEMOGLOBIN 8.5 GM/DL (11.6-15.3); MEAN CELL VOLUME 90.9 FL (80.0-100.0); MEAN CORPUSCULAR HGB CONC 34.2 % (32.0-36.0); MEAN PLATELET VOLUME 11.1 FL (7.0-11.0); PLATELET COUNT 133 TH/MM3 (150-450); RED BLOOD COUNT 2.74 MIL/MM3 (4.00-5.30); RED CELL DISTRIBUTION WIDTH 18.4 % (11.6-17.2); WHITE BLOOD COUNT 30.4 TH/MM3 (4.0-11.0)
[2018-01-01 06:08] LABS: INTERNATIONAL NORMALIZED RATIO 3.1 RATIO; PROTHROMBIN TIME - PATIENT 31.6 SEC (9.8-11.6)
[2018-01-01] MEDS: AZITHROMYCIN INJ 500 MG in SODIUM CHLOR 0.9% 250 ML INJ 250 ML IV SCH (06:14)
[2018-01-01 06:27] LABS: ALBUMIN 2.8 GM/DL (3.4-5.0); ALT (GPT) 239 U/L (10-53); AST (GOT) 400 U/L (15-37); BICARBONATE 22.8 MEQ/L (21.0-32.0); BLOOD UREA NITROGEN 21 MG/DL (7-18); CALCIUM 7.9 MG/DL (8.5-10.1); CHLORIDE 106 MEQ/L (98-107); CREATININE 0.64 MG/DL (0.50-1.00); GLOMERULAR FILTRATION RATE 89 ML/MIN (>89); GLUCOSE,RANDOM 104 MG/DL (74-106); SODIUM (NA) 137 MEQ/L (136-145)
[2018-01-01 06:30] LABS: ALKALINE PHOSPHATASE 265 U/L (45-117); TOTAL BILIRUBIN ADULT 6.2 MG/DL (0.2-1.0); TOTAL PROTEIN 7.3 GM/DL (6.4-8.2)
[2018-01-01 07:42] LABS: BANDS 13 % (0-6); BASOPHILS 1 % (0-2); LYMPHOCYTES 1 % (9-44); METAMYELOCYTES 3 % (0-1); MONOCYTES 10 % (0-8); MYELOCYTES 1 % (0-0); NEUTROPHIL # MANUAL DIFF 26.4 TH/MM3 (1.8-7.7); POLYS (SEG NEUTROPHILS) 69 % (16-70); PROMYELOCYTES 1 % (0-0)
[2018-01-01 07:43] LABS: OVALOCYTES 1+ (NORMAL); TOXIC GRANULATION 2+ (NORMAL)
[2018-01-01 08:00] VITALS: BP 159/89; PULSE 106; RESP 18; TEMP 97.9; O2SAT 95
[2018-01-01] MEDS: SODIUM CHLORIDE 0.9% FLUSH 10 ML FLUSH IV FLUSH SCH ×2 (09:00→20:40)
[2018-01-01] MEDS: DOCUSATE SODIUM 50 MG/SENNA 8.6 MG TAB PO SCH ×2 (09:00→20:40)
[2018-01-01] MEDS: DILTIAZEM-CD 120 MG CAP ER PO SCH (09:18)
--- NOTE | 2018-01-01 11:54 | PD.ONC.PN ---
Subjective Subjective Remarks Afebrile overnight. Patient resting in bed. she feels fatigued and hungry. waiting to go down for bone marrow biopsy. Objective Data Date Time Temp Pulse Resp B/P (MAP) Pulse Ox O2 Delivery O2 Flow Rate FiO2 01/01/18 08:00 97.9 106 18 159/89 (112) 95 01/01/18 04:45 98.1 103 17 174/93 (120) 96 01/01/18 00:30 98.5 102 18 156/80 (105) 96 12/31/17 20:35 98.7 115 18 166/92 (116) 94 12/31/17 16:00 97.7 85 20 140/60 (86) 98 12/31/17 12:20 97.8 92 20 175/95 98 12/31/17 12:05 97.2 90 20 138/67 97 12/31/17 12:00 97.2 90 22 138/67 (90) 97 01/01/18 01/01/18 01/01/18 07:00 15:00 23:00 Intake Total 460 ml Balance 460 ml Result Diagram: 01/01/18 0509 01/01/18 0509 Laboratory Results Laboratory Tests Test 12/31/17 17:45 01/01/18 05:09 Erythrocyte Sedimentation Rate 45 mm/hr Reticulocyte Count 0.9 % Absolute Reticulocyte Count 23.7 MIL/L Iron Level 233 MCG/DL Total Iron Binding Capacity 235 MCG/DL Percent Iron Saturation 99.1 % Ferritin 3311 NG/ML Lactate Dehydrogenase 970 U/L C-Reactive Protein 2.70 MG/DL Total Protein 7.2 GM/DL 7.3 GM/DL White Blood Count 30.4 TH/MM3 Red Blood Count 2.74 MIL/MM3 Hemoglobin 8.5 GM/DL Hematocrit 24.9 % Mean Corpuscular Volume 90.9 FL Mean Corpuscular Hemoglobin 31.0 PG Mean Corpuscular Hemoglobin Concent 34.2 % Red Cell Distribution Width 18.4 % Platelet Count 133 TH/MM3 Mean Platelet Volume 11.1 FL CBC Comment AUTO DIFF Differential Total Cells Counted 100 Neutrophils % (Manual) 69 % Band Neutrophils % 13 % Lymphocytes % 1 % Monocytes % 10 % Eosinophils % 1 % Basophils % 1 % Neutrophils # (Manual) 26.4 TH/MM3 Metamyelocytes 3 % Myelocytes 1 % Promyelocytes 1 % Differential Comment FINAL DIFF MANUAL Toxic Granulation 2+ Platelet Estimate LOW Platelet Morphology Comment NORMAL Ovalocytes 1+ Prothrombin Time 31.6 SEC Prothromb Time International Ratio 3.1 RATIO Blood Urea Nitrogen 21 MG/DL Creatinine 0.64 MG/DL Random Glucose 104 MG/DL Albumin 2.8 GM/DL Calcium Level 7.9 MG/DL Alkaline Phosphatase 265 U/L Aspartate Amino Transf (AST/SGOT) 400 U/L Alanine Aminotransferase (ALT/SGPT) 239 U/L Total Bilirubin 6.2 MG/DL Sodium Level 137 MEQ/L Potassium Level 3.6 MEQ/L Chloride Level 106 MEQ/L Carbon Dioxide Level 22.8 MEQ/L Anion Gap 8 MEQ/L Estimat Glomerular Filtration Rate 89 ML/MIN Tumor Marker Alpha Fetoprotein 2.7 NG/ML Administered Medications Medications (Trade) Dose Ordered Sig/Angeline Route PRN Reason Start Time Stop Time Status Last Admin Dose Admin Ceftriaxone Sodium 1000 mg/ Sodium Chloride 100 ml @ 200 mls/hr Q24H IV 01/01/18 06:00 01/01/18 05:11 Azithromycin 500 mg/Sodium Chloride 250 ml @ 250 mls/hr Q24H IV 01/01/18 06:00 01/01/18 06:14 Sodium Chloride (NS Flush) 2 ml BID IV FLUSH 12/31/17 09:00 12/31/17 20:19 Ondansetron HCl (Zofran Inj) 4 mg Q6H PRN IVP NAUSEA OR VOMITING 12/31/17 05:00 12/31/17 07:24 Oxycodone HCl (Roxicodone) 5 mg Q4H PRN PO PAIN SCALE 3 TO 5 12/31/17 05:00 12/31/17 20:19 Senna/Docusate Sodium (Anita-Colace) 1 tab BID PO 12/31/17 09:00 12/31/17 20:19 Diltiazem HCl (Cardizem Cd) 120 mg DAILY PO 12/31/17 09:00 01/01/18 09:18 Objective Remarks GENERAL: pleasant elderly female lying supine in bed in nad SKIN: Warm and dry. HEAD: Normocephalic. EYES: No injection or drainage. NECK: Supple, trachea midline. CARDIOVASCULAR: IRR RESPIRATORY: Breath sounds equal bilaterally. No accessory muscle use. GASTROINTESTINAL: Abdomen soft, non-tender, nondistended. EXTREMITIES: No cyanosis NEUROLOGICAL: awake and alert. normal speech. Assessment/Plan Problem List: (1) leukocytosis + anemia Plan: 01/01: await bone marrow biopsy. reviewed procedure at length with patient and discussed waiting a few days for results. give vitamin K 5mg PO x 1 now. --most likely due to leukemia until proven otherwise. --JAK2 and BCR-ABL negative --LDH high, haptoglobin low, vilma negative. --heme negative stools. --SPEP pending. --RF negative (2) Transaminitis ICD Codes: R74.0 - Nonspecific elevation of levels of transaminase and lactic acid dehydrogenase [LDH] Status: Acute Plan: --unclear etiology (3) Hemochromatosis ICD Codes: E83.119 - Hemochromatosis, unspecified Assessment 82y/o with severe anemia and leukocytosis, suspected leukemia, admitted with weakness, fatigue, dizziness. h/o Atrial fibrillation, hemochromatosis, hypertension, anemia and leukocytosis. Attending Statement The exam, history, and the medical decision-making described in the above note were completed with the assistance of the mid-level provider. I reviewed and agree with the findings presented. I attest that I had a [id number] encounter with the patient on the same day, and personally performed and documented my assessment and findings in the medical record. weak , tired, SOB Coumadin is on hold. INR is high. Give VitK 5 mg PO today. Repeat INR in Am if still >2 then will give FFP prior to BM bx. Ferritin yesterday at 1745 is 3311 most likely drawn after the Blood tx. Ferritin on 12/07 was 977 . The ferritin can not go up that high in short period of time. The 3000 ferritin is erroneous as it was done after the Blood TX. I have called the lab and ask the celina Salazar to run ferritin and iron profile on the specimen drawn at 0345 on 12/31 (when she came to ER). She will run it later today. I do not think her liver failure is due to hemochromatosis. Will d/w GI after the repeat Iron studies. Sarai Bowles Jan 01, 2018 11:54 Arben Dixon MD Jan 01, 2018 23:38
[2018-01-01 12:00] VITALS: BP 176/86; PULSE 105; RESP 18; TEMP 98.1; O2SAT 92
--- NOTE | 2018-01-01 13:18 | HHI.GIFU ---
Subjective Remarks Pt resting in bed, at bedside. Going for BM bx. ([facility]) Objective Vitals I&O Vital Signs Date Time Temp Pulse Resp B/P (MAP) Pulse Ox O2 Delivery O2 Flow Rate FiO2 01/01/18 08:00 97.9 106 18 159/89 (112) 95 01/01/18 04:45 98.1 103 17 174/93 (120) 96 01/01/18 00:30 98.5 102 18 156/80 (105) 96 12/31/17 20:35 98.7 115 18 166/92 (116) 94 12/31/17 16:00 97.7 85 20 140/60 (86) 98 I/O 12/31/17 12/31/17 12/31/17 01/01/18 01/01/18 01/01/18 07:00 15:00 23:00 07:00 15:00 23:00 Intake Total 350 ml 1120 ml 460 ml Balance 350 ml 1120 ml 460 ml Intake Oral 240 ml 360 ml IV Total 350 ml 100 ml Packed Cells 800 ml Blood Product IV Normal Saline Flush 80 ml # Voids 2 2 # Bowel Movements 0 Laboratory Laboratory Tests Test 12/31/17 17:45 01/01/18 05:09 Erythrocyte Sedimentation Rate 45 Reticulocyte Count 0.9 Absolute Reticulocyte Count 23.7 Iron Level 233 Total Iron Binding Capacity 235 Percent Iron Saturation 99.1 Ferritin 3311 Lactate Dehydrogenase 970 C-Reactive Protein 2.70 Total Protein 7.2 7.3 White Blood Count 30.4 Red Blood Count 2.74 Hemoglobin 8.5 Hematocrit 24.9 Mean Corpuscular Volume 90.9 Mean Corpuscular Hemoglobin 31.0 Mean Corpuscular Hemoglobin Concent 34.2 Red Cell Distribution Width 18.4 Platelet Count 133 Mean Platelet Volume 11.1 CBC Comment AUTO DIFF Differential Total Cells Counted 100 Neutrophils % (Manual) 69 Band Neutrophils % 13 Lymphocytes % 1 Monocytes % 10 Eosinophils % 1 Basophils % 1 Neutrophils # (Manual) 26.4 Metamyelocytes 3 Myelocytes 1 Promyelocytes 1 Differential Comment FINAL DIFF MANUAL Toxic Granulation 2+ Platelet Estimate LOW Platelet Morphology Comment NORMAL Ovalocytes 1+ Prothrombin Time 31.6 Prothromb Time International Ratio 3.1 Blood Urea Nitrogen 21 Creatinine 0.64 Random Glucose 104 Albumin 2.8 Calcium Level 7.9 Alkaline Phosphatase 265 Aspartate Amino Transf (AST/SGOT) 400 Alanine Aminotransferase (ALT/SGPT) 239 Total Bilirubin 6.2 Sodium Level 137 Potassium Level 3.6 Chloride Level 106 Carbon Dioxide Level 22.8 Anion Gap 8 Estimat Glomerular Filtration Rate 89 Tumor Marker Alpha Fetoprotein 2.7 Imaging Last Impressions Chest X-Ray 12/31/17 0341 Signed Impressions: Service Date/Time: Sunday, December 31, 2017 03:58 - CONCLUSION: Bibasilar opacities. Maycol Daniel MD Cholangiopancreatography MRI 12/31/17 0000 Signed Impressions: Service Date/Time: Sunday, December 31, 2017 18:50 - CONCLUSION: Small to moderate bilateral complex pleural effusions. Mild periportal edema in the liver with minimal ascites and anasarca. No biliary ductal or pancreatic ductal dilatation. Numerous gallstones. Jovanni Meeks MD Physical Exam HEENT: PERRL; normocephalic; atraumatic; no jaundice. CHEST: CTA CARDIAC: irr HR ABDOMEN: Soft, nondistended, nontender; no hepatosplenomegaly; bowel sounds are present in all four quadrants. EXTREMITIES: No clubbing, cyanosis, or edema. SKIN: Normal; no rash; no jaundice. 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 ([facility]) Assessment and Plan Plan ASSESSMENT - elevated LFTs - could be r/t hemochromatosis but will get MRCP and liver w/u to r/o other cause elevated liver chem, obstruction. denies heavy etoh. US 12/07/17 showed gallstones, no duct dilatation, CT 12/07 showed suspected venous congestion liver. hep panel at that time was negative. - anemia hgb 6.2 on admission - no obvious bleeding. sees hematology for hemochromatosis, gets phlebotomy. on coumadin for AF. last colonoscopy years ago in [place], normal. EGD 2-3 y ago normal. - thrombocytopenia - PLT 149 01/01/18 hem/onc now following, initiated w/u for leukemia, pt going for bm bx today. MRCP noted, gallstones, min ascites, anasarca, mild periportal edema, no ductal dilatation. serum iron, ferritin, saturation are high. LFT elevation likely 2/2 iron overload. no obvious GI bleeding. PLAN - await BM bx - await rest of liver w/u - monitor HH - transfuse as needed - notify GI of active bleeding - supportive care pt seen by myself and Dr Odne and this note is on his behalf ([facility]) Plan Patient was seen and examined, agree with the above note, going for bone marrow biopsy, questionable etiology for the anemia,: EGD if there is any suspicion for GI bleed, continue supportive care (Mitzy Oden MD) [facility] Jan 01, 2018 13:18 Mitzy Oden MD Jan 01, 2018 19:19
[2018-01-01] MEDS ORDERED: PHYTONADIONE 5 MG TAB PO ONE (15:00)
[2018-01-01 16:00] VITALS: BP 163/85; PULSE 120; RESP 18; TEMP 98.1; O2SAT 93
--- NOTE | 2018-01-01 16:48 | HHI.PR ---
Subjective Remarks The patient was resting comfortably in bed. She was anticipating her bone marrow biopsy tomorrow. She denied any pain. She said she was going to try to eat some turkey tonight. Her family was at the bedside and the questions were answered. Discussed with nursing. Objective Vitals Vital Signs Date Time Temp Pulse Resp B/P (MAP) Pulse Ox O2 Delivery O2 Flow Rate FiO2 01/01/18 08:00 97.9 106 18 159/89 (112) 95 01/01/18 04:45 98.1 103 17 174/93 (120) 96 01/01/18 00:30 98.5 102 18 156/80 (105) 96 12/31/17 20:35 98.7 115 18 166/92 (116) 94 I/O 12/31/17 12/31/17 12/31/17 01/01/18 01/01/18 01/01/18 07:00 15:00 23:00 07:00 15:00 23:00 Intake Total 350 ml 1120 ml 460 ml Balance 350 ml 1120 ml 460 ml Intake Oral 240 ml 360 ml IV Total 350 ml 100 ml Packed Cells 800 ml Blood Product IV Normal Saline Flush 80 ml # Voids 2 2 # Bowel Movements 0 Result Diagram: 01/01/18 0509 01/01/18 0509 Imaging Last Impressions Chest X-Ray 12/31/17 0341 Signed Impressions: Service Date/Time: Sunday, December 31, 2017 03:58 - CONCLUSION: Bibasilar opacities. Maycol Daniel MD Cholangiopancreatography MRI 12/31/17 0000 Signed Impressions: Service Date/Time: Sunday, December 31, 2017 18:50 - CONCLUSION: Small to moderate bilateral complex pleural effusions. Mild periportal edema in the liver with minimal ascites and anasarca. No biliary ductal or pancreatic ductal dilatation. Numerous gallstones. Jovanni Meeks MD Objective Remarks GENERAL: This is a well-nourished, well-developed patient, in no apparent distress. SKIN: No rashes, ecchymoses or lesions. Cool and dry. Jaundiced. HEAD: Atraumatic. Normocephalic. No temporal or scalp tenderness. EYES: Pupils equal round and reactive. Extraocular motions intact. No scleral icterus. No injection or drainage. ENT: Nose without bleeding, purulent drainage or septal hematoma. Throat without erythema, tonsillar hypertrophy or exudate. Uvula midline. Airway patent. NECK: Trachea midline. No JVD or lymphadenopathy. Supple, nontender, no meningeal signs. CARDIOVASCULAR: Regular rate and rhythm without murmurs, gallops, or rubs. RESPIRATORY: Clear to auscultation. Breath sounds equal bilaterally. No wheezes , rales, or rhonchi. GASTROINTESTINAL: Abdomen soft, non-tender, nondistended. No hepato-splenomegaly , or palpable masses. No guarding. MUSCULOSKELETAL: Extremities without clubbing, cyanosis, or edema. No joint tenderness, effusion, or edema noted. NEUROLOGICAL: Awake and alert. Cranial nerves II through XII intact. Motor and sensory grossly within normal limits. Five out of 5 muscle strength in all muscle groups. Normal speech. PSYCH: Mood and affect appropriate. Medications and IVs Current Medications Medications (Trade) Dose Ordered Sig/Angeline Route Start Time Stop Time Status Last Admin Ceftriaxone Sodium 1000 mg/ Sodium Chloride 100 ml @ 200 mls/hr Q24H IV 01/01/18 06:00 01/01/18 05:11 Azithromycin 500 mg/Sodium Chloride 250 ml @ 250 mls/hr Q24H IV 01/01/18 06:00 01/01/18 06:14 (Duoneb Neb) 1 ampule Q4HR NEB PRN NEB 12/31/17 05:00 (NS Flush) 2 ml UNSCH PRN IV FLUSH 12/31/17 05:00 (NS Flush) 2 ml BID IV FLUSH 12/31/17 09:00 12/31/17 20:19 (Zofran Inj) 4 mg Q6H PRN IVP 12/31/17 05:00 12/31/17 07:24 (Morphine Inj) 2 mg Q3H PRN IV PUSH 12/31/17 05:00 (Roxicodone) 5 mg Q4H PRN PO 12/31/17 05:00 12/31/17 20:19 (Anita-Colace) 1 tab BID PO 12/31/17 09:00 12/31/17 20:19 (Milk Of Magnesia Liq) 30 ml Q12H PRN PO 12/31/17 05:00 (Senokot) 17.2 mg Q12H PRN PO 12/31/17 05:00 (Dulcolax Supp) 10 mg DAILY PRN RECTAL 12/31/17 05:00 (Lactulose Liq) 30 ml DAILY PRN PO 12/31/17 05:00 (Cardizem Cd) 120 mg DAILY PO 12/31/17 09:00 01/01/18 09:18 (Lopressor) 50 mg Q12HR PO 01/01/18 16:00 A/P Problem List: (1) Anemia ICD Code: D64.9 - Anemia, unspecified Status: Acute Assessment and Plan Acute on chronic anemia with history of hemochromatosis and leukocytosis S/p PRBC transfusion. Hematology consult appreciated. - will continue to monitor H/H. - bone marrow biopsy per oncology. - GI following. Questionable pneumonia with leukocytosis and bibasilar opacities on CXR. - started on antibiotics. Atrial fibrillation on Coumadin with supratherpeutic INR; HR controlled- continue Cardizem and Metoprolol. - Coumadin on hold. Vit K per hematology. Hypertension - resumed Cardizem and metoprolol. Elevated LFT's recent hepatitis panel negative and liver US with gallstones with no biliary duct dilatation. GI consult appreciated. MRCP noted. - follow LFTs. - GI following. DVT prophylaxis: Coumadin on hold Venkata Jules DO Jan 01, 2018 16:48
[2018-01-01] MEDS ORDERED: PHYTONADIONE 5 MG/SWFI 5 ML ORAL SYR PO ONE (17:00)
[2018-01-01] MEDS: METOPROLOL TARTRATE 50 MG TAB PO SCH ×2 (17:20→20:40)
[2018-01-01 18:25] VITALS: BP 142/70; PULSE 89; RESP 19; TEMP 97.5; O2SAT 91
[2018-01-01 18:35] LABS: IRON (FE) 248 MCG/DL (50-170)
[2018-01-01 18:38] LABS: FERRITIN 1277 NG/ML (8-252)
[2018-01-02] VITALS (12 sets, daily range): BP systolic 120–153; BP diastolic 66–84; PULSE 74–105; RESP 16–20; TEMP 97.5–98.5; O2SAT 92–98
[2018-01-02] MEDS: AZITHROMYCIN INJ 500 MG in SODIUM CHLOR 0.9% 250 ML INJ 250 ML IV SCH (05:49)
[2018-01-02] MEDS: cefTRIAXone INJ 1,000 MG in SODIUM CHLORIDE 0.9% INJ 100 ML IV SCH (05:49)
[2018-01-02] MEDS: METOPROLOL TARTRATE 50 MG TAB PO SCH ×2 (08:35→20:14)
[2018-01-02] MEDS: DILTIAZEM-CD 120 MG CAP ER PO SCH (08:35)
[2018-01-02] MEDS: ONDANSETRON HCL 4 MG/2 ML VIAL IVP PRN (08:35)
[2018-01-02] MEDS: DOCUSATE SODIUM 50 MG/SENNA 8.6 MG TAB PO SCH ×2 (08:36→20:14)
[2018-01-02] MEDS: SODIUM CHLORIDE 0.9% FLUSH 10 ML FLUSH IV FLUSH SCH ×2 (08:36→20:14)
[2018-01-02 09:21] LABS: INTERNATIONAL NORMALIZED RATIO 2.1 RATIO
[2018-01-02 09:28] LABS: HEMOGLOBIN 8.6 GM/DL (11.6-15.3); MEAN CORPUSCULAR HEMOGLOBIN 31.6 PG (27.0-34.0); MEAN CORPUSCULAR HGB CONC 34.3 % (32.0-36.0); MEAN PLATELET VOLUME 11.3 FL (7.0-11.0); PLATELET COUNT 141 TH/MM3 (150-450); RED BLOOD COUNT 2.72 MIL/MM3 (4.00-5.30); RED CELL DISTRIBUTION WIDTH 19.1 % (11.6-17.2); WHITE BLOOD COUNT 29.2 TH/MM3 (4.0-11.0)
[2018-01-02 09:40] LABS: ALBUMIN 2.6 GM/DL (3.4-5.0); AST (GOT) 185 U/L (15-37); BICARBONATE 20.8 MEQ/L (21.0-32.0); BLOOD UREA NITROGEN 21 MG/DL (7-18); CALCIUM 8.1 MG/DL (8.5-10.1); CHLORIDE 106 MEQ/L (98-107); CREATININE 0.76 MG/DL (0.50-1.00); GLOMERULAR FILTRATION RATE 73 ML/MIN (>89); GLUCOSE,RANDOM 157 MG/DL (74-106); SODIUM (NA) 137 MEQ/L (136-145)
[2018-01-02 09:41] LABS: ALT (GPT) 166 U/L (10-53)
[2018-01-02 09:43] LABS: ALKALINE PHOSPHATASE 265 U/L (45-117); TOTAL BILIRUBIN ADULT 5.3 MG/DL (0.2-1.0); TOTAL PROTEIN 7.1 GM/DL (6.4-8.2)
[2018-01-02 10:38] LABS: BANDS 10 % (0-6); BASOPHILS 1 % (0-2); LYMPHOCYTES 6 % (9-44); MONOCYTES 11 % (0-8); NEUTROPHIL # MANUAL DIFF 23.4 TH/MM3 (1.8-7.7); POLYS (SEG NEUTROPHILS) 70 % (16-70)
[2018-01-02 10:41] LABS: ACANTHOCYTES OCC (NORMAL); TOXIC GRANULATION 1+ (NORMAL)
[2018-01-02] MEDS ORDERED: diphenhydrAMINE HCL 25 MG CAP PO PRN (10:45)
[2018-01-02] MEDS ORDERED: ACETAMINOPHEN 325 MG TAB PO PRN (10:45)
--- NOTE | 2018-01-02 11:02 | PD.ONC.PN ---
Subjective Subjective Remarks Afebrile overnight. Patient nervous about bone marrow biopsy. denies pain. otherwise without complaint. Objective Data Date Time Temp Pulse Resp B/P (MAP) Pulse Ox O2 Delivery O2 Flow Rate FiO2 01/02/18 07:55 97.7 83 18 120/66 (84) 98 01/02/18 00:45 98.1 97 18 141/72 (95) 93 01/01/18 19:49 Nasal Cannula 2.00 01/01/18 18:25 97.5 89 19 142/70 (94) 91 01/01/18 16:00 98.1 120 18 163/85 (111) 93 01/01/18 16:00 96 Room Air 01/01/18 12:00 98.1 105 18 176/86 (116) 92 01/02/18 01/02/18 01/02/18 07:00 15:00 23:00 Intake Total 0 ml Balance 0 ml Result Diagram: 01/02/18 0802 01/02/18 0802 Laboratory Results Laboratory Tests Test 01/02/18 08:02 White Blood Count 29.2 TH/MM3 Red Blood Count 2.72 MIL/MM3 Hemoglobin 8.6 GM/DL Hematocrit 25.0 % Mean Corpuscular Volume 92.0 FL Mean Corpuscular Hemoglobin 31.6 PG Mean Corpuscular Hemoglobin Concent 34.3 % Red Cell Distribution Width 19.1 % Platelet Count 141 TH/MM3 Mean Platelet Volume 11.3 FL CBC Comment AUTO DIFF Differential Total Cells Counted 100 Neutrophils % (Manual) 70 % Band Neutrophils % 10 % Lymphocytes % 6 % Monocytes % 11 % Eosinophils % 2 % Basophils % 1 % Neutrophils # (Manual) 23.4 TH/MM3 Differential Comment FINAL DIFF MANUAL Toxic Granulation 1+ Platelet Estimate LOW Platelet Morphology Comment ENLARGED Ovalocytes Acanthocytes OCC Prothrombin Time 21.0 SEC Prothromb Time International Ratio 2.1 RATIO Blood Urea Nitrogen 21 MG/DL Creatinine 0.76 MG/DL Random Glucose 157 MG/DL Total Protein 7.1 GM/DL Albumin 2.6 GM/DL Calcium Level 8.1 MG/DL Alkaline Phosphatase 265 U/L Aspartate Amino Transf (AST/SGOT) 185 U/L Alanine Aminotransferase (ALT/SGPT) 166 U/L Total Bilirubin 5.3 MG/DL Sodium Level 137 MEQ/L Potassium Level 3.8 MEQ/L Chloride Level 106 MEQ/L Carbon Dioxide Level 20.8 MEQ/L Anion Gap 10 MEQ/L Estimat Glomerular Filtration Rate 73 ML/MIN Administered Medications Medications (Trade) Dose Ordered Sig/Angeline Route PRN Reason Start Time Stop Time Status Last Admin Dose Admin Ceftriaxone Sodium 1000 mg/ Sodium Chloride 100 ml @ 200 mls/hr Q24H IV 01/01/18 06:00 01/02/18 05:49 Azithromycin 500 mg/Sodium Chloride 250 ml @ 250 mls/hr Q24H IV 01/01/18 06:00 01/02/18 05:49 Sodium Chloride (NS Flush) 2 ml BID IV FLUSH 12/31/17 09:00 01/01/18 20:40 Ondansetron HCl (Zofran Inj) 4 mg Q6H PRN IVP NAUSEA OR VOMITING 12/31/17 05:00 01/02/18 08:35 Oxycodone HCl (Roxicodone) 5 mg Q4H PRN PO PAIN SCALE 3 TO 5 12/31/17 05:00 12/31/17 20:19 Senna/Docusate Sodium (Anita-Colace) 1 tab BID PO 12/31/17 09:00 01/01/18 20:40 Diltiazem HCl (Cardizem Cd) 120 mg DAILY PO 12/31/17 09:00 01/02/18 08:35 Metoprolol Tartrate (Lopressor) 50 mg Q12HR PO 01/01/18 16:00 01/02/18 08:35 Objective Remarks GENERAL: pleasant female, lying in bed in nad. SKIN: Warm and dry. HEAD: Normocephalic. EYES: No injection or drainage. NECK: Supple, trachea midline. CARDIOVASCULAR: IRR RESPIRATORY: Breath sounds equal bilaterally. No accessory muscle use. GASTROINTESTINAL: Abdomen soft, non-tender, nondistended. EXTREMITIES: No cyanosis NEUROLOGICAL: awake and alert. normal speech. moving extremities. Assessment/Plan Problem List: (1) leukocytosis + anemia Plan: 01/02: give 2 units FFP. bone marrow biopsy today. will start heparin gtt this evening. --most likely due to leukemia until proven otherwise. --JAK2 and BCR-ABL negative --LDH high, haptoglobin low, vilma negative. --heme negative stools. --SPEP pending. --RF negative (2) Transaminitis ICD Codes: R74.0 - Nonspecific elevation of levels of transaminase and lactic acid dehydrogenase [LDH] Status: Acute Plan: --unclear etiology (3) Hemochromatosis ICD Codes: E83.119 - Hemochromatosis, unspecified Plan: --Ferritin on 01/01 was 3311 (most likely erroneous, drawn after the blood transfusion). --repeat ferritin drawn on blood 0345AM on 12/31 was 1277 Assessment 82y/o with severe anemia and leukocytosis, suspected leukemia, admitted with weakness, fatigue, dizziness. h/o Atrial fibrillation, hemochromatosis, hypertension, anemia and leukocytosis. Attending Statement The exam, history, and the medical decision-making described in the above note were completed with the assistance of the mid-level provider. I reviewed and agree with the findings presented. I attest that I had a [id number]-[id number] encounter with the patient on the same day, and personally performed and documented my assessment and findings in the medical record. c/o nausea, and weakness. for BM bx today. FFP prior to Bx Ferritin 1277 prior to Blood tx on arrival to ER. Ferritin 3311 is after the tx .. Last admission (3 weeks ago) Ferritin 977. GI has order HFE. I have cancel the order as she had it on last admission . 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 She has liver failure the cause is unknown. May benefit from liver bx when more stable. Will D/W Dr isaac. Due to severe anemia not a candidate for therapeutic phlebotomy for Hemochromatosis. Will consider Exjade after BM bx result. Sarai Bowles Jan 02, 2018 11:02 Arben Dixon MD Jan 02, 2018 18:51
[2018-01-02] MEDS ORDERED: SODIUM CHLOR 0.9% 250 ML INJ 250 ML IV ONE (11:30)
[2018-01-02] MEDS ORDERED: MIDAZOLAM HCL 2 MG/2 ML VIAL ONE (12:37)
--- NOTE | 2018-01-02 13:02 | HHI.GIFU ---
Subjective Remarks Pt resting in bed Reports some nausea, relieved with antiemetics Denies emesis Denies abdominal pain (Deana Kwon) Objective Vitals I&O Vital Signs Date Time Temp Pulse Resp B/P (MAP) Pulse Ox O2 Delivery O2 Flow Rate FiO2 01/02/18 12:11 97.8 100 19 146/75 97 01/02/18 11:48 97.9 84 19 153/69 01/02/18 07:55 97.7 83 18 120/66 (84) 98 01/02/18 00:45 98.1 97 18 141/72 (95) 93 01/01/18 19:49 Nasal Cannula 2.00 01/01/18 18:25 97.5 89 19 142/70 (94) 91 01/01/18 16:00 98.1 120 18 163/85 (111) 93 01/01/18 16:00 96 Room Air I/O 01/01/18 01/01/18 01/01/18 01/02/18 01/02/18 01/02/18 07:00 15:00 23:00 07:00 15:00 23:00 Intake Total 460 ml 240 ml 0 ml Balance 460 ml 240 ml 0 ml Intake Oral 360 ml 240 ml 0 ml IV Total 100 ml # Voids 2 2 2 # Bowel Movements 0 0 Laboratory Laboratory Tests Test 01/02/18 08:02 White Blood Count 29.2 Red Blood Count 2.72 Hemoglobin 8.6 Hematocrit 25.0 Mean Corpuscular Volume 92.0 Mean Corpuscular Hemoglobin 31.6 Mean Corpuscular Hemoglobin Concent 34.3 Red Cell Distribution Width 19.1 Platelet Count 141 Mean Platelet Volume 11.3 CBC Comment AUTO DIFF Differential Total Cells Counted 100 Neutrophils % (Manual) 70 Band Neutrophils % 10 Lymphocytes % 6 Monocytes % 11 Eosinophils % 2 Basophils % 1 Neutrophils # (Manual) 23.4 Differential Comment FINAL DIFF MANUAL Toxic Granulation 1+ Platelet Estimate LOW Platelet Morphology Comment ENLARGED Ovalocytes Acanthocytes OCC Prothrombin Time 21.0 Prothromb Time International Ratio 2.1 Blood Urea Nitrogen 21 Creatinine 0.76 Random Glucose 157 Total Protein 7.1 Albumin 2.6 Calcium Level 8.1 Alkaline Phosphatase 265 Aspartate Amino Transf (AST/SGOT) 185 Alanine Aminotransferase (ALT/SGPT) 166 Total Bilirubin 5.3 Sodium Level 137 Potassium Level 3.8 Chloride Level 106 Carbon Dioxide Level 20.8 Anion Gap 10 Estimat Glomerular Filtration Rate 73 Imaging Last Impressions Chest X-Ray 12/31/17 0341 Signed Impressions: Service Date/Time: Sunday, December 31, 2017 03:58 - CONCLUSION: Bibasilar opacities. Maycol Daniel MD Cholangiopancreatography MRI 12/31/17 0000 Signed Impressions: Service Date/Time: Sunday, December 31, 2017 18:50 - CONCLUSION: Small to moderate bilateral complex pleural effusions. Mild periportal edema in the liver with minimal ascites and anasarca. No biliary ductal or pancreatic ductal dilatation. Numerous gallstones. Jovanni Meeks MD Physical Exam HEENT: Normocephalic; atraumatic; (+) icterus CHEST: Even/unlabored CARDIAC: Irregularly irregular ABDOMEN: Soft, nondistended, nontender; bowel sounds active SKIN: (+) jaundice. APPEALS EXAMINER: No focal deficits; alert and oriented times three. (Deana Kwon [facility]) Assessment and Plan Plan ASSESSMENT - elevated LFTs - could be r/t hemochromatosis but will get MRCP and liver w/u to r/o other cause elevated liver chem, obstruction. denies heavy etoh. US 12/07/17 showed gallstones, no duct dilatation, CT 12/07 showed suspected venous congestion liver. hep panel at that time was negative. - anemia hgb 6.2 on admission - no obvious bleeding. sees hematology for hemochromatosis, gets phlebotomy. on coumadin for AF. last colonoscopy years ago in [place], normal. - thrombocytopenia - PLT 149 01/01/18 hem/onc now following, initiated w/u for leukemia, pt going for bm bx today. MRCP noted, gallstones, min ascites, anasarca, mild periportal edema, no ductal dilatation. serum iron, ferritin, saturation are high. LFT elevation likely 2/2 iron overload. no obvious GI bleeding. (01/02) Pt reports some nausea, relieved with antiemetics, denies emesis. Denies abdominal pain. H/H remains stable over night. Hemoccult stool pending. Bone marrow biopsy pending. Pt reports last EGD was 3-4 years ago, unsure of findings. has never had colonoscopy. Denies history of GIB. Platelets remain about the same- 141 INR- 2.1 --> 2 U FFP ordered for transfusion today LFTs improving some today. Alk phos remains the same. Liver DAO pending. Liver Work up SAM negative, Ferritin-3311 Iron-233 %sat 99.1 AFP-2.7 AMA, ASMA, hepatitis panel, ceruloplasmin, A1A pending MRCP (12/31) --> Mild periportal edema in the liver with minimal ascites and anasarca. No biliary ductal or pancreatic ductal dilatation. Numerous gallstones. PLAN - Liver work up pending - Add HFE due to elevated Ferritin - Bone marrow biopsy pending - Hemoccult stool pending - EGD if suspicious for GIB - Continue to monitor CBC, INR, and LFTs - Transfuse per hematology - Further recommendations based on clinical course and results of above Pt has been seen and examined by myself and Dr. Oden and this note is written on his behalf (Deana Kwon) Plan Patient was seen and examined, laying in bed comfortably, I waiting bone marrow biopsy so a little bit anxious, no sign of active bleeding, if the bone marrow was unremarkable and the patient will need GI workup and possible colonoscopy will follow up with you (Mitzy Oden MD) Deana Kwon Jan 02, 2018 13:02 Mitzy Oden MD Jan 02, 2018 13:59
[2018-01-02 14:11] LABS: SMOOTH MUSCLE TOTAL AUTOABS Negative (Negative)
--- NOTE | 2018-01-02 15:13 | RADRPT ---
EXAM DATE/TIME: 01/02/2018 13:18 [place] COMPARISON: No previous studies available for comparison. INDICATIONS : Anemia, leukocytosis, hemachromatosis SEDATION TIME: 15 minutes BIOPSY SITE: Right ilium MEDICATION(S): 1.) 0.5 mg midazolam (Versed) IV 2.) 50 mcg fentanyl (Sublimaze) IV DEVICE(S): 1.) 11 gauge On-Control needle MEDICAL HISTORY : Hypertension. SURGICAL HISTORY : Hysterectomy. ENCOUNTER: Initial ACUITY: 1 day PAIN SCORE: 0/10 LOCATION: pelvis A total of one core specimen(s) were obtained and sent to the laboratory for pathologic evaluation. PROCEDURE: 1. CT guided bone marrow biopsy. Prior to the procedure informed consent was obtained. Any appropriate prior imaging studies were rev iewed. Using automated exposure control and adjustment of the mA and/or kV according to patient size , radiation dose was kept as low as reasonably achievable to obtain optimal diagnostic quality images . DICOM format image data is available electronically for review and comparison. The site was prepped in a sterile fashion. Full sterile technique was used, including cap, mask, domenico rile gloves and gown and a large sterile sheet. Hand hygiene and 2% chlorhexidine and/or betadine/al cohol prep was utilized per protocol for cutaneous antisepsis. The skin and subcutaneous tissues wer e infiltrated with local anesthetic solution. With CT guidance the previously identified target was localized. Biopsy was performed using the presc ribed needle as above. Following biopsy marrow aspiration was performed with repeat puncture. Adequa te hemostasis was obtained with compression at the puncture site. Follow-up CT scan reveals no hemorrhage. Conscious sedation was performed with the prescribed dosages and duration as above in the presence of an independent trained radiology nurse to assist in the monitoring of the patient. EKG and oximetry remained stable throughout the procedure. The patient tolerated the procedure well and there were no complications. The patient was sent to Radiology Outpatient Unit in stable condition. CONCLUSION: 1. Uncomplicated CT guided bone marrow aspirate. 2. Uncomplicated CT guided bone marrow biopsy. Joaquim Hernandez MD FACR on January 02, 2018 at 15:10 Board Certified Radiologist. This report was verified electronically.
--- NOTE | 2018-01-02 15:36 | HHI.PR ---
Subjective Remarks The patient was seen following her bone marrow biopsy. She denied any pain. She was anxious about the results. Her was at the bedside. She mentioned she has had a cough for the past couple of days and had some shortness of breath this morning. Discussed with nursing. Objective Vitals Vital Signs Date Time Temp Pulse Resp B/P (MAP) Pulse Ox O2 Delivery O2 Flow Rate FiO2 01/02/18 14:40 81 18 135/75 (95) 94 01/02/18 14:10 78 20 130/84 (99) 93 01/02/18 13:55 98.2 74 20 131/80 (97) 92 01/02/18 12:11 97.8 100 19 146/75 97 01/02/18 11:48 97.9 84 19 153/69 01/02/18 07:55 97.7 83 18 120/66 (84) 98 01/02/18 00:45 98.1 97 18 141/72 (95) 93 01/01/18 19:49 Nasal Cannula 2.00 01/01/18 18:25 97.5 89 19 142/70 (94) 91 01/01/18 16:00 98.1 120 18 163/85 (111) 93 01/01/18 16:00 96 Room Air I/O 01/01/18 01/01/18 01/01/18 01/02/18 01/02/18 01/02/18 07:00 15:00 23:00 07:00 15:00 23:00 Intake Total 460 ml 240 ml 0 ml 328 ml Balance 460 ml 240 ml 0 ml 328 ml Intake Oral 360 ml 240 ml 0 ml IV Total 100 ml FFP 308 ml Blood Product IV Normal Saline Flush 20 ml # Voids 2 2 2 # Bowel Movements 0 0 Result Diagram: 01/02/18 0802 01/02/18 0802 Imaging Last Impressions Bone Biopsy CT 01/02/18817 Signed Impressions: Service Date/Time: Tuesday, January 02, 2018 13:18 - CONCLUSION: 1. Uncomplicated CT guided bone marrow aspirate. 2. Uncomplicated CT guided bone marrow biopsy. Joaquim Hernandez MD FACR Chest X-Ray 12/31/17 0341 Signed Impressions: Service Date/Time: Sunday, December 31, 2017 03:58 - CONCLUSION: Bibasilar opacities. Maycol Daniel MD Cholangiopancreatography MRI 12/31/17 0000 Signed Impressions: Service Date/Time: Sunday, December 31, 2017 18:50 - CONCLUSION: Small to moderate bilateral complex pleural effusions. Mild periportal edema in the liver with minimal ascites and anasarca. No biliary ductal or pancreatic ductal dilatation. Numerous gallstones. Jovanni Meeks MD Objective Remarks GENERAL: This is a well-nourished, well-developed patient, in no apparent distress. SKIN: No rashes, ecchymoses or lesions. Cool and dry. Jaundiced. HEAD: Atraumatic. Normocephalic. No temporal or scalp tenderness. EYES: Pupils equal round and reactive. Extraocular motions intact. No scleral icterus. No injection or drainage. ENT: Nose without bleeding, purulent drainage or septal hematoma. Throat without erythema, tonsillar hypertrophy or exudate. Uvula midline. Airway patent. NECK: Trachea midline. No JVD or lymphadenopathy. Supple, nontender, no meningeal signs. CARDIOVASCULAR: Regular rate and rhythm without murmurs, gallops, or rubs. RESPIRATORY: Mild crackles at the right base. GASTROINTESTINAL: Abdomen soft, non-tender, nondistended. No hepato-splenomegaly , or palpable masses. No guarding. MUSCULOSKELETAL: Extremities without clubbing, cyanosis, or edema. No joint tenderness, effusion, or edema noted. NEUROLOGICAL: Awake and alert. Cranial nerves II through XII intact. Motor and sensory grossly within normal limits. Five out of 5 muscle strength in all muscle groups. Normal speech. PSYCH: Mood and affect appropriate. Procedures Bone marrow biopsy 01/02 Medications and IVs Current Medications Medications (Trade) Dose Ordered Sig/Angeline Route Start Time Stop Time Status Last Admin Ceftriaxone Sodium 1000 mg/ Sodium Chloride 100 ml @ 200 mls/hr Q24H IV 01/01/18 06:00 01/02/18 05:49 Azithromycin 500 mg/Sodium Chloride 250 ml @ 250 mls/hr Q24H IV 01/01/18 06:00 01/02/18 05:49 (Duoneb Neb) 1 ampule Q4HR NEB PRN NEB 12/31/17 05:00 (NS Flush) 2 ml UNSCH PRN IV FLUSH 12/31/17 05:00 (NS Flush) 2 ml BID IV FLUSH 12/31/17 09:00 01/01/18 20:40 (Zofran Inj) 4 mg Q6H PRN IVP 12/31/17 05:00 01/02/18 08:35 (Morphine Inj) 2 mg Q3H PRN IV PUSH 12/31/17 05:00 (Roxicodone) 5 mg Q4H PRN PO 12/31/17 05:00 12/31/17 20:19 (Anita-Colace) 1 tab BID PO 12/31/17 09:00 01/01/18 20:40 (Milk Of Magnesia Liq) 30 ml Q12H PRN PO 12/31/17 05:00 (Senokot) 17.2 mg Q12H PRN PO 12/31/17 05:00 (Dulcolax Supp) 10 mg DAILY PRN RECTAL 12/31/17 05:00 (Lactulose Liq) 30 ml DAILY PRN PO 12/31/17 05:00 (Cardizem Cd) 120 mg DAILY PO 12/31/17 09:00 01/02/18 08:35 (Lopressor) 50 mg Q12HR PO 01/01/18 16:00 01/02/18 08:35 Sodium Chloride 250 ml @ 15 mls/hr ONCE ONCE IV 01/02/18 11:30 01/03/18 04:09 01/02/18 11:19 (Tylenol) 650 mg Q4H PRN PO 01/02/18 10:45 01/02/18 23:59 01/02/18 11:18 (Benadryl) 25 mg Q4H PRN PO 01/02/18 10:45 01/02/18 23:59 01/02/18 11:22 A/P Problem List: (1) Anemia ICD Code: D64.9 - Anemia, unspecified Status: Acute Assessment and Plan Acute on chronic anemia with history of hemochromatosis and leukocytosis S/p PRBC transfusion. Hematology consult appreciated. Concern for leukemia. Bone marrow biopsy performed 01/02. - will continue to monitor CBC. - transfer to oncology floor. - GI following. CAP With leukocytosis and bibasilar opacities on CXR. - started on IV ceftriaxone and azithromycin. Atrial fibrillation On Coumadin with supratherpeutic INR. HR controlled. - continue Cardizem and metoprolol. - Coumadin on hold. Vit K per hematology. Hypertension Well controlled. - resumed Cardizem and metoprolol. Elevated LFT's Recent hepatitis panel negative and liver US with gallstones with no biliary duct dilatation. GI consult appreciated. MRCP noted. - follow LFTs. Improving. - GI following. DVT prophylaxis: Coumadin on hold Discharge Planning Transfer to oncology floor Venkata Jules DO Jan 02, 2018 15:36
[2018-01-02] MEDS ORDERED: BENZONATATE 100 MG CAP PO ONE (16:00)
[2018-01-02 16:28] LABS: ALPHA-1-ANTITRYPSIN 197 mg/dL (100 - 190)
[2018-01-02] MEDS ORDERED: BENZONATATE 100 MG CAP PO PRN (18:00)
[2018-01-02 22:30] LABS: ALB/GLOB RATIO (SPE) 0.98 (1.39-2.23)
[2018-01-03] VITALS (11 sets, daily range): BP systolic 97–160; BP diastolic 60–90; PULSE 90–135; RESP 18–26; TEMP 92.7–97.8; O2SAT 90–100
[2018-01-03] MEDS: AZITHROMYCIN INJ 500 MG in SODIUM CHLOR 0.9% 250 ML INJ 250 ML IV SCH (06:02)
[2018-01-03] MEDS: cefTRIAXone INJ 1,000 MG in SODIUM CHLORIDE 0.9% INJ 100 ML IV SCH (06:02)
[2018-01-03 07:35] LABS: HEMATOCRIT 23.2 % (35.0-46.0); HEMOGLOBIN 7.9 GM/DL (11.6-15.3); MEAN CORPUSCULAR HEMOGLOBIN 31.5 PG (27.0-34.0); MEAN CORPUSCULAR HGB CONC 33.9 % (32.0-36.0); MEAN PLATELET VOLUME 11.3 FL (7.0-11.0); PLATELET COUNT 130 TH/MM3 (150-450); RED BLOOD COUNT 2.49 MIL/MM3 (4.00-5.30); RED CELL DISTRIBUTION WIDTH 19.1 % (11.6-17.2); WHITE BLOOD COUNT 27.1 TH/MM3 (4.0-11.0)
[2018-01-03 07:39] LABS: ALBUMIN 2.9 GM/DL (3.4-5.0); BICARBONATE 21.8 MEQ/L (21.0-32.0); CALCIUM 8.2 MG/DL (8.5-10.1); CREATININE 0.77 MG/DL (0.50-1.00); DIRECT BILIRUBIN ADULT 4.3 MG/DL (0.0-0.2); MAGNESIUM 1.8 MG/DL (1.5-2.5)
[2018-01-03 07:42] LABS: INDIRECT BILIRUBIN 2.4 MG/DL (0.0-0.8); TOTAL BILIRUBIN ADULT 6.7 MG/DL (0.2-1.0); TOTAL PROTEIN 7.3 GM/DL (6.4-8.2)
[2018-01-03] MEDS: SODIUM CHLORIDE 0.9% FLUSH 10 ML FLUSH IV FLUSH SCH (08:05)
[2018-01-03] MEDS: ONDANSETRON HCL 4 MG/2 ML VIAL IVP PRN (08:06)
[2018-01-03] MEDS: METOPROLOL TARTRATE 50 MG TAB PO SCH (08:06)
[2018-01-03] MEDS: DILTIAZEM-CD 120 MG CAP ER PO SCH (08:08)
[2018-01-03] MEDS: DOCUSATE SODIUM 50 MG/SENNA 8.6 MG TAB PO SCH (08:08)
[2018-01-03] MEDS ORDERED: HEPARIN-D5W 25,000 U/250 ML 250 ML IV PRN (08:30)
[2018-01-03] MEDS ORDERED: NOREPINEPHRINE-DEXTROSE DRIP 250 ML IV ONE (10:05)
[2018-01-03] MEDS ORDERED: VASOPRESSIN 20 UNITS/ML VIAL ONE (10:25)
[2018-01-03] MEDS ORDERED: SODIUM BICARBONATE 8.4% INJ 50 MEQ/50 ML SYR ONE (10:31)
[2018-01-03] MEDS ORDERED: EPINEPHrine HCL (1:1000) 1 MG/ML VIAL ONE (10:31)
[2018-01-03] MEDS ORDERED: MAGNESIUM SULFATE INJ 4 GM in SODIUM CHLORIDE 0.9% INJ 92 ML IV PRN (10:45)
[2018-01-03] MEDS ORDERED: TERBUTALINE INJ 1 MG/ML AMP SQ PRN (10:45)
[2018-01-03] MEDS ORDERED: SODIUM CHLOR 0.9% 250 ML INJ 250 ML IV ONE ×2 (10:45→13:00)
[2018-01-03] MEDS ORDERED: POTASSIUM PHOSPHATE MONOBASIC 500 MG TAB PO PRN (10:45)
[2018-01-03] MEDS ORDERED: EPINEPHrine (1:1000) INJ 2 MG in DEXTROSE 5% IN WATER INJ 250 ML IV PRN ×2 (10:45)
[2018-01-03] MEDS ORDERED: MAGNESIUM SULFATE INJ 2 GM in SODIUM CHLORIDE 0.9% INJ 96 ML IV PRN (10:45)
[2018-01-03] MEDS ORDERED: POTASSIUM PHOSPHATE MONOBASIC 500 MG TAB PO/TUBE PRN (10:45)
[2018-01-03] MEDS ORDERED: SODIUM PHOSPHATE INJ 30 MMOL in SODIUM CHLOR 0.9% 250 ML INJ 240 ML IV PRN (10:45)
[2018-01-03] MEDS ORDERED: POTASSIUM CHLOR 40 MEQ PREMIX 100 ML IV PRN ×2 (10:45)
[2018-01-03] MEDS ORDERED: POTASSIUM CHLOR 20 MEQ PREMIX 100 ML IV PRN ×2 (10:45)
[2018-01-03] MEDS ORDERED: DEXTROSE 50% IN WATER 50 ML VIAL(D50) IV PUSH PRN (10:45)
[2018-01-03] MEDS ORDERED: POTASSIUM PHOSPHATE INJ 30 MMOL in SODIUM CHLOR 0.9% 250 ML INJ 250 ML IV PRN (10:45)
[2018-01-03] MEDS ORDERED: POTASSIUM CHLORIDE 25 MEQ EFFERVESCENT TAB PO PRN (10:45)
[2018-01-03] MEDS ORDERED: MAGNESIUM OXIDE 400 MG TAB PO PRN (10:45)
[2018-01-03] MEDS ORDERED: NOREPINEPHRINE-DEXTROSE DRIP 250 ML IV PRN (10:45)
--- NOTE | 2018-01-03 11:05 | PD.PROCEDR ---
Central Line Procedure REASON FOR PROCEDURE Cardiac arrest/PEA PROCEDURE PERFORMED Central line placement: R femoral central line placed during CPR CONSENT Emergency procedure ANESTHESIA Local injection of 1% Lidocaine DESCRIPTION OF THE PROCEDURE The patient was placed in supine, mild Trendelenburg position. The area was exposed and cleansed with ChloraPrep, times two. Large sterile drape was used to cover the patient. On single attempt, the introducer needle was inserted with negative pressure in syringe and venous flash was obtained. The guide wire was then advanced without any restriction and the needle was removed. The dilator was used without any complications. Using Seldinger technique the 20 CM 7F triple lumen catheter was advanced over the guide wire to a depth of 19 centimeters. The guide wire was removed. All ports were aspirated with dark venous blood return and flushed easily with sterile saline. All ports were capped. Antibiotic disc was placed around central line at puncture site. The central line was secured to the skin with two interrupted 2.0 silk sutures. The area was bandaged with sterile see-through central line bandage. COMPLICATIONS: No apparent complications ESTIMATED BLOOD LOSS: Less than 1 cc. Zeenat Gordon MD Jan 03, 2018 11:05
--- NOTE | 2018-01-03 11:09 | HHI.GIFU ---
Subjective Remarks Pt was transferred to ICU Per RN pt found to be unresponsive and pulseless S/P ACLS with ROSC Pt now intubated on Levo and Epi gtt (Deana Kwon) Remarks Chart was reviewed, event was noted, unfortunately patient secondary to DIC (Mitzy Oden MD) Objective Vitals I&O Vital Signs Date Time Temp Pulse Resp B/P (MAP) Pulse Ox O2 Delivery O2 Flow Rate FiO2 01/03/18 10:30 100 100 01/03/18 10:15 100 100 01/03/18 08:00 97.7 110 18 155/82 (106) 99 01/03/18 04:00 97.5 116 20 160/78 (105) 96 01/03/18 00:00 97.8 94 18 155/79 (104) 97 01/02/18 21:03 97.5 99 16 135/76 94 01/02/18 20:00 97.5 102 16 150/76 (100) 01/02/18 19:46 Nasal Cannula 2.00 01/02/18 18:15 98.0 105 17 144/72 (96) 94 01/02/18 18:15 98.0 105 17 144/72 94 01/02/18 18:00 98.5 94 18 141/73 96 01/02/18 16:00 97.8 82 18 140/67 (91) 96 01/02/18 14:40 81 18 135/75 (95) 94 01/02/18 14:10 78 20 130/84 (99) 93 01/02/18 13:55 98.2 74 20 131/80 (97) 92 01/02/18 12:11 97.8 100 19 146/75 97 01/02/18 11:48 97.9 84 19 153/69 I/O 01/02/18 01/02/18 01/02/18 01/03/18 01/03/18 01/03/18 07:00 15:00 23:00 07:00 15:00 23:00 Intake Total 0 ml 707 ml Balance 0 ml 707 ml Intake Oral 0 ml FFP 685 ml Blood Product IV Normal Saline Flush 22 ml # Voids 2 2 3 # Bowel Movements 1 Laboratory Laboratory Tests Test 01/02/18 13:15 01/03/18 05:26 01/03/18 10:20 White Blood Count 27.1 Red Blood Count 2.49 Hemoglobin 7.9 Hematocrit 23.2 Mean Corpuscular Volume 93.0 Mean Corpuscular Hemoglobin 31.5 Mean Corpuscular Hemoglobin Concent 33.9 Red Cell Distribution Width 19.1 Platelet Count 130 Mean Platelet Volume 11.3 Blood Urea Nitrogen 24 Creatinine 0.77 Random Glucose 133 Total Protein 7.3 Albumin 2.9 Calcium Level 8.2 Magnesium Level 1.8 Alkaline Phosphatase 280 Aspartate Amino Transf (AST/SGOT) 163 Alanine Aminotransferase (ALT/SGPT) 145 Total Bilirubin 6.7 Direct Bilirubin 4.3 Sodium Level 139 Potassium Level 3.7 Chloride Level 106 Carbon Dioxide Level 21.8 Anion Gap 11 Estimat Glomerular Filtration Rate 72 Indirect Bilirubin 2.4 Blood Gas Puncture Site ART LINE Blood Gas Patient Temperature 98.6 Blood Gas HCO3 8 Blood Gas Base Excess -21.6 Blood Gas Oxygen Saturation 96 Arterial Blood pH 6.97 Arterial Blood Partial Pressure CO2 36 Arterial Blood Partial Pressure O2 185 Arterial Blood Oxygen Content 9.3 Arterial Blood Carboxyhemoglobin 0.5 Arterial Blood Methemoglobin 1.2 Blood Gas Hemoglobin 6.6 Oxygen Delivery Device VENTILATOR Blood Gas Ventilator Setting PRVC24/500/1.0/+8 Blood Gas Inspired Oxygen 100 Date/Time Source Procedure Growth Status 01/03/18 09:05 Stool Stool Stool Occult Blood (MARLENA) Pending Received Imaging Last Impressions Bone Biopsy CT 01/02/18 0818 Signed Impressions: Service Date/Time: Tuesday, January 02, 2018 13:18 - CONCLUSION: 1. Uncomplicated CT guided bone marrow aspirate. 2. Uncomplicated CT guided bone marrow biopsy. Joaquim Hernandez MD FACR Chest X-Ray 12/31/17 0341 Signed Impressions: Service Date/Time: Sunday, December 31, 2017 03:58 - CONCLUSION: Bibasilar opacities. Maycol Daniel MD Cholangiopancreatography MRI 12/31/17 0000 Signed Impressions: Service Date/Time: Sunday, December 31, 2017 18:50 - CONCLUSION: Small to moderate bilateral complex pleural effusions. Mild periportal edema in the liver with minimal ascites and anasarca. No biliary ductal or pancreatic ductal dilatation. Numerous gallstones. Jovanni Meeks MD Physical Exam HEENT: (+) icterus CHEST: Respirations synchronized with vent via ETT CARDIAC: Irregularly irregular, tachycardic ABDOMEN: Distended, soft, bowel sounds absent SKIN: (+) jaundice. HOST AND HOSTESS: Unresponsive (Deana Kwon) Assessment and Plan Plan - elevated LFTs - could be r/t hemochromatosis but will get MRCP and liver w/u to r/o other cause elevated liver chem, obstruction. denies heavy etoh. US 12/07/17 showed gallstones, no duct dilatation, CT 12/07 showed suspected venous congestion liver. hep panel at that time was negative. - anemia hgb 6.2 on admission - no obvious bleeding. sees hematology for hemochromatosis, gets phlebotomy. on coumadin for AF. last colonoscopy years ago in [place], normal. - thrombocytopenia - PLT 149 01/01/18 hem/onc now following, initiated w/u for leukemia, pt going for bm bx today. MRCP noted, gallstones, min ascites, anasarca, mild periportal edema, no ductal dilatation. serum iron, ferritin, saturation are high. LFT elevation likely 2/2 iron overload. no obvious GI bleeding. (01/02) Pt reports some nausea, relieved with antiemetics, denies emesis. Denies abdominal pain. H/H remains stable over night. Hemoccult stool pending. Bone marrow biopsy pending. Pt reports last EGD was 3-4 years ago, unsure of findings. has never had colonoscopy. Denies history of GIB. Platelets remain about the same- 141 INR- 2.1 --> 2 U FFP ordered for transfusion today LFTs improving some today. Alk phos remains the same. Liver DAO pending. (01/03) Significant change in patients status. She was found unresponsive and pulseless, S/P ACLS with ROSC. Now intubated and on Epi and Levo gtts. Pupils are fixed and dilated. LFTs from this morning reveal increase in total bili and Alk phos. AST and ALT with minimal decrease. H/H dropped, currently 7.9/23.2. No obvious GIB. OG has not been placed yet. Bone marrow biopsy is still pending. Liver Work up SAM negative, Ferritin-3311 Iron-233 %sat 99.1 AFP-2.7 [id number] hepatitis panel negative ASMA neg AMA and ceruloplasmin, pending MRCP (12/31) --> Mild periportal edema in the liver with minimal ascites and anasarca. No biliary ductal or pancreatic ductal dilatation. Numerous gallstones. PLAN - AMA and ceruloplasmin pending - Pt has significant change in status, will expect LFTs to go up secondary to shock liver - Will continue to monitor - Drop in H/H noted, bone marrow biopsy pending, pt not stable for GI procedures - Further recommendations based on clinical course Pt has been seen and examined by myself and Dr. Oden and this note is written on his behalf (Deana Kwon) Deana Kwon Jan 03, 2018 11:09 Mitzy dOen MD Jan 03, 2018 15:45
--- NOTE | 2018-01-03 11:14 | PD.CONS ---
[facility] Service Critical Care Medicine Consult Requested By Code team Reason for Consult PEA Arrest Primary Care Physician Batsheva Elise MD History of Present Illness Due to the emergent nature of the consult, complete history and details are unavailable. In brief, this is a 82yF with a history of hemochromatosis and afib who was being worked up for elevated LFTs and a possible blood disorder or leukemia who was found by a r&d lab technician this morning unresponsive and was found to be in PEA arrest. ACLS was started. ROSC was obtained 3 separate time, but each time, pulses were lost. ROSC was obtained a final time. emergent intubation and central and arterial lines were placed, see separate details. patient was started on epinephrine and norepinephrine drips. ABG demonstrated severe metabolic acidosis pH 6.9. 6 amps bicarb were given. stat CT head and CTA pulmonary angiogram were ordered. discussed case with oncology that suggested heparin had been held for bone marrow biopsy so thromboembolic phenomena is on the differential. no additional information is available from the patient. ROS unobtainable. Review of Systems ROS Limitations: Clinical Condition, Intubated, Altered Mental Status, Unresponsive Past Family Social History Allergies: Coded Allergies: Penicillins (Verified Allergy, Severe, vomiting, 12/06/17) Sulfa (Sulfonamide Antibiotics) (Verified Allergy, Severe, vomiting, ) ciprofloxacin (Verified Allergy, Severe, vomiting, 12/06/17) Past Medical History unobtainable due to clinical condition. per chart review: hemochromatosis atrial fibrillation hypertension. Past Surgical History unobtainable due to clinical condition. per chart review: hysterectomy hip replacement. Reported Medications Warfarin 1 Mg Tab 1.25 Mg PO SUNDAY Warfarin 2.5 Mg Tab 2.5 Mg PO DAILY Valsartan 320 Mg Tab 320 Mg PO DAILY Premarin (Estrogens Conjugated) 0.3 Mg Tab 0.3 Mg PO DAILY Omeprazole 20 Mg Tab 20 Mg PO DAILY Metoprolol Succinate/HCTZ 100-12.5 ER 100 Mg-12.5 Mg Tab 1 Tab PO DAILY Cartia Xt (Diltiazem ER 24 HR) 120 Mg Caper 120 Mg PO DAILY Active Ordered Medications See MAR Family History unobtainable due to clinical condition. per chart review: leukemia in brother. Social History unobtainable due to clinical condition. per chart review: denied tob. occ etoh. Physical Exam Vital Signs Vital Signs Date Time Temp Pulse Resp B/P (MAP) Pulse Ox O2 Delivery O2 Flow Rate FiO2 01/03/18 10:30 100 100 01/03/18 10:15 100 100 01/03/18 08:00 97.7 110 18 155/82 (106) 99 01/03/18 04:00 97.5 116 20 160/78 (105) 96 01/03/18 00:00 97.8 94 18 155/79 (104) 97 01/02/18 21:03 97.5 99 16 135/76 94 01/02/18 20:00 97.5 102 16 150/76 (100) 01/02/18 19:46 Nasal Cannula 2.00 01/02/18 18:15 98.0 105 17 144/72 (96) 94 01/02/18 18:15 98.0 105 17 144/72 94 01/02/18 18:00 98.5 94 18 141/73 96 01/02/18 16:00 97.8 82 18 140/67 (91) 96 01/02/18 14:40 81 18 135/75 (95) 94 01/02/18 14:10 78 20 130/84 (99) 93 01/02/18 13:55 98.2 74 20 131/80 (97) 92 01/02/18 12:11 97.8 100 19 146/75 97 01/02/18 11:48 97.9 84 19 153/69 Physical Exam gen: elderly female, lying in bed, unresponsive, critically ill. heent: pupils 6mm, equal, dilated, fixed. mucous membranes moist. neck: no jvd. trachea midline. chest: intubated with 8.0 ett at 22cm at the teeth. coarse bilateral breath sounds. cv: tachycardic rate, irregularly irregular rhythm. afib. on norepinephrine and epinephrine abd: soft, nontender, nondistended. no guarding. extr: cool, poorly perfused. mottled. no edema. neuro: GCS 3. pupils as above. - cough. - gag. - corneals. Laboratory Laboratory Tests Test 01/02/18 13:15 01/03/18 05:26 01/03/18 10:20 White Blood Count 27.1 Red Blood Count 2.49 Hemoglobin 7.9 Hematocrit 23.2 Mean Corpuscular Volume 93.0 Mean Corpuscular Hemoglobin 31.5 Mean Corpuscular Hemoglobin Concent 33.9 Red Cell Distribution Width 19.1 Platelet Count 130 Mean Platelet Volume 11.3 Blood Urea Nitrogen 24 Creatinine 0.77 Random Glucose 133 Total Protein 7.3 Albumin 2.9 Calcium Level 8.2 Magnesium Level 1.8 Alkaline Phosphatase 280 Aspartate Amino Transf (AST/SGOT) 163 Alanine Aminotransferase (ALT/SGPT) 145 Total Bilirubin 6.7 Direct Bilirubin 4.3 Sodium Level 139 Potassium Level 3.7 Chloride Level 106 Carbon Dioxide Level 21.8 Anion Gap 11 Estimat Glomerular Filtration Rate 72 Indirect Bilirubin 2.4 Blood Gas Puncture Site ART LINE Blood Gas Patient Temperature 98.6 Blood Gas HCO3 8 Blood Gas Base Excess -21.6 Blood Gas Oxygen Saturation 96 Arterial Blood pH 6.97 Arterial Blood Partial Pressure CO2 36 Arterial Blood Partial Pressure O2 185 Arterial Blood Oxygen Content 9.3 Arterial Blood Carboxyhemoglobin 0.5 Arterial Blood Methemoglobin 1.2 Blood Gas Hemoglobin 6.6 Oxygen Delivery Device VENTILATOR Blood Gas Ventilator Setting PRVC24/500/1.0/+8 Blood Gas Inspired Oxygen 100 Result Diagram: 01/03/1852501/03/18 0526 Imaging Last Impressions Bone Biopsy CT 01/02/18 0818 Signed Impressions: Service Date/Time: Tuesday, January 02, 2018 13:18 - CONCLUSION: 1. Uncomplicated CT guided bone marrow aspirate. 2. Uncomplicated CT guided bone marrow biopsy. Joaquim Hernandez MD FACR Chest X-Ray 12/31/17 0341 Signed Impressions: Service Date/Time: Sunday, December 31, 2017 03:58 - CONCLUSION: Bibasilar opacities. Maycol Daniel MD Cholangiopancreatography MRI 12/31/17 0000 Signed Impressions: Service Date/Time: Sunday, December 31, 2017 18:50 - CONCLUSION: Small to moderate bilateral complex pleural effusions. Mild periportal edema in the liver with minimal ascites and anasarca. No biliary ductal or pancreatic ductal dilatation. Numerous gallstones. Jovanni Meeks MD Assessment and Plan Assessment and Plan Assessment: 82yF with afib and being worked up for anemia and possible leukemia who has now sustained PEA arrest and is in cardiogenic shock. very critically ill. CT brain and pulmonary angiogram to rule out catastrophic bleed or PE. have had discussion with significant other- very unlikely to survive this acute insult. Plan by systems: Neurologic: Hypoxic ischemic encephalopathy Frequent neurochecks Avoid sedatives Not a candidate for post cardiac arrest hypothermia protocol due to concern for coagulopathy, anemia, cancer Stat head CT Respiratory: Acute hypoxic and hypercarbic respiratory failure Wean FiO2 for goal SPO2 greater than 90% Vent bundle Elevated Head of bed Nebs No weaning of mechanical ventilation until mental status improves Cardiovascular: Cardiogenic shock Status post PEA arrest Atrial fibrillation Continue norepinephrine and epinephrine for goal map greater than [address] pulmonary angiogram Add pulse contour analysis Trend lactate Renal: Acute kidney injury Place Schafer -- Strict I/Os FEN/GI: Severe acute anion gap metabolic acidosis Hypokalemia Lactic acidosis Acute protein calorie malnutrition-moderate ICU electrolyte protocol Normal saline IV fluids N.p.o. while in shock Daily BMP Trend ABGs Heme/ID: Severe anemia-unknown etiology being worked up by hematology Continue Rocephin and azithromycin per primary team's recommendation for empiric coverage of possible community acquired pneumonia Will defer to hematology regarding workup of anemia Transfuse 1 unit PRBCs for hemoglobin of 6.6 Endocrine: Hyperglycemia of critical illness -- SSI, medium scale, every 4 Prophylaxis: GI Prophylaxis Pepcid DVT Prophylaxis -- SCDs Patient was on heparin drip for atrial fibrillation, we will plan to hold this and follow-up CT brain scan in CT pulmonary angiogram before deciding whether or not to continue Lines: 01/03 right femoral triple-lumen catheter 12 left brachial arterial line Schafer Dispo: Very critically ill. Admit to ICU. This patient remains critically ill with one or more organ systems which are or may become a threat to life. I have spent in excess of 84 minutes discontinuously in the care and management of this patient. This time is exclusive of procedures, and includes, but is not limited to, evaluation of the patient, review of the medical record, discussions with family, consultants, nursing staff, or respiratory therapy, and documentation in the medical record. Gary Telles MD Jan 03, 2018 11:14
--- NOTE | 2018-01-03 11:16 | PD.PROCEDR ---
Procedure Note Procedure Procedure: Arterial Line Placement Left brachial arterial line Diagnosis: Cardiogenic shock Indications: Need for beat to beat hemodynamic monitoring Consent: Emergent Description of the Procedure: The left arm was prepped and draped sterilely. 1 % lidocaine was used for local anesthesia. The pulse was located and a needle was advanced into the artery. A 20 gauge, 12 cm catheter was advanced into the artery using a modified Seldinger technique. The catheter was sutured to the skin and a sterile dressing was applied. The catheter was connected to a pressure transducer and an arterial waveform was noted. There were no immediate complications noted. There was minimal EBL. I personally performed the procedure. Gary Telles MD Jan 03, 2018 11:16
--- NOTE | 2018-01-03 11:16 | PD.PROCEDR ---
Procedure Note Procedure Endotracheal Intubation Diagnosis: Cardiogenic shock Indications: PEA arrest with acute hypoxic and hypercarbic respiratory failure Consent: Emergent Anesthesia: none Description of the Procedure: The patient was positioned in the sniffing position. Pre-oxygenation was performed using a active bag valve masking. No anesthesia was required. A Tawanda #4 was used for laryngoscopy and a Grade IIb view was obtained with cricoid pressure. A 8.0 cuffed endotracheal tube was inserted atraumatically through the vocal cords. Confirmation of correct endotracheal tube placement was made by equal and bilateral breath sounds and colorimetric CO2 detection. The endotracheal tube was secured at 22 cm at the teeth. There were no immediate complications noted. CPR was in progress and continued. A chest x-ray has been ordered. I personally performed the procedure. Gary Telles MD Jan 03, 2018 11:16
--- NOTE | 2018-01-03 11:48 | RADRPT ---
EXAM DATE/TIME: 01/03/2018 10:24 [facility] COMPARISON: CHEST SINGLE AP, December 31, 2017, 3:58. INDICATIONS : Respiratory failure, intubation Code blue MEDICAL HISTORY : Anemia, leukocytosis, hemachromatosis, hypertension SURGICAL HISTORY : Hysterectomy. ENCOUNTER: Subsequent ACUITY: 3 days PAIN SCORE: Non-responsive. LOCATION: Bilateral chest FINDINGS: Portable upright single view of the chest demonstrates cardiac silhouette size at the upper limits fo r normal. The endotracheal tube extends into the right main bronchus by approximately 2.5 cm. There a re is new severe upper lobe consolidation bilaterally, right greater than left. Mild air space consol idation remains in the right lower lung zone. There is likely a small left pleural effusion. No pneum othorax is visualized. Bones demonstrate no acute finding. CONCLUSION: 1. The endotracheal tube extends into the right main bronchus and should be retracted approximately 4 cm. This finding was telephoned to the charge nurse in the ICU at the time of this dictation. The pa tient is in transit to CT department. 2. New severe bilateral upper lung zone predominant airspace consolidation. The rapid development and distribution may indicate pulmonary edema. 3. Stable right lower lung zone airspace consolidation and suspected small left pleural effusion. Evan Braun MD on January 03, 2018 at 11:40 Board Certified Radiologist. This report was verified electronically.
[2018-01-03] MEDS ORDERED: INSULIN NovoLIN REGULAR SUPPLEMENTAL SCALE SQ SCH (12:00)
[2018-01-03] MEDS ORDERED: IOHEXOL 350 MG/ML 10 ML VIAL (for RAD DIAG) IVCONTRAST ONE (12:06)
--- NOTE | 2018-01-03 12:12 | RADRPT ---
EXAM DATE/TIME: 01/03/2018 11:55 [facility] COMPARISON: CT BRAIN W/O CONTRAST, December 06, 2017, 15:46. INDICATIONS : Altered mental status. RADIATION DOSE: 44.68 CTDIvol (mGy) MEDICAL HISTORY : Hypertension. AFIB SURGICAL HISTORY : Hysterectomy. ENCOUNTER: Initial ACUITY: 1 day PAIN SCALE: Non-responsive LOCATION: cranial TECHNIQUE: Multiple contiguous axial images were obtained of the head. Using automated exposure control and adj ustment of the mA and/or kV according to patient size, radiation dose was kept as low as reasonably a chievable to obtain optimal diagnostic quality images. DICOM format image data is available electro nically for review and comparison. FINDINGS: CEREBRUM: There is generalized cerebral atrophy. Ventricles are mildly enlarged but within the range of expecte d given the degree of atrophy. There is periventricular white matter low attenuation and a stable lac une is present in the left caudate nucleus head. No evidence of midline shift, mass lesion, hemorrha ge or acute infarction. No extra-axial fluid collections are seen. POSTERIOR FOSSA: The cerebellum and brainstem are intact. The 4th ventricle is midline. The cerebellopontine angle i s unremarkable. EXTRACRANIAL: Visualized sinuses are clear. SKULL: The calvaria is intact. No evidence of skull fracture. CONCLUSION: 1. No acute intracranial abnormality is identified. 2. Stable chronic findings include generalized atrophy and chronic periventricular white matter andre e. There is a stable old lacune in the left caudate nucleus head. Evan Braun MD on January 03, 2018 at 12:03 Board Certified Radiologist. This report was verified electronically.
--- NOTE | 2018-01-03 12:25 | RADRPT ---
EXAM DATE/TIME: 01/03/2018 12:03 [facility] COMPARISON: CHEST SINGLE AP, January 03, 2018, 10:24. CT PULMONARY ANGIOGRAM, December 06, 2017, 18:09. INDICATIONS : Evaluate for embolism. IV CONTRAST: 60 cc Omnipaque 350 (iohexol) IV RADIATION DOSE: 17.36 CTDIvol (mGy) MEDICAL HISTORY : Hypertension. AFIB SURGICAL HISTORY : Hysterectomy. ENCOUNTER: Initial ACUITY: 1 day PAIN SCALE: Non-responsive LOCATION: chest TECHNIQUE: Volumetric scanning of the chest was performed using a pulmonary embolism protocol MIP images were re constructed. Using automated exposure control and adjustment of the mA and/or kV according to patien t size, radiation dose was kept as low as reasonably achievable to obtain optimal diagnostic quality images. DICOM format image data is available electronically for review and comparison. Follow-up recommendations for detected pulmonary nodules are based at a minimum on nodule size and pa tient risk factors according to Fleischner Society Guidelines. FINDINGS: PULMONARY ARTERIES: No filling defects are seen in the pulmonary arteries through the segmental level. LUNGS: The lungs demonstrate diffuse mixed interstitial and alveolar consolidation of the alveolar consolida tion the most prominent in the right upper lobe. There is suspected atelectasis of the lower lobes bi laterally secondary to the effusions. PLEURAE: There are moderate bilateral pleural effusions being greater on right than left. MEDIASTINUM: ET tube tip is draped in the upper aspect of the right mainstem bronchus. There is good visualization of the great vessels of the middle mediastinum. No evidence of mediastinal or hilar adenopathy/mass . Coronary artery calcifications are present. There is reflux of contrast into the hepatic veins whic h is can be seen with right heart failure MUSCULOSKELETAL: Within normal limits for patient age. MISCELLANEOUS: The visualized upper abdominal organs demonstrate no acute abnormality. CONCLUSION: 1. No pulmonary embolus. 2. Diffuse consolidation likely related to diffuse processes such as edema, diffuse infection or ARDS . 3. ET tube in the right mainstem bronchus. This should be pulled back 3-4 cm. 4. Moderate bilateral pleural effusions. 5. Reflux of contrast into the hepatic veins which can be seen with right heart failure. Evan Birch MD on January 03, 2018 at 12:11 Board Certified Radiologist. This report was verified electronically.
[2018-01-03 12:44] LABS: MEAN CELL VOLUME 98.7 FL (80.0-100.0); MEAN CORPUSCULAR HEMOGLOBIN 31.1 PG (27.0-34.0); MEAN CORPUSCULAR HGB CONC 31.5 % (32.0-36.0); MEAN PLATELET VOLUME 9.3 FL (7.0-11.0); PLATELET COUNT 86 TH/MM3 (150-450); RED BLOOD COUNT 1.89 MIL/MM3 (4.00-5.30); WHITE BLOOD COUNT 43.6 TH/MM3 (4.0-11.0)
[2018-01-03 12:57] LABS: PROTHROMBIN TIME - PATIENT 71.7 SEC (9.8-11.6)
[2018-01-03 12:59] LABS: HEMATOCRIT 18.6 % (35.0-46.0); HEMOGLOBIN 5.9 GM/DL (11.6-15.3)
[2018-01-03 13:00] LABS: INTERNATIONAL NORMALIZED RATIO 7.2 RATIO
[2018-01-03 13:08] LABS: ALBUMIN 1.9 GM/DL (3.4-5.0); CALCIUM 6.8 MG/DL (8.5-10.1); CREATININE 1.14 MG/DL (0.50-1.00); MAGNESIUM 2.3 MG/DL (1.5-2.5)
[2018-01-03] MEDS ORDERED: NOREPINEPHRINE 4 MG/4 ML AMP ONE (13:14)
[2018-01-03 13:22] LABS: CALCIUM-PROTEIN CORRECTED 7.7 MG/DL (8.5-10.1); PHOSPHORUS 7.1 MG/DL (2.5-4.9); TOTAL BILIRUBIN ADULT 5.8 MG/DL (0.2-1.0); TOTAL PROTEIN 5.4 GM/DL (6.4-8.2)
[2018-01-03 13:32] LABS: LACTIC ACID SEPSIS PROTOCOL 23.7 mmol/L (0.4-2.0)
[2018-01-03] MEDS ORDERED: CALCIUM CHLORIDE 10% SOLN 1 GRAM/10 ML SYR ONE (13:38)
[2018-01-03 13:53] LABS: MITOCHONDRIAL ABS LESS THAN 20.0 U (<=20.0)
[2018-01-03 13:54] LABS: D-DIMER GREATER THAN 35.20 MG/L FEU (0.00-0.50)
--- NOTE | 2018-01-03 13:55 | PD.PROCEDR ---
Procedure Note Procedure Tube Thoracostomy Procedure Note Right-sided 32 [place] thoracostomy tube Diagnosis: Hemothorax Indications: Hemothorax with impaired ventilation Consent: Emergent Anesthesia: none Description of the Procedure: The patient was placed in the supine position. The arm was abducted above the head and secured. The right lateral chest was prepped and draped sterilely to include the axilla and nipple. The 5th intercostal space was identified. A small incision was made using a #11 blade. At the mid-axillary line, blunt dissection was performed until the rib was palpated. A Heike clamp was used to bluntly enter the pleura immediately above the adjacent rib. The space was opened bluntly with the Heike clamp. A finger was inserted and lung and pleura were felt. A 32 Fr chest tube was inserted along the course of the finger and into the pleural cavity easily and without resistance. The chest tube was connected to a Pleur-o-vac and connected to [id number] suction. The catheter was sutured to the skin using a 0 silk sandal suture and an occlusive dressing was applied. There were no immediate complications noted. There was minimal EBL. The patient tolerated the procedure well. Chest Tube output: 800 mL sanguinous output A Chest x-ray has been ordered. I personally performed the procedure. Gary Telles MD Jan 03, 2018 13:55
[2018-01-03 14:09] LABS: FIBRINOGEN LESS THAN 50 mg/dL (227-377)
--- NOTE | 2018-01-03 14:18 | DEATH SUM ---
Pronouncement Date Pronounced : Jan 03, 2018 Time Of : 14:16 Pronouncement Called to pronounce of patient. Identified patient as Dayana Ralph with wrist band MR# [id number]. Patient with no cardiac activity in 2 separate leads and no palpable/auscible cardiac activity. Patient with no spontaneous respirations, no corneal reflex or response to painful stimuli. Pupils fixed and dilated. Preliminary Cause of : Cardiac arrest Gary Telles MD Jan 03, 2018 14:18
--- NOTE | 2018-01-03 14:19 | HHI.DS ---
Summary Note Date of : Jan 03, 2018 Time Of : 14:16 Admission Date Dec 31, 2017 at 04:47 Admitting Diagnosis SOB, anemia, jaundice Diagnosis at Time of : (1) Anemia ICD Code: D64.9 - Anemia, unspecified Diagnosis: Principal Procedures Bone marrow biopsy 01/02 Brief History patient is a 82 y/o female with history of hemochromatosis,atrial fibrillation and hypertension who presented to ER with worsening anemia. she was admitted to this hospital about a month ago for the same reason. she was transfused with PRBC, evaluated by hematology and then discharged home. she says that initially she was feeling fine but gradually her sob got worse which made her to come back to ER. she denies any dizziness, chest pain, rectal bleed, black stools, cough or sputum production. she denies any abdominal pain, nausea or vomiting. CBC/BMP: 01/03/18 1130 01/03/18 1130 Significant Findings Laboratory Tests Test 12/31/17 17:45 01/01/18 05:09 01/02/18 08:02 01/02/18 13:15 Erythrocyte Sedimentation Rate 45 mm/hr (0-30) Iron Level 233 MCG/DL (50-170) Total Iron Binding Capacity 235 MCG/DL (250-450) Percent Iron Saturation 99.1 % (20-50) Ferritin 3311 NG/ML (8-252) Lactate Dehydrogenase 970 U/L (84-246) C-Reactive Protein 2.70 MG/DL (0.00-0.30) Albumin/Globulin Ratio 0.98 (1.39-2.23) Dwhbx-5-Ojyyrspqo 0.30 GM/DL (0.11-0.29) Gamma Globulins 2.23 GM/DL (0.50-1.39) White Blood Count 30.4 TH/MM3 (4.0-11.0) 29.2 TH/MM3 (4.0-11.0) Red Blood Count 2.74 MIL/MM3 (4.00-5.30) 2.72 MIL/MM3 (4.00-5.30) Hemoglobin 8.5 GM/DL (11.6-15.3) 8.6 GM/DL (11.6-15.3) Hematocrit 24.9 % (35.0-46.0) 25.0 % (35.0-46.0) Red Cell Distribution Width 18.4 % (11.6-17.2) 19.1 % (11.6-17.2) Platelet Count 133 TH/MM3 (150-450) 141 TH/MM3 (150-450) Mean Platelet Volume 11.1 FL (7.0-11.0) 11.3 FL (7.0-11.0) Band Neutrophils % 13 % (0-6) 10 % (0-6) Lymphocytes % 1 % (9-44) 6 % (9-44) Monocytes % 10 % (0-8) 11 % (0-8) Neutrophils # (Manual) 26.4 TH/MM3 (1.8-7.7) 23.4 TH/MM3 (1.8-7.7) Metamyelocytes 3 % (0-1) Myelocytes 1 % (0-0) Promyelocytes 1 % (0-0) Toxic Granulation 2+ (NORMAL) 1+ (NORMAL) Platelet Estimate LOW (NORMAL) LOW (NORMAL) Ovalocytes 1+ (NORMAL) Prothrombin Time 31.6 SEC (9.8-11.6) 21.0 SEC (9.8-11.6) Blood Urea Nitrogen 21 MG/DL (7-18) 21 MG/DL (7-18) Albumin 2.8 GM/DL (3.4-5.0) 2.6 GM/DL (3.4-5.0) Calcium Level 7.9 MG/DL (8.5-10.1) 8.1 MG/DL (8.5-10.1) Alkaline Phosphatase 265 U/L (45-117) 265 U/L (45-117) Aspartate Amino Transf (AST/SGOT) 400 U/L (15-37) 185 U/L (15-37) Alanine Aminotransferase (ALT/SGPT) 239 U/L (10-53) 166 U/L (10-53) Total Bilirubin 6.2 MG/DL (0.2-1.0) 5.3 MG/DL (0.2-1.0) Jnnfe-8-Hesmkknirxh 197 mg/dL (100 - 190) Platelet Morphology Comment ENLARGED (NORMAL) Acanthocytes OCC (NORMAL) Random Glucose 157 MG/DL (74-106) Carbon Dioxide Level 20.8 MEQ/L (21.0-32.0) Estimat Glomerular Filtration Rate 73 ML/MIN (>89) Test 01/03/18 05:26 01/03/18 10:20 01/03/18 11:20 01/03/18 11:30 White Blood Count 27.1 TH/MM3 (4.0-11.0) 43.6 TH/MM3 (4.0-11.0) Red Blood Count 2.49 MIL/MM3 (4.00-5.30) 1.89 MIL/MM3 (4.00-5.30) Hemoglobin 7.9 GM/DL (11.6-15.3) 5.9 GM/DL (11.6-15.3) Hematocrit 23.2 % (35.0-46.0) 18.6 % (35.0-46.0) Red Cell Distribution Width 19.1 % (11.6-17.2) 20.0 % (11.6-17.2) Platelet Count 130 TH/MM3 (150-450) 86 TH/MM3 (150-450) Mean Platelet Volume 11.3 FL (7.0-11.0) Blood Urea Nitrogen 24 MG/DL (7-18) 27 MG/DL (7-18) Random Glucose 133 MG/DL (74-106) 65 MG/DL (74-106) Albumin 2.9 GM/DL (3.4-5.0) 1.9 GM/DL (3.4-5.0) Calcium Level 8.2 MG/DL (8.5-10.1) 6.8 MG/DL (8.5-10.1) Alkaline Phosphatase 280 U/L (45-117) 244 U/L (45-117) Aspartate Amino Transf (AST/SGOT) 163 U/L (15-37) 6004 U/L (15-37) Alanine Aminotransferase (ALT/SGPT) 145 U/L (10-53) 2471 U/L (10-53) Total Bilirubin 6.7 MG/DL (0.2-1.0) 5.8 MG/DL (0.2-1.0) Direct Bilirubin 4.3 MG/DL (0.0-0.2) Estimat Glomerular Filtration Rate 72 ML/MIN (>89) 46 ML/MIN (>89) Indirect Bilirubin 2.4 MG/DL (0.0-0.8) Blood Gas HCO3 8 mmol/L (22-26) 14 mmol/L (22-26) Blood Gas Base Excess -21.6 mmol/L (-2-2) -12.3 mmol/L (-2-2) Arterial Blood pH 6.97 (7.380-7.420) 7.22 (7.380-7.420) Arterial Blood Partial Pressure CO2 36 mmHg (38-42) 36 mmHg (38-42) Arterial Blood Partial Pressure O2 185 mmHg (61-120) Arterial Blood Oxygen Content 9.3 Vol % (12.0-20.0) 6.9 Vol % (12.0-20.0) Blood Gas Hemoglobin 6.6 G/DL (12.0-16.0) 5.2 G/DL (12.0-16.0) Mean Corpuscular Hemoglobin Concent 31.5 % (32.0-36.0) Prothrombin Time 71.7 SEC (9.8-11.6) Prothromb Time International Ratio 7.2 RATIO Activated Partial Thromboplast Time 128.7 SEC (24.3-30.1) Fibrinogen LESS THAN 50 mg/dL D-Dimer Quantitative (PE/DVT) GREATER THAN 35.20 MG/L FEU Creatinine 1.14 MG/DL (0.50-1.00) Total Protein 5.4 GM/DL (6.4-8.2) Phosphorus Level 7.1 MG/DL (2.5-4.9) Sodium Level 150 MEQ/L (136-145) Carbon Dioxide Level 15.0 MEQ/L (21.0-32.0) Anion Gap 28 MEQ/L (5-15) Lactic Acid Level 23.7 mmol/L (0.4-2.0) Protein Corrected Calcium 7.7 MG/DL (8.5-10.1) Imaging Last Impressions Bone Biopsy CT 01/02/1818 Signed Impressions: Service Date/Time: Tuesday, January 02, 2018 13:18 - CONCLUSION: 1. Uncomplicated CT guided bone marrow aspirate. 2. Uncomplicated CT guided bone marrow biopsy. Joaquim Hernandez MD FACR Chest X-Ray 12/31/17 0341 Signed Impressions: Service Date/Time: Sunday, December 31, 2017 03:58 - CONCLUSION: Bibasilar opacities. Maycol Daniel MD Cholangiopancreatography MRI 12/31/17 0000 Signed Impressions: Service Date/Time: Sunday, December 31, 2017 18:50 - CONCLUSION: Small to moderate bilateral complex pleural effusions. Mild periportal edema in the liver with minimal ascites and anasarca. No biliary ductal or pancreatic ductal dilatation. Numerous gallstones. Jovanni Meeks MD Hospital Course Due to the emergent nature of the consult, complete history and details are unavailable. In brief, this is a 82yF with a history of hemochromatosis and afib who was being worked up for elevated LFTs and a possible blood disorder or leukemia who was found by a laborer hide house this morning unresponsive and was found to be in PEA arrest. ACLS was started. ROSC was obtained 3 separate time, but each time, pulses were lost. ROSC was obtained a final time. emergent intubation and central and arterial lines were placed, see separate details. patient was started on epinephrine and norepinephrine drips. ABG demonstrated severe metabolic acidosis pH 6.9. 6 amps bicarb were given. stat CT head and CTA pulmonary angiogram were ordered. discussed case with oncology that suggested heparin had been held for bone marrow biopsy so thromboembolic phenomena is on the differential. no additional information is available from the patient. ROS unobtainable. CT Pulmonary angiogram was negative for PE and CT brain negative for bleeds. despite this she developed DIC and massive hemorrhage. She had an additional cardiac arrest and additional rounds of ACLS were started. Despite our best efforts, she at 14:16. Gary Telles MD Jan 03, 2018 14:19
[2018-01-03] MEDS ORDERED: CALCIUM CHLORIDE 10% SOLN 1 GRAM/10 ML SYR IV ONE ×2 (14:30→17:46)
[2018-01-03] MEDS ORDERED: EPINEPHrine HCL (1:1000) 30 MG/30 ML VIAL IV ONE (17:46)
[2018-01-03] MEDS ORDERED: EPINEPHrine HCL (1:10,000) 1 MG/10 ML SYRINGE IV ONE ×2 (17:46)
[2018-01-03] MEDS ORDERED: SODIUM BICARBONATE 8.4% INJ 50 MEQ/50 ML SYR IV ONE ×2 (17:46)
[2018-01-03] MEDS ORDERED: CHLORHEXIDINE 0.12% (ORAL KIT) 15 ML CUP MT SCH (20:00)
[2018-01-04 17:50] LABS: CERULOPLASMIN 52 mg/dL (18-53)
--- NOTE | 2018-01-05 11:27 | EKG ---
Date Performed: 01/03/2018 Time Performed: 10:19:14 PTAGE: 82 years EKG: Atrial fibrillation. Right bundle branch block with secondary ST-T wave changes Compared to previous tracing, the right bundle branch block and the marked ST-T wave changes are new. Cannot exc lude ischemia. Clinical correlation needed. Abnormal ECG NO PREVIOUS TRACING DOCTOR: Caleb Crump Interpretating Date/Time 01/05/2018 11:27:24
== END 2018-01-03 17:47 | disposition expired | DRG 814 ==
LOC: NEPC 03:27 → NEDA 04:47 → N06B 08:09 → N03A 01-03 10:04
PROVIDERS: ADMIT Hospitalist; ATTEND Hospitalist
PROC: 30233N1 Transfusion of Nonautologous Red Blood Cells into Peripheral Vein, Percutaneous Approach (ICD-10-PCS; 2017-12-31)
PROC: 30233K1 Transfusion of Nonautologous Frozen Plasma into Peripheral Vein, Percutaneous Approach (ICD-10-PCS; principal; 2018-01-02)
PROC: 07DR3ZX Extraction of Iliac Bone Marrow, Percutaneous Approach, Diagnostic (ICD-10-PCS; 2018-01-02)
PROC: 03HY32Z Insertion of Monitoring Device into Upper Artery, Percutaneous Approach (ICD-10-PCS; 2018-01-03)
PROC: 06HM33Z Insertion of Infusion Device into Right Femoral Vein, Percutaneous Approach (ICD-10-PCS; 2018-01-03)
PROC: 0BH17EZ Insertion of Endotracheal Airway into Trachea, Via Natural or Artificial Opening (ICD-10-PCS; 2018-01-03)
PROC: 4A133B1 Monitoring of Arterial Pressure, Peripheral, Percutaneous Approach (ICD-10-PCS; 2018-01-03)
PROC: 4A133J1 Monitoring of Arterial Pulse, Peripheral, Percutaneous Approach (ICD-10-PCS; 2018-01-03)
PROC: 0W9930Z Drainage of Right Pleural Cavity with Drainage Device, Percutaneous Approach (ICD-10-PCS; 2018-01-03)
PROC: 5A1935Z Respiratory Ventilation, Less than 24 Consecutive Hours (ICD-10-PCS; 2018-01-03)
DX: D75.9 Disease of blood and blood-forming organs, unspecified (principal); K72.00 Acute and subacute hepatic failure without coma; R57.0 Cardiogenic shock; J94.2 Hemothorax; G93.1 Anoxic brain damage, not elsewhere classified; N17.9 Acute kidney failure, unspecified; J96.01 Acute respiratory failure with hypoxia; J96.02 Acute respiratory failure with hypercapnia; I11.0 Hypertensive heart disease with heart failure; I50.9 Heart failure, unspecified; E44.0 Moderate protein-calorie malnutrition; I48.91 Unspecified atrial fibrillation; E87.2 Acidosis; R18.8 Other ascites; D50.9 Iron deficiency anemia, unspecified; D65 Disseminated intravascular coagulation [defibrination syndrome]; D72.829 Elevated white blood cell count, unspecified; Z79.01 Long term (current) use of anticoagulants; E83.119 Hemochromatosis, unspecified; Z96.649 Presence of unspecified artificial hip joint; Z90.710 Acquired absence of both cervix and uterus; Z80.6 Family history of leukemia; K80.20 Calculus of gallbladder without cholecystitis without obstruction; R26.2 Difficulty in walking, not elsewhere classified; I46.9 Cardiac arrest, cause unspecified; R73.9 Hyperglycemia, unspecified; M19.90 Unspecified osteoarthritis, unspecified site
CPT/HCPCS: 31500; 32551; 36430; 36556; 38222; 70450; 71045; 71275; 74181; 76377; 77012; 80048; 80053; 80076; 82103; 82105; 82272; 82390; 82728; 82805; 82948; 83010; 83520; 83540; 83550; 83605; 83615; 83690; 83735; 83880; 84100; 84165; 84484; 85007; 85027; 85044; 85097; 85379; 85384; 85610; 85652; 85730; 86038; 86140; 86255; 86430; 86850; 86880; 86900; 86901; 86920; 86927; 88184; 88185; 88237; 88264; 88305; 88311; 88313; 92950; 93005; 94002; 99152; 99211; C1830; G0463; J0171; J0456; J0692; J0696; J2250; J2405; J3010; J7050; P9016; P9017; Q9967